=== PATIENT | male | born 1970 | race Caucasian/White ===

== ENCOUNTER 2016-11-15 16:36 | Outpatient (CLI) | payer MEDICAID | END 2016-11-15 16:37 | disposition critical access hospital (66) | LOC: EMS 16:36 | PROVIDERS: ATTEND Surgery | DX: R53.1 Weakness (principal); R10.30 Lower abdominal pain, unspecified | CPT/HCPCS: A0425; A0427 ==

== ENCOUNTER 2016-11-15 17:13 | Inpatient (IN) | payer MEDICAID ==
[2016-11-15] MEDS ORDERED: FOLIC ACID INJ 1 MG, THIAMINE INJ 100 MG, MAGNESIUM SULFATE 2 GM, MULTIVITAMIN 10 ML in... IV STA ×5 (17:21)
[2016-11-15] MEDS ORDERED: FAMOTIDINE 20 MG/50 ML 50 ML IV ONE ×2 (17:22→17:39)
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
[2016-11-15] MEDS ORDERED: LORazepam 2 MG/ML SYRINGE IVP STA ×5 (17:33→20:38)
[2016-11-15] MEDS ORDERED: LORazepam 2 MG/ML SYRINGE ONE ×3 (17:39→20:40)
[2016-11-15 18:01] LABS: BASOPHILS % (AUTO) 0.7 %; EOSINOPHILS % (AUTO) 1.1 %; HCT - HEMATOCRIT 23.6 % (42.0-52.0); HGB - HEMOGLOBIN 8.2 g/dL (14.0-18.0); LYMPHOCYTES # (AUTO) 0.9 10^3/uL (1.5-3.5); MEAN CORPUSCULAR HEMOGLOBIN 35.9 pg (27.0-31.0); MEAN CORPUSCULAR HGB CONC 34.8 g/dL (32.0-36.0); MEAN CORPUSCULAR VOLUME 103.1 fL (80.0-94.0); MEAN PLATELET VOLUME 7.6 fL (7.4-11.4); MONOCYTES # (AUTO) 0.6 10^3/uL (0.0-1.0); MONOCYTES % (AUTO) 12.2 %; NEUTROPHILS # (AUTO) 3.1 10^3/uL (1.5-6.6); NUCLEATED RED BLOOD CELLS AUTO 0.2 /100WBC; RED BLOOD COUNT 2.29 10^6/uL (4.70-6.10); RED CELL DISTRIBUTION WIDTH 12.9 % (12.0-15.0); UNCORRECTED WHITE BLOOD COUNT 4.6 x10^3/uL; WHITE BLOOD COUNT 4.6 x10^3/uL (4.8-10.8)
[2016-11-15 18:15] LABS: ALBUMIN/GLOBULIN RATIO 0.9 (1.0-2.2); BILIRUBIN,TOTAL 3.1 mg/dL (0.2-1.0); BUN - BLOOD UREA NITROGEN 5 mg/dL (6-20); CALCIUM 8.5 mg/dL (8.5-10.3); CARBON DIOXIDE - CO2 26 mmol/L (21-32); CHLORIDE 96 mmol/L (101-111); CREATININE 0.6 mg/dL (0.6-1.2); GFR - MDRD 145 (>89); GLUCOSE 117 mg/dL (70-100); LIPASE 149 U/L (22-51); POTASSIUM 2.6 mmol/L (3.5-5.0); SODIUM 130 mmol/L (135-145); TOTAL PROTEIN 6.5 g/dL (6.7-8.2)
--- NOTE | 2016-11-15 18:35 | CT Preliminary Report ---
Exam: CT Abdomen/Pelvis W/O IMPRESSION: 1. Peripancreatic edema suggesting early pancreatitis. 2. Marked elevation right hemidiaphragm such that right phrenic nerve palsy is in the differential. 3. Colonic diverticulosis. 4. Normal appendix. [facility] SITE ID: [id number]
--- NOTE | 2016-11-15 18:41 | CT Report ---
EXAM: CT ABDOMEN AND PELVIS EXAM DATE: 11/15/2016 06:08 PM. CLINICAL HISTORY: Upper abdominal pain, tachycardia. COMPARISONS: None. TECHNIQUE: Routine helical CT imaging was performed through the abdomen and pelvis. IV contrast: None . Enteric contrast: No. Reconstructions: Coronal and sagittal. In accordance with CT protocol optimization, one or more of the following dose reduction techniques w ere utilized for this exam: automated exposure control, adjustment of mA and/or KV based on patient s ize, or use of iterative reconstructive technique. FINDINGS: Lung Bases: Marked elevation right hemidiaphragm without subpulmonic effusion. Liver: Normal. No masses. Gallbladder/Bile Ducts: Unremarkable. Spleen: Normal. Pancreas: Small amount of linear edema surrounding the body and tail of the pancreas. Pancreas is of normal caliber without pancreatic duct dilatation. No appreciable focal pancreatic lesions. Adrenal Glands: Normal. Kidneys: Normal. No masses or hydronephrosis. Peritoneal Cavity/Bowel: Diverticuli off the colon.. No free fluid, free air or adenopathy. No masses or acute inflammatory process. The appendix is well visualized and normal. Pelvic Organs: Normal. The bladder and visualized pelvic organs are within normal limits. Vasculature: No aneurysms or other significant abnormality. Bones: No significant abnormality. Other: None. IMPRESSION: 1. Peripancreatic edema suggesting early pancreatitis. 2. Marked elevation right hemidiaphragm such that right phrenic nerve palsy not excluded. 3. Colonic diverticulosis. 4. Normal appendix. [facility] Referring Provider Line: [phone] SITE ID: [id number]
[2016-11-15 18:59] LABS: BILIRUBIN,URINE NEGATIVE (NEGATIVE); UA w/ MICROSCOPIC CHARGE YES
[2016-11-15] MEDS ORDERED: PANTOPRAZOLE 40 MG in SODIUM CHLORIDE 0.9% 100ML 100 ML IV STA (19:05)
[2016-11-15] MEDS ORDERED: SODIUM CHLORIDE 0.9% 1,000 ML IV ONE (19:05)
[2016-11-15 19:10] LABS: UR CULTURE IF IND INDICATED; WBC,URINE >25 /HPF (0-3)
[2016-11-15] MEDS ORDERED: NICOTINE 21 MG PATCH TOP STA (19:11)
[2016-11-15] MEDS ORDERED: NICOTINE 21 MG PATCH TOP ONE (19:14)
[2016-11-15] MEDS ORDERED: ONDANSETRON 4 MG/2 ML VIAL IVP PRN (19:38)
[2016-11-15] MEDS ORDERED: ACETAMINOPHEN 325 MG TABLET PO PRN (19:38)
[2016-11-15] MEDS ORDERED: MAGNESIUM SULFATE 2 GRAM 50 ML IV ONE ×2 (19:38→20:03)
[2016-11-15] MEDS ORDERED: ONDANSETRON ODT 4 MG TABLET TL PRN (19:38)
[2016-11-15] MEDS: LORazepam 2 MG/ML SYRINGE IVP PRN ×3 (20:11→21:37)
[2016-11-15] MEDS ORDERED: cefTRIAXone 1 GM in SODIUM CHLORIDE 0.9% MINIBAG 100 ML IV STA (20:16)
[2016-11-15] MEDS ORDERED: MAGNESIUM SULFATE 2 GRAM 50 ML IV SCH (20:17)
[2016-11-15] MEDS ORDERED: OLANZapine 10 MG VIAL IM ONE ×2 (20:38→20:41)
[2016-11-15] MEDS ORDERED: ROCURONIUM 50 MG/5 ML VIAL IVP ONE (21:20)
[2016-11-15] MEDS ORDERED: SUCCINYLCHOLINE 200 MG/10 ML VIAL IVP ONE (21:20)
[2016-11-15] MEDS ORDERED: PROPOFOL 200 MG/20 ML VIAL IVP ONE (21:20)
[2016-11-15] MEDS ORDERED: CIPROFLOXACIN 200 MG/100 ML 100 ML IV SCH (22:00)
[2016-11-15] MEDS: LORazepam 100MG/100ML 100 ML IV SCH (22:05)
[2016-11-15] MEDS ORDERED: ETOMIDATE 40 MG/20 ML VIAL IVP PRN (22:22)
[2016-11-15] MEDS: POTASSIUM CHLOR 10 MEQ/100 ML 100 ML IV SCH (22:44)
--- NOTE | 2016-11-15 23:06 | XRAY Preliminary Report ---
Exam: XR Chest 1 View IMPRESSION: 1. Satisfactory endotracheal tube placement. 2. The lungs are clear. 3. Distal end of nasogastric tube placed to gastric fundus. [facility] SITE ID: [id number]
--- NOTE | 2016-11-15 23:08 | XRAY Report ---
EXAM: CHEST RADIOGRAPHY EXAM DATE: 11/15/2016 10:38 PM. CLINICAL HISTORY: Tube placement. COMPARISON: None. TECHNIQUE: 1 view. FINDINGS: Lungs/Pleura: Slightly elevated right hemidiaphragm. The lungs are clear. No pleural effusion or pneu mothorax. Mediastinum: Within exam limitations, cardiomediastinal contour is normal. Other: Tip of endotracheal tube 5 cm above ulysses. Nasogastric tube placed in the gastric fundus. IMPRESSION: 1. Satisfactory endotracheal tube placement. 2. The lungs are clear. 3. Distal end of nasogastric tube placed to gastric fundus. [facility] Referring Provider Line: [phone] SITE ID: [id number]
[2016-11-15] MEDS: SODIUM CHLORIDE FLUSH 0.9% 10 ML SYRINGE IVP SCH (23:10)
[2016-11-15] MEDS ORDERED: PROPOFOL 200 MG/20 ML VIAL IVP PRN (23:14)
[2016-11-15 23:28] LABS: ABG ANALYSIS TIME 2304; ABG HCO3 23.2 mmol/L (22.0-26.0); ABG PCO2 34 mmHg (34-45); ABG PH 7.45 (7.35-7.45); ABG PO2 77 mmHg (80-100); ABG TCO2 24.3 MMOL/L (21.0-29.0)
[2016-11-15 23:29] LABS: ABG BASE EXCESS -0.5 mmol/L (-2.0-3.0); ABG O2 DEVICE VENTILATOR; ABG OXYGEN SATURATION 96 % (94-98); ABG SATURATION PULSE OXIMETRY% 100 %; ABG SITE OF DRAW RIGHT RADIAL; ALLEN TEST POSITIVE
[2016-11-15 23:30] LABS: ABG MODE OF VENTILATION SIMV; ABG PEAK END EXPIRATORY PRESSU 5 cmH2O; ABG PRESSURE SUPPORT VENT 10 cmH2O; ABG RESPIRATORY RATE 14 b/min
[2016-11-15] MEDS ORDERED: PROPOFOL 1000 MG/100 ML 100 ML IV ONE (23:59)
[2016-11-16] MEDS: POTASSIUM CHLOR 10 MEQ/100 ML 100 ML IV SCH ×7 (00:01→05:26)
[2016-11-16 03:57] LABS: BASOPHILS # (AUTO) 0.1 10^3/uL (0.0-0.1); BASOPHILS % (AUTO) 1.3 %; EOSINOPHILS # (AUTO) 0.1 10^3/uL (0.0-0.7); EOSINOPHILS % (AUTO) 1.1 %; HCT - HEMATOCRIT 23.5 % (42.0-52.0); LYMPHOCYTES # (AUTO) 0.8 10^3/uL (1.5-3.5); LYMPHOCYTES % (AUTO) 16.6 %; MEAN CORPUSCULAR HEMOGLOBIN 35.5 pg (27.0-31.0); MEAN CORPUSCULAR HGB CONC 34.1 g/dL (32.0-36.0); MEAN CORPUSCULAR VOLUME 104.3 fL (80.0-94.0); MEAN PLATELET VOLUME 7.5 fL (7.4-11.4); MONOCYTES # (AUTO) 0.5 10^3/uL (0.0-1.0); MONOCYTES % (AUTO) 11.6 %; NEUTROPHILS # (AUTO) 3.2 10^3/uL (1.5-6.6); NEUTROPHILS % (AUTO) 69.4 %; NUCLEATED RED BLOOD CELLS AUTO 0.1 /100WBC; RED BLOOD COUNT 2.25 10^6/uL (4.70-6.10); UNCORRECTED WHITE BLOOD COUNT 4.7 x10^3/uL; WHITE BLOOD COUNT 4.7 x10^3/uL (4.8-10.8)
[2016-11-16 04:11] LABS: BILIRUBIN,TOTAL 2.7 mg/dL (0.2-1.0); BUN - BLOOD UREA NITROGEN < 5 mg/dL (6-20); CALCIUM 7.9 mg/dL (8.5-10.3); CARBON DIOXIDE - CO2 22 mmol/L (21-32); CHLORIDE 107 mmol/L (101-111); CREATININE 0.5 mg/dL (0.6-1.2); GFR - MDRD 179 (>89); GLUCOSE 101 mg/dL (70-100); MAGNESIUM 2.6 mg/dL (1.7-2.8); POTASSIUM 2.7 mmol/L (3.5-5.0); SODIUM 135 mmol/L (135-145); TOTAL PROTEIN 5.9 g/dL (6.7-8.2)
[2016-11-16 04:13] LABS: PHOSPHORUS < 1.0 mg/dL (2.5-4.6)
[2016-11-16] MEDS: POTASSIUM PHOSPHATE 15 MMOL in SODIUM CHLORIDE 0.9% 250 ML IV SCH ×2 (04:48→10:09)
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
[2016-11-16] MEDS ORDERED: PROPOFOL 1000 MG/100 ML 100 ML IV ONE (06:26)
[2016-11-16] MEDS: PANTOPRAZOLE 40 MG VIAL IVP SCH ×2 (06:28→15:54)
[2016-11-16] MEDS: SODIUM CHLORIDE FLUSH 0.9% 10 ML SYRINGE IVP SCH ×3 (06:28→23:35)
[2016-11-16] MEDS: PROPOFOL 1000 MG/100 ML 100 ML IV SCH ×3 (06:35→20:33)
[2016-11-16 07:20] LABS: FOLATE 13.51 ng/mL (5.90 - >24.8)
[2016-11-16] MEDS ORDERED: SODIUM CHLORIDE 0.9% 1,000 ML IV ONE (08:00)
--- NOTE | 2016-11-16 08:20 | PROVIDER PROGRESS NOTE ---
Assessment/Plan - Problem List (1) GI bleed Qualifiers: GI bleed type/associated pathology: unspecified gastrointestinal hemorrhage type Qualified Code(s): K92.2 - Gastrointestinal hemorrhage, unspecified Assessment/Plan: reji is moderately anemic and reports black stool last week Hemoccult pending Not urgent need for consult or EGD. (2) Pancreatitis Qualifiers: Chronicity: acute Pancreatitis type: alcohol induced Acute pancreatitis complication: unspecified Qualified Code(s): K85.20 - Alcohol induced acute pancreatitis without necrosis or infection Assessment/Plan: Lipase almost nml Will not neeed further diagnostics at this point. Likewise MRCP will be postponed. (3) UTI (urinary tract infection) Qualifiers: Urinary tract infection type: site unspecified Hematuria presence: with hematuria Qualified Code(s): N39.0 - Urinary tract infection, site not specified; R31.9 - Hematuria, unspecified Assessment/Plan: His culture results are pending. Will change cipro to Rocephin due to potential propofol interaction. (4) Acute alcohol intoxication delirium with moderate or severe use disorder Assessment/Plan: He was extremely aggitated and hstile last night requiring his sedation and intubation. Will not try a CPAP trial for 24 hours at the least. He is hypotensive with the propofol so giving a saline bolus and may need to give PRBCs. This could be a 5-7 day seige. - Current Meds Current Meds: Current Medications Generic Name Dose Route Start Last Admin Trade Name Freq PRN Reason Stop Dose Admin Lorazepam 100 mls @ 0.635 mls/hr 11/15/16 22:00 11/16/16 02:54 Ativan IV 0.1 mg/kg/hr .Q72H SHARRI Titration Protocol 0.01 MG/KG/HR Ciprofloxacin 100 mls @ 100 mls/hr 11/15/16 22:00 11/15/16 23:32 Cipro 200 Mg/100 Ml IV 100 mls/hr Q12H SHARRI Administration Potassium Phosphate 15 mmol/ 255 mls @ 63 mls/hr 11/16/16 05:00 11/16/16 04:48 Sodium Chloride IV 11/16/16 12:59 63 mls/hr Q4H SHARRI Administration Propofol 100 mls @ 3.81 mls/hr 11/16/16 07:00 11/16/16 06:36 Diprivan IV 35 mcg/kg/min .[id number] SHARRI Titration Protocol 10 MCG/KG/MIN Lorazepam 2 mg 11/15/16 19:38 11/15/16 21:37 Ativan Inj IVP 2 mg Q30M PRN Administration CIWA>8 Protocol Pantoprazole Sodium 40 mg 11/16/16 07:00 11/16/16 06:28 Protonix IVP 40 mg BIDAC SHARRI Administration Sodium Chloride 10 ml 11/15/16 22:00 11/16/16 06:28 Normal Saline Flush 0.9% IVP 10 ml Q8HR SHARRI Administration - Lab Result Fish Bone Diagrams: 11/16/16 03:48 11/16/16 07:25 - Additional Planning My Orders: My Active Orders 11/16/16 06:34 Notify Provider - Specific Ins [RC] PRN 11/16/16 07:00 Propofol 1000 mg/100 ml [Diprivan] 100 ml IV 10 mcg/kg/min 11/16/16 08:00 Sodium Chloride 0.9% [Normal Saline 0.9%] 1,000 ml IV ONCE 11/16/16 08:15 Anesthesia Consult [CONS] Routine 11/16/16 08:16 PICC Line Insert [RC] .ONCE 11/17/16 05:00 CBC - COMP BLD CT W/AUTO DIFF [HEME] DAILYLAB COMPREHENSIVE METABOLIC PANEL [CHEM] DAILYLAB 11/18/16 05:00 CBC - COMP BLD CT W/AUTO DIFF [HEME] DAILYLAB COMPREHENSIVE METABOLIC PANEL [CHEM] DAILYLAB 11/19/16 05:00 CBC - COMP BLD CT W/AUTO DIFF [HEME] DAILYLAB COMPREHENSIVE METABOLIC PANEL [CHEM] DAILYLAB 11/20/16 05:00 CBC - COMP BLD CT W/AUTO DIFF [HEME] DAILYLAB COMPREHENSIVE METABOLIC PANEL [CHEM] DAILYLAB Subjective - Subjective Nursing Reports: Sedated Objective Vital Signs: Vital Signs - 24 hr 11/15/16 11/15/16 11/15/16 20:13 22:00 23:00 Temperature Heart Rate 103 H 122 H Heart Rate [ 128 H 131 H Monitoring electrodes] Respiratory 16 14 12 Rate Blood Pressure 116/78 Blood Pressure 120/78 152/92 H [Left Brachial artery] O2 Saturation 99 100 100 11/16/16 11/16/16 11/16/16 00:00 00:25 01:00 Temperature 37.4 C Heart Rate 130 H Heart Rate [ 142 H 134 H Monitoring electrodes] Respiratory 17 16 Rate Blood Pressure Blood Pressure 130/77 99/74 [Left Brachial artery] O2 Saturation 100 100 11/16/16 11/16/16 11/16/16 02:00 02:30 02:57 Temperature Heart Rate 123 H Heart Rate [ 130 H 122 H Monitoring electrodes] Respiratory 13 15 Rate Blood Pressure Blood Pressure 85/57 L 113/80 [Left Brachial artery] O2 Saturation 100 100 11/16/16 11/16/16 11/16/16 04:00 04:25 05:00 Temperature Heart Rate 117 H Heart Rate [ 116 H 112 H Monitoring electrodes] Respiratory 14 14 Rate Blood Pressure Blood Pressure 104/56 L 87/65 L [Left Brachial artery] O2 Saturation 100 100 11/16/16 11/16/16 11/16/16 06:00 06:49 07:49 Temperature Heart Rate 100 Heart Rate [ 113 H 108 H Monitoring electrodes] Respiratory 14 16 Rate Blood Pressure Blood Pressure 91/66 87/56 L [Left Brachial artery] O2 Saturation 100 100 Oxygen O2 Source Mechanical ventilator I&O (Last 24 Hrs): Intake and Output Totals x24h 11/14/16 11/15/16 11/16/16 23:59 23:59 23:59 Intake Total 2452 Output Total 2085 Balance 367 HEENT: PERRLA, EOMI Neck: No JVD, No thyromegaly Neuro: Disoriented Cardiovascular: Other (tachycardia) Respiratory: No respiratory distress, Breath sounds nml Abdomen: Normal bowel sounds, No tenderness Extremities: No clubbing, No cyanosis, No edema, Normal pulses Skin: No rashes, No breakdown - Results Results: Laboratory Results WBC 4.7 x10^3/uL (4.8-10.8) L 11/16/16 03:48 RBC 2.25 10^6/uL (4.70-6.10) L 11/16/16 03:48 Hgb 8.0 g/dL (14.0-18.0) L 11/16/16 03:48 Hct 23.5 % (42.0-52.0) L 11/16/16 03:48 MCV 104.3 fL (80.0-94.0) H 11/16/16 03:48 MCH 35.5 pg (27.0-31.0) H 11/16/16 03:48 MCHC 34.1 g/dL (32.0-36.0) 11/16/16 03:48 RDW 13.0 % (12.0-15.0) 11/16/16 03:48 Plt Count 149 10^3/uL (130-450) 11/16/16 03:48 MPV 7.5 fL (7.4-11.4) 11/16/16 03:48 Neut # 3.2 10^3/uL (1.5-6.6) 11/16/16 03:48 Lymph # 0.8 10^3/uL (1.5-3.5) L 11/16/16 03:48 [place] # 0.5 10^3/uL (0.0-1.0) 11/16/16 03:48 Eos # 0.1 10^3/uL (0.0-0.7) 11/16/16 03:48 Baso # 0.1 10^3/uL (0.0-0.1) 11/16/16 03:48 Absolute Nucleated RBC 0.01 x10^3/uL 11/16/16 03:48 Nucleated RBCs 0.1 /100WBC 11/16/16 03:48 Whole Blood INR 1.0 (0.8-1.2) 11/15/16 19:39 Bld Gas Analysis Time 2304 11/15/16 22:55 Sample Site RIGHT RADIAL 11/15/16 22:55 ABG pH 7.45 (7.35-7.45) 11/15/16 22:55 ABG pCO2 34 mmHg (34-45) 11/15/16 22:55 ABG pO2 77 mmHg (80-100) L 11/15/16 22:55 ABG HCO3 23.2 mmol/L (22.0-26.0) 11/15/16 22:55 ABG Total CO2 24.3 MMOL/L (21.0-29.0) 11/15/16 22:55 ABG O2 Saturation 96 % (94-98) 11/15/16 22:55 ABG Oximetry Spot Check 100 % 11/15/16 22:55 ABG Base Excess -0.5 mmol/L (-2.0-3.0) 11/15/16 22:55 Sherwin Test POSITIVE 11/15/16 22:55 Respiration Rate 14 b/min 11/15/16 22:55 O2 Delivery Device VENTILATOR 11/15/16 22:55 Vent Mode SIMV 11/15/16 22:55 FiO2 30.00 11/15/16 22:55 Tidal Volume 500 mL 11/15/16 22:55 PEEP 5 cmH2O 11/15/16 22:55 Pressure Support Vent 10 cmH2O 11/15/16 22:55 Sodium 135 mmol/L (135-145) 11/16/16 03:48 Potassium 3.2 mmol/L (3.5-5.0) L 11/16/16 07:25 Chloride 107 mmol/L (101-111) 11/16/16 03:48 Carbon Dioxide 22 mmol/L (21-32) 11/16/16 03:48 Anion Gap 6.0 (6-13) 11/16/16 03:48 BUN < 5 mg/dL (6-20) L 11/16/16 03:48 Creatinine 0.5 mg/dL (0.6-1.2) L 11/16/16 03:48 Estimated GFR (MDRD) 179 (>89) 11/16/16 03:48 Glucose 101 mg/dL (70-100) H 11/16/16 03:48 Calcium 7.9 mg/dL (8.5-10.3) L 11/16/16 03:48 Phosphorus < 1.0 mg/dL (2.5-4.6) L* 11/16/16 03:48 Magnesium 2.6 mg/dL (1.7-2.8) 11/16/16 03:48 Total Bilirubin 2.7 mg/dL (0.2-1.0) H 11/16/16 03:48 AST 138 IU/L (10-42) H 11/16/16 03:48 ALT 96 IU/L (10-60) H 11/16/16 03:48 Alkaline Phosphatase 230 IU/L (42-121) H 11/16/16 03:48 Total Protein 5.9 g/dL (6.7-8.2) L 11/16/16 03:48 Albumin 2.9 g/dL (3.2-5.5) L 11/16/16 03:48 Globulin 3.0 g/dL (2.1-4.2) 11/16/16 03:48 Albumin/Globulin Ratio 1.0 (1.0-2.2) 11/16/16 03:48 Lipase 149 U/L (22-51) H 11/15/16 17:52 Vitamin B12 2975 pg/mL (180-914) H 11/16/16 03:48 Folate 13.51 ng/mL (5.90 - >24.8) 11/16/16 03:48 Urine Color DARK YELLOW 11/15/16 18:30 Urine Clarity CLEAR (CLEAR) 11/15/16 18:30 Urine pH 6.0 PH (5.0-7.5) 11/15/16 18:30 Ur Specific [place] <=1.005 (1.002-1.030) 11/15/16 18:30 Urine Protein NEGATIVE mg/dL (NEGATIVE) 11/15/16 18:30 Urine Glucose (UA) NEGATIVE mg/dL (NEGATIVE) 11/15/16 18:30 Urine Ketones NEGATIVE mg/dL (NEGATIVE) 11/15/16 18:30 Urine Occult Blood MODERATE (NEGATIVE) H 11/15/16 18:30 Urine Nitrite POSITIVE (NEGATIVE) H 11/15/16 18:30 Urine Bilirubin NEGATIVE (NEGATIVE) 11/15/16 18:30 Urine Urobilinogen >=8.0 E.U./dL (NORMAL) H 11/15/16 18:30 Ur Leukocyte Esterase LARGE (NEGATIVE) H 11/15/16 18:30 Urine RBC 11-25 /HPF (0-5) H 11/15/16 18:30 Urine WBC >25 /HPF (0-3) H 11/15/16 18:30 Urine WBC Clumps PRESENT 11/15/16 18:30 Ur Squamous Epith Cells FEW Squamous (<= Few) 11/15/16 18:30 Urine Bacteria Many /HPF (None Seen) H 11/15/16 18:30 Urine Casts 0-2 Hyaline Casts /LPF 11/15/16 18:30 Urine Mucus Few Strands 11/15/16 18:30 Ur Microscopic Review INDICATED 11/15/16 18:30 Urine Culture Comments INDICATED 11/15/16 18:30 Urine Opiates Screen NEGATIVE (NEGATIVE) 11/15/16 18:30 Ur Oxycodone Screen NEGATIVE (NEGATIVE) 11/15/16 18:30 Urine Methadone Screen NEGATIVE (NEGATIVE) 11/15/16 18:30 Ur Propoxyphene Screen NEGATIVE (NEGATIVE) 11/15/16 18:30 Ur Barbiturates Screen NEGATIVE (NEGATIVE) 11/15/16 18:30 Ur Tricyclics Screen NEGATIVE (NEGATIVE) 11/15/16 18:30 Ur Phencyclidine Scrn NEGATIVE (NEGATIVE) 11/15/16 18:30 Ur Amphetamine Screen NEGATIVE (NEGATIVE) 11/15/16 18:30 U Methamphetamines Scrn NEGATIVE (NEGATIVE) 11/15/16 18:30 U Benzodiazepines Scrn NEGATIVE (NEGATIVE) 11/15/16 18:30 Urine Cocaine Screen NEGATIVE (NEGATIVE) 11/15/16 18:30 U Cannabinoids Screen POSITIVE (NEGATIVE) H 11/15/16 18:30 Ethyl Alcohol < 5.0 mg/dL 11/15/16 17:52 Blood Type O POSITIVE 11/15/16 17:52 Antibody Screen NEGATIVE 11/15/16 17:52
[2016-11-16] MEDS ORDERED: cefTRIAXone 1 GM VIAL IVP SCH (09:00)
[2016-11-16] MEDS: SODIUM CHLORIDE FLUSH 0.9% 10 ML SYRINGE IVP PRN ×2 (09:06→10:22)
[2016-11-16] MEDS: cefTRIAXone 1 GM in SODIUM CHLORIDE 0.9% MINIBAG 100 ML IV SCH (09:21)
[2016-11-16] MEDS ORDERED: POTASSIUM CHLORIDE 20 MEQ/15 ML UDC PO ONE (09:44)
[2016-11-16] MEDS ORDERED: CARBOXYMETHYLCELLULOSE OPHTH DROPS EACHEYE PRN (09:45)
[2016-11-16] MEDS ORDERED: MORPHINE 2 MG/ML SYRINGE ONE (10:18)
[2016-11-16] MEDS ORDERED: MORPHINE 10 MG/ML VIAL IVP ONE (10:18)
[2016-11-16] MEDS: POLYETHYLENE GLYCOL 3350 17 GM PACKET PO SCH (11:29)
[2016-11-16] MEDS: MULTIVITAMIN 10 ML, THIAMINE INJ 100 MG, FOLIC ACID INJ 1 MG in SODIUM CHLORIDE 0.9% 1,... IV SCH ×2 (11:31→12:43)
--- NOTE | 2016-11-16 13:39 | XRAY Report ---
FRONTAL CHEST: 11/16/2016 CLINICAL INDICATION: Line placement. COMPARISON: 11/15/2016. FINDINGS: Frontal view of the chest demonstrates an endotracheal tube terminating approximately 3 cm above the ulysses. A nasogastric tube terminates in the stomach. A right jugular central venous jim ter terminates in the superior vena cava. Minimal right basilar atelectasis or infiltrate is present. No effusion or pneumothorax. IMPRESSION: RIGHT JUGULAR LINE TERMINATING IN THE DISTAL SUPERIOR VENA CAVA. NO POSTPROCEDURE PNEUMO THORAX. MILD RIGHT BASILAR AIR SPACE DISEASE. JOB #: [id number] EXT JOB #:[id number]
[2016-11-16] MEDS: LORazepam 100MG/100ML 100 ML IV SCH (13:44)
[2016-11-16] MEDS ORDERED: SODIUM CHLORIDE FLUSH 0.9% 10 ML SYRINGE IVP PRN (14:27)
[2016-11-16] MEDS ORDERED: SODIUM CHLORIDE 0.9% 500 ML IV PRN ×2 (14:27→15:15)
[2016-11-16] MEDS: MORPHINE 2 MG/ML SYRINGE IVP PRN (23:35)
[2016-11-17] MEDS: MORPHINE 2 MG/ML SYRINGE IVP PRN ×7 (04:01→23:16)
[2016-11-17] MEDS: SODIUM CHLORIDE 0.9% 1,000 ML IV SCH ×2 (04:02→18:00)
[2016-11-17] MEDS: SODIUM CHLORIDE FLUSH 0.9% 10 ML SYRINGE IVP SCH ×3 (04:02→19:39)
[2016-11-17] MEDS: PROPOFOL 1000 MG/100 ML 100 ML IV SCH ×3 (04:02→23:16)
[2016-11-17 04:55] LABS: BASOPHILS % (AUTO) 0.7 %; EOSINOPHILS # (AUTO) 0.2 10^3/uL (0.0-0.7); EOSINOPHILS % (AUTO) 2.8 %; HCT - HEMATOCRIT 21.9 % (42.0-52.0); HGB - HEMOGLOBIN 7.4 g/dL (14.0-18.0); LYMPHOCYTES # (AUTO) 0.9 10^3/uL (1.5-3.5); LYMPHOCYTES % (AUTO) 14.6 %; MEAN CORPUSCULAR HEMOGLOBIN 36.3 pg (27.0-31.0); MEAN CORPUSCULAR HGB CONC 33.7 g/dL (32.0-36.0); MEAN CORPUSCULAR VOLUME 107.7 fL (80.0-94.0); MEAN PLATELET VOLUME 7.5 fL (7.4-11.4); MONOCYTES # (AUTO) 0.7 10^3/uL (0.0-1.0); MONOCYTES % (AUTO) 11.7 %; NEUTROPHILS # (AUTO) 4.1 10^3/uL (1.5-6.6); NEUTROPHILS % (AUTO) 70.2 %; NUCLEATED RED BLOOD CELLS AUTO 0.1 /100WBC; RED BLOOD COUNT 2.04 10^6/uL (4.70-6.10); RED CELL DISTRIBUTION WIDTH 13.7 % (12.0-15.0); UNCORRECTED WHITE BLOOD COUNT 5.8 x10^3/uL; WHITE BLOOD COUNT 5.8 x10^3/uL (4.8-10.8)
[2016-11-17 05:05] LABS: ALBUMIN/GLOBULIN RATIO 0.9 (1.0-2.2); CALCIUM 7.7 mg/dL (8.5-10.3); CREATININE 0.3 mg/dL (0.6-1.2); POTASSIUM 2.9 mmol/L (3.5-5.0); TOTAL PROTEIN 5.6 g/dL (6.7-8.2)
[2016-11-17 06:03] LABS: ABG PCO2 34 mmHg (34-45); ABG PH 7.39 (7.35-7.45)
[2016-11-17 06:04] LABS: ABG BASE EXCESS -3.9 mmol/L (-2.0-3.0); ABG HCO3 20.5 mmol/L (22.0-26.0); ABG MODE OF VENTILATION SIMV; ABG O2 DEVICE VENTILATOR; ABG OXYGEN SATURATION 98 % (94-98); ABG PO2 117 mmHg (80-100); ABG SATURATION PULSE OXIMETRY% 100 %; ABG SITE OF DRAW RIGHT RADIAL; ABG TCO2 21.5 MMOL/L (21.0-29.0); ALLEN TEST POSITIVE
[2016-11-17 06:05] LABS: ABG PEAK END EXPIRATORY PRESSU 5 cmH2O; ABG PRESSURE SUPPORT VENT 10 cmH2O; ABG RESPIRATORY RATE 12 b/min
[2016-11-17 06:18] LABS: MAGNESIUM 2.3 mg/dL (1.7-2.8); PHOSPHORUS 2.5 mg/dL (2.5-4.6)
[2016-11-17] MEDS: PANTOPRAZOLE 40 MG VIAL IVP SCH ×2 (06:24→15:45)
[2016-11-17] MEDS: POTASSIUM CHLOR 20 MEQ/100 ML 100 ML IV SCH ×4 (06:24→09:32)
[2016-11-17] MEDS: POLYETHYLENE GLYCOL 3350 17 GM PACKET PO SCH (08:28)
[2016-11-17] MEDS: cefTRIAXone 1 GM in SODIUM CHLORIDE 0.9% MINIBAG 100 ML IV SCH (08:30)
[2016-11-17] MEDS: MULTIVITAMIN 10 ML, THIAMINE INJ 100 MG, FOLIC ACID INJ 1 MG in SODIUM CHLORIDE 0.9% 1,... IV SCH (08:30)
--- NOTE | 2016-11-17 08:57 | PROVIDER PROGRESS NOTE ---
Assessment/Plan - Problem List (1) GI bleed Qualifiers: GI bleed type/associated pathology: unspecified gastrointestinal hemorrhage type Qualified Code(s): K92.2 - Gastrointestinal hemorrhage, unspecified Assessment/Plan: Alexs H/H has dropped further. He is 11/17. given he is on te vent, despite no further gross bleeding his [place] was pos yesterday so will transfuse two units PRBCs today. Not to get EGD yet. (2) Pancreatitis Qualifiers: Chronicity: acute Pancreatitis type: alcohol induced Acute pancreatitis complication: unspecified Qualified Code(s): K85.20 - Alcohol induced acute pancreatitis without necrosis or infection Assessment/Plan: Near nml Lipase and not an issue at this point (3) UTI (urinary tract infection) Qualifiers: Urinary tract infection type: site unspecified Hematuria presence: with hematuria Qualified Code(s): N39.0 - Urinary tract infection, site not specified; R31.9 - Hematuria, unspecified Assessment/Plan: He has E Coli sens pending will Change antibx if necessary. (4) Acute alcohol intoxication delirium with moderate or severe use disorder Assessment/Plan: His sedation med needs has dropped. He is on 30% O2. O2 sat is 98-100%. Will do trial of weaning and see if can do Cpap trial. - Current Meds Current Meds: Current Medications Generic Name Dose Route Start Last Admin Trade Name Freq PRN Reason Stop Dose Admin Carboxymethylcellulose 1 drops 11/16/16 09:45 11/16/16 11:29 Refresh 1% Ophth Drops EACHEYE 1 drops PRN PRN Administration Dry Eye Multivitamins 10 ml/ Thiamine 1,011.2 mls @ 100 mls/hr 11/16/16 09:00 11/17/16 08:30 HCl 100 mg/ Folic Acid 1 mg/ IV 100 mls/hr Sodium Chloride DAILY SHARRI Administration Lorazepam 100 mls @ 0.635 mls/hr 11/15/16 22:00 11/17/16 04:11 Ativan IV 0.06 mg/kg/hr .Q72H SHARRI Titration Protocol 0.01 MG/KG/HR Propofol 100 mls @ 3.81 mls/hr 11/16/16 07:00 11/17/16 04:12 Diprivan IV 35 mcg/kg/min .[id number] SHARRI Titration Protocol 10 MCG/KG/MIN Ceftriaxone Sodium 1 gm/ 100 mls @ 200 mls/hr 11/16/16 09:00 11/17/16 08:30 Sodium Chloride IV 200 mls/hr DAILY SHARRI Administration Sodium Chloride 500 mls @ 20 mls/hr 11/16/16 15:15 11/16/16 15:18 Normal Saline 0.9% IV 20 mls/hr .Q25H PRN Administration Central Line Protocol Sodium Chloride 1,000 mls @ 100 mls/hr 11/17/16 04:00 11/17/16 04:02 Normal Saline 0.9% IV 100 mls/hr .Q10H SHARRI Administration Potassium Chloride 100 mls @ 100 mls/hr 11/17/16 07:00 11/17/16 08:27 Potassium Chloride IV 11/17/16 10:59 100 mls/hr Q1H SHARRI Administration Protocol Lorazepam 2 mg 11/15/16 19:38 11/15/16 21:37 Ativan Inj IVP 2 mg Q30M PRN Administration CIWA>8 Protocol Morphine Sulfate 2 mg 11/16/16 10:42 11/17/16 04:01 Morphine IVP 1 mg Q2HR PRN Administration PAIN Pantoprazole Sodium 40 mg 11/16/16 07:00 11/17/16 06:24 Protonix IVP 40 mg BIDAC SHARRI Administration Polyethylene Glycol 17 gm 11/16/16 09:00 11/17/16 08:28 Miralax PO Not Given DAILY SHARRI Sodium Chloride 10 ml 11/15/16 19:38 11/16/16 10:22 Normal Saline Flush 0.9% IVP 10 ml PRN PRN Administration NEEDED PER PROVIDER ORDERS Sodium Chloride 10 ml 11/15/16 22:00 11/17/16 04:02 Normal Saline Flush 0.9% IVP 10 ml Q8HR SHARRI Administration - Lab Result Fish Bone Diagrams: 11/17/16 04:35 11/17/16 04:35 - Additional Planning My Orders: My Active Orders 11/16/16 08:15 Anesthesia Consult [CONS] Routine 11/16/16 08:16 PICC Line Insert [RC] .ONCE 11/16/16 09:00 cefTRIAXone [Rocephin] 1 gm Sodium Chloride 0.9% Minibag [Normal Saline 0.9% Minibag] 100 ml IV DAILY 11/16/16 09:45 Carboxymethylcellulose 1% Opht [Refresh 1% Ophth Drops] 1 drops EACHEYE PRN PRN 11/16/16 10:42 Morphine Inj [Morphine] 2 mg IVP Q2HR PRN 11/16/16 14:25 Tube Feeding [RC] QSHIFT 11/16/16 14:27 Heparin Flush 30 - 50 unit IVP ONCE PRN Sodium Chloride Flush 0.9% [Normal Saline Flush 0.9%] 20 ml IVP PRN PRN 11/16/16 15:15 Sodium Chloride 0.9% [Normal Saline 0.9%] 500 ml IV 20 mls/hr 11/17/16 07:00 Potassium Chlor 20 Meq/100 ml [Potassium Chloride] 100 ml IV Q1H 11/18/16 05:00 CBC - COMP BLD CT W/AUTO DIFF [HEME] DAILYLAB COMPREHENSIVE METABOLIC PANEL [CHEM] DAILYLAB MAGNESIUM [CHEM] DAILYLAB PHOSPHORUS [CHEM] DAILYLAB 11/19/16 05:00 CBC - COMP BLD CT W/AUTO DIFF [HEME] DAILYLAB COMPREHENSIVE METABOLIC PANEL [CHEM] DAILYLAB MAGNESIUM [CHEM] DAILYLAB PHOSPHORUS [CHEM] DAILYLAB 11/20/16 05:00 CBC - COMP BLD CT W/AUTO DIFF [HEME] DAILYLAB COMPREHENSIVE METABOLIC PANEL [CHEM] DAILYLAB MAGNESIUM [CHEM] DAILYLAB PHOSPHORUS [CHEM] DAILYLAB Subjective - Subjective Nursing Reports: Sedated Objective Vital Signs: Vital Signs - 24 hr 11/16/16 11/16/16 11/16/16 09:00 09:23 10:00 Temperature Heart Rate 90 Heart Rate [ 86 77 Monitoring electrodes] Respiratory 14 13 Rate Blood Pressure 88/58 L 100/60 [Left Brachial artery] O2 Saturation 100 100 11/16/16 11/16/16 11/16/16 11:00 11:29 12:00 Temperature 36.2 C L Heart Rate 87 Heart Rate [ 81 82 Monitoring electrodes] Respiratory 12 12 Rate Blood Pressure 89/55 L 91/58 L [Left Brachial artery] O2 Saturation 100 100 11/16/16 11/16/16 11/16/16 13:00 13:48 14:00 Temperature Heart Rate 81 Heart Rate [ 80 76 Monitoring electrodes] Respiratory 12 12 Rate Blood Pressure 91/62 87/52 L [Left Brachial artery] O2 Saturation 100 100 11/16/16 11/16/16 11/16/16 15:00 15:35 16:00 Temperature 36.0 C L Heart Rate 72 Heart Rate [ 77 70 Monitoring electrodes] Respiratory 12 12 Rate Blood Pressure 84/49 L 96/61 [Left Brachial artery] O2 Saturation 100 100 11/16/16 11/16/16 11/16/16 17:00 18:00 19:00 Temperature Heart Rate Heart Rate [ 70 89 82 Monitoring electrodes] Respiratory 12 12 12 Rate Blood Pressure 89/60 L 97/55 L 106/71 [Left Brachial artery] O2 Saturation 100 100 100 11/16/16 11/16/16 11/16/16 19:50 20:00 21:00 Temperature Heart Rate 81 Heart Rate [ 76 82 Monitoring electrodes] Respiratory 12 11 L Rate Blood Pressure 90/57 L 106/71 [Left Brachial artery] O2 Saturation 100 100 11/16/16 11/16/16 11/16/16 21:16 21:50 22:00 Temperature 36.6 C Heart Rate 80 Heart Rate [ 82 Monitoring electrodes] Respiratory 13 Rate Blood Pressure 90/57 L [Left Brachial artery] O2 Saturation 100 11/16/16 11/16/16 11/17/16 23:00 23:50 00:00 Temperature 36.0 C L Heart Rate 79 Heart Rate [ 89 83 Monitoring electrodes] Respiratory 13 13 Rate Blood Pressure 103/72 96/58 L [Left Brachial artery] O2 Saturation 100 100 11/17/16 11/17/16 11/17/16 01:00 01:50 02:00 Temperature Heart Rate 78 Heart Rate [ 85 79 Monitoring electrodes] Respiratory 12 12 Rate Blood Pressure 89/56 L 94/58 L [Left Brachial artery] O2 Saturation 100 100 11/17/16 11/17/16 11/17/16 03:00 03:50 04:00 Temperature 36.2 C L Heart Rate 84 Heart Rate [ 86 75 Monitoring electrodes] Respiratory 10 L 12 Rate Blood Pressure 105/70 105/70 [Left Brachial artery] O2 Saturation 100 100 11/17/16 11/17/16 11/17/16 05:00 05:50 06:00 Temperature Heart Rate 78 Heart Rate [ 86 83 Monitoring electrodes] Respiratory 12 12 Rate Blood Pressure 102/67 103/63 [Left Brachial artery] O2 Saturation 100 100 11/17/16 11/17/16 11/17/16 07:00 07:20 08:00 Temperature 36 C L Heart Rate 79 Heart Rate [ 78 76 Monitoring electrodes] Respiratory 13 12 Rate Blood Pressure 90/55 L 99/65 [Left Brachial artery] O2 Saturation 100 100 Oxygen O2 Source Mechanical ventilator I&O (Last 24 Hrs): Intake and Output Totals x24h 11/15/16 11/16/16 11/17/16 23:59 23:59 23:59 Intake Total 5629 1492 Output Total 3207 280 Balance 2422 1212 General: No acute distress HEENT: PERRLA, EOMI Neck: No JVD, No thyromegaly Neuro: Non Focal Cardiovascular: Regular rate, No murmurs Respiratory: Chest non-tender, No respiratory distress, Breath sounds nml Abdomen: Normal bowel sounds, Soft Extremities: No clubbing, No cyanosis, No edema Skin: No rashes, No breakdown - Results Results: Laboratory Results WBC 5.8 x10^3/uL (4.8-10.8) 11/17/16 04:35 RBC 2.04 10^6/uL (4.70-6.10) L 11/17/16 04:35 Hgb 7.4 g/dL (14.0-18.0) L 11/17/16 04:35 Hct 21.9 % (42.0-52.0) L 11/17/16 04:35 MCV 107.7 fL (80.0-94.0) H 11/17/16 04:35 MCH 36.3 pg (27.0-31.0) H 11/17/16 04:35 MCHC 33.7 g/dL (32.0-36.0) 11/17/16 04:35 RDW 13.7 % (12.0-15.0) 11/17/16 04:35 Plt Count 197 10^3/uL (130-450) 11/17/16 04:35 MPV 7.5 fL (7.4-11.4) 11/17/16 04:35 Neut # 4.1 10^3/uL (1.5-6.6) 11/17/16 04:35 Lymph # 0.9 10^3/uL (1.5-3.5) L 11/17/16 04:35 [place] # 0.7 10^3/uL (0.0-1.0) 11/17/16 04:35 Eos # 0.2 10^3/uL (0.0-0.7) 11/17/16 04:35 Baso # 0.0 10^3/uL (0.0-0.1) 11/17/16 04:35 Absolute Nucleated RBC 0.00 x10^3/uL 11/17/16 04:35 Nucleated RBCs 0.1 /100WBC 11/17/16 04:35 Whole Blood INR 1.0 (0.8-1.2) 11/15/16 19:39 Bld Gas Analysis Time 0550 11/17/16 04:35 Sample Site RIGHT RADIAL 11/17/16 04:35 ABG pH 7.39 (7.35-7.45) 11/17/16 04:35 ABG pCO2 34 mmHg (34-45) 11/17/16 04:35 ABG pO2 117 mmHg (80-100) H 11/17/16 04:35 ABG HCO3 20.5 mmol/L (22.0-26.0) L 11/17/16 04:35 ABG Total CO2 21.5 MMOL/L (21.0-29.0) 11/17/16 04:35 ABG O2 Saturation 98 % (94-98) 11/17/16 04:35 ABG Oximetry Spot Check 100 % 11/17/16 04:35 ABG Base Excess -3.9 mmol/L (-2.0-3.0) L 11/17/16 04:35 Sherwin Test POSITIVE 11/17/16 04:35 Respiration Rate 12 b/min 11/17/16 04:35 O2 Delivery Device VENTILATOR 11/17/16 04:35 Vent Mode SIMV 11/17/16 04:35 FiO2 40.00 11/17/16 04:35 Tidal Volume 450 mL 11/17/16 04:35 PEEP 5 cmH2O 11/17/16 04:35 Pressure Support Vent 10 cmH2O 11/17/16 04:35 Sodium 139 mmol/L (135-145) 11/17/16 04:35 Potassium 2.9 mmol/L (3.5-5.0) L 11/17/16 04:35 Chloride 112 mmol/L (101-111) H 11/17/16 04:35 Carbon Dioxide 21 mmol/L (21-32) 11/17/16 04:35 Anion Gap 6.0 (6-13) 11/17/16 04:35 BUN 5 mg/dL (6-20) L 11/17/16 04:35 Creatinine 0.3 mg/dL (0.6-1.2) L 11/17/16 04:35 Estimated GFR (MDRD) 323 (>89) 11/17/16 04:35 Glucose 115 mg/dL (70-100) H 11/17/16 04:35 Calcium 7.7 mg/dL (8.5-10.3) L 11/17/16 04:35 Phosphorus 2.5 mg/dL (2.5-4.6) 11/17/16 04:35 Magnesium 2.3 mg/dL (1.7-2.8) 11/17/16 04:35 Total Bilirubin 2.0 mg/dL (0.2-1.0) H 11/17/16 04:35 AST 77 IU/L (10-42) H 11/17/16 04:35 ALT 73 IU/L (10-60) H 11/17/16 04:35 Alkaline Phosphatase 202 IU/L (42-121) H 11/17/16 04:35 Total Protein 5.6 g/dL (6.7-8.2) L 11/17/16 04:35 Albumin 2.6 g/dL (3.2-5.5) L 11/17/16 04:35 Globulin 3.0 g/dL (2.1-4.2) 11/17/16 04:35 Albumin/Globulin Ratio 0.9 (1.0-2.2) L 11/17/16 04:35 Lipase 149 U/L (22-51) H 11/15/16 17:52 Vitamin B12 2975 pg/mL (180-914) H 11/16/16 03:48 Folate 13.51 ng/mL (5.90 - >24.8) 11/16/16 03:48 Urine Color DARK YELLOW 11/15/16 18:30 Urine Clarity CLEAR (CLEAR) 11/15/16 18:30 Urine pH 6.0 PH (5.0-7.5) 11/15/16 18:30 Ur Specific [place] <=1.005 (1.002-1.030) 11/15/16 18:30 Urine Protein NEGATIVE mg/dL (NEGATIVE) 11/15/16 18:30 Urine Glucose (UA) NEGATIVE mg/dL (NEGATIVE) 11/15/16 18:30 Urine Ketones NEGATIVE mg/dL (NEGATIVE) 11/15/16 18:30 Urine Occult Blood MODERATE (NEGATIVE) H 11/15/16 18:30 Urine Nitrite POSITIVE (NEGATIVE) H 11/15/16 18:30 Urine Bilirubin NEGATIVE (NEGATIVE) 11/15/16 18:30 Urine Urobilinogen >=8.0 E.U./dL (NORMAL) H 11/15/16 18:30 Ur Leukocyte Esterase LARGE (NEGATIVE) H 11/15/16 18:30 Urine RBC 11-25 /HPF (0-5) H 11/15/16 18:30 Urine WBC >25 /HPF (0-3) H 11/15/16 18:30 Urine WBC Clumps PRESENT 11/15/16 18:30 Ur Squamous Epith Cells FEW Squamous (<= Few) 11/15/16 18:30 Urine Bacteria Many /HPF (None Seen) H 11/15/16 18:30 Urine Casts 0-2 Hyaline Casts /LPF 11/15/16 18:30 Urine Mucus Few Strands 11/15/16 18:30 Ur Microscopic Review INDICATED 11/15/16 18:30 Urine Culture Comments INDICATED 11/15/16 18:30 Urine Opiates Screen NEGATIVE (NEGATIVE) 11/15/16 18:30 Ur Oxycodone Screen NEGATIVE (NEGATIVE) 11/15/16 18:30 Urine Methadone Screen NEGATIVE (NEGATIVE) 11/15/16 18:30 Ur Propoxyphene Screen NEGATIVE (NEGATIVE) 11/15/16 18:30 Ur Barbiturates Screen NEGATIVE (NEGATIVE) 11/15/16 18:30 Ur Tricyclics Screen NEGATIVE (NEGATIVE) 11/15/16 18:30 Ur Phencyclidine Scrn NEGATIVE (NEGATIVE) 11/15/16 18:30 Ur Amphetamine Screen NEGATIVE (NEGATIVE) 11/15/16 18:30 U Methamphetamines Scrn NEGATIVE (NEGATIVE) 11/15/16 18:30 U Benzodiazepines Scrn NEGATIVE (NEGATIVE) 11/15/16 18:30 Urine Cocaine Screen NEGATIVE (NEGATIVE) 11/15/16 18:30 U Cannabinoids Screen POSITIVE (NEGATIVE) H 11/15/16 18:30 Ethyl Alcohol < 5.0 mg/dL 11/15/16 17:52 Blood Type O POSITIVE 11/15/16 17:52 Antibody Screen NEGATIVE 11/15/16 17:52
[2016-11-17] MEDS: LORazepam 100MG/100ML 100 ML IV SCH (17:19)
[2016-11-18] MEDS: MORPHINE 2 MG/ML SYRINGE IVP PRN ×2 (03:38→05:32)
[2016-11-18] MEDS: SODIUM CHLORIDE 0.9% 1,000 ML IV SCH (03:42)
[2016-11-18] MEDS: SODIUM CHLORIDE FLUSH 0.9% 10 ML SYRINGE IVP SCH ×3 (05:33→22:11)
[2016-11-18 06:01] LABS: BASOPHILS # (AUTO) 0.1 10^3/uL (0.0-0.1); EOSINOPHILS # (AUTO) 0.2 10^3/uL (0.0-0.7); EOSINOPHILS % (AUTO) 2.6 %; HCT - HEMATOCRIT 32.4 % (42.0-52.0); LYMPHOCYTES # (AUTO) 1.3 10^3/uL (1.5-3.5); MEAN CORPUSCULAR HEMOGLOBIN 34.6 pg (27.0-31.0); MEAN CORPUSCULAR HGB CONC 34.1 g/dL (32.0-36.0); MEAN CORPUSCULAR VOLUME 101.4 fL (80.0-94.0); MEAN PLATELET VOLUME 7.9 fL (7.4-11.4); MONOCYTES # (AUTO) 0.8 10^3/uL (0.0-1.0); MONOCYTES % (AUTO) 12.4 %; NEUTROPHILS # (AUTO) 4.1 10^3/uL (1.5-6.6); NUCLEATED RED BLOOD CELLS AUTO 0.1 /100WBC; RED BLOOD COUNT 3.19 10^6/uL (4.70-6.10); RED CELL DISTRIBUTION WIDTH 17.6 % (12.0-15.0); UNCORRECTED WHITE BLOOD COUNT 6.3 x10^3/uL; WHITE BLOOD COUNT 6.3 x10^3/uL (4.8-10.8)
[2016-11-18 06:18] LABS: ALBUMIN/GLOBULIN RATIO 0.7 (1.0-2.2); BILIRUBIN,TOTAL 2.1 mg/dL (0.2-1.0); BUN - BLOOD UREA NITROGEN < 5 mg/dL (6-20); CALCIUM 7.8 mg/dL (8.5-10.3); CARBON DIOXIDE - CO2 21 mmol/L (21-32); CHLORIDE 112 mmol/L (101-111); CREATININE 0.5 mg/dL (0.6-1.2); GFR - MDRD 179 (>89); GLUCOSE 97 mg/dL (70-100); MAGNESIUM 1.7 mg/dL (1.7-2.8); PHOSPHORUS 3.3 mg/dL (2.5-4.6); POTASSIUM 3.5 mmol/L (3.5-5.0); SODIUM 139 mmol/L (135-145); TOTAL PROTEIN 5.4 g/dL (6.7-8.2)
[2016-11-18] MEDS: PANTOPRAZOLE 40 MG VIAL IVP SCH ×2 (06:51→15:46)
[2016-11-18] MEDS ORDERED: MAGNESIUM SULFATE 2 GRAM 50 ML IV ONE (07:00)
--- NOTE | 2016-11-18 07:36 | PROVIDER PROGRESS NOTE ---
Assessment/Plan - Problem List (1) GI bleed Qualifiers: GI bleed type/associated pathology: unspecified gastrointestinal hemorrhage type Qualified Code(s): K92.2 - Gastrointestinal hemorrhage, unspecified Assessment/Plan: No further evidence of continued bleeding. He received 2 units of PRBCs. H/H: Will consult Surgery when he is off the vent and decide on whether to do EGD. (2) Pancreatitis Qualifiers: Chronicity: acute Pancreatitis type: alcohol induced Acute pancreatitis complication: unspecified Qualified Code(s): K85.20 - Alcohol induced acute pancreatitis without necrosis or infection Assessment/Plan: no apparent issue. Lipase today pending. He is getting NG feeding started last benedicto .[id number] Will reduce IV fluids. (3) UTI (urinary tract infection) Qualifiers: Urinary tract infection type: site unspecified Hematuria presence: with hematuria Qualified Code(s): N39.0 - Urinary tract infection, site not specified; R31.9 - Hematuria, unspecified Assessment/Plan: He has gomez sensitive E Coli. Rocephin will be continued until tolerates oral or course complete. (4) Acute alcohol intoxication delirium with moderate or severe use disorder Assessment/Plan: Albin's sedation was reduced this am and he is following some simple commands. He is not breathing adequately enough to support ventilation needs. Will continue to wean unless he becomes uncooperative or unable to continue. - Current Meds Current Meds: Current Medications Generic Name Dose Route Start Last Admin Trade Name Freq PRN Reason Stop Dose Admin Carboxymethylcellulose 1 drops 11/16/16 09:45 11/16/16 11:29 Refresh 1% Ophth Drops EACHEYE 1 drops PRN PRN Administration Dry Eye Multivitamins 10 ml/ Thiamine 1,011.2 mls @ 100 mls/hr 11/16/16 09:00 11/17/16 08:30 HCl 100 mg/ Folic Acid 1 mg/ IV 100 mls/hr Sodium Chloride DAILY SHARRI Administration Lorazepam 100 mls @ 0.635 mls/hr 11/15/16 22:00 11/18/16 00:13 Ativan IV 0.03 mg/kg/hr .Q72H SHARRI Titration Protocol 0.01 MG/KG/HR Propofol 100 mls @ 3.81 mls/hr 11/16/16 07:00 11/18/16 00:25 Diprivan IV 20 mcg/kg/min .[id number] SHARRI Titration Protocol 10 MCG/KG/MIN Ceftriaxone Sodium 1 gm/ 100 mls @ 200 mls/hr 11/16/16 09:00 11/17/16 08:30 Sodium Chloride IV 200 mls/hr DAILY SHARRI Administration Sodium Chloride 500 mls @ 20 mls/hr 11/16/16 15:15 11/16/16 15:18 Normal Saline 0.9% IV 20 mls/hr .Q25H PRN Administration Central Line Protocol Sodium Chloride 1,000 mls @ 100 mls/hr 11/17/16 04:00 11/18/16 03:42 Normal Saline 0.9% IV 100 mls/hr .Q10H SHARRI Administration Magnesium Sulfate 50 mls @ 50 mls/hr 11/18/16 07:00 11/18/16 07:01 Magnesium Sulfate IV 11/18/16 07:59 50 mls/hr ONCE ONE Administration Protocol Lorazepam 2 mg 11/15/16 19:38 11/15/16 21:37 Ativan Inj IVP 2 mg Q30M PRN Administration CIWA>8 Protocol Morphine Sulfate 2 mg 11/16/16 10:42 11/18/16 05:32 Morphine IVP 2 mg Q2HR PRN Administration PAIN Pantoprazole Sodium 40 mg 11/16/16 07:00 11/18/16 06:51 Protonix IVP 40 mg BIDAC SHARRI Administration Polyethylene Glycol 17 gm 11/16/16 09:00 11/17/16 08:28 Miralax PO Not Given DAILY SHARRI Sodium Chloride 10 ml 11/15/16 19:38 11/16/16 10:22 Normal Saline Flush 0.9% IVP 10 ml PRN PRN Administration NEEDED PER PROVIDER ORDERS Sodium Chloride 10 ml 11/15/16 22:00 11/18/16 05:33 Normal Saline Flush 0.9% IVP 10 ml Q8HR SHARRI Administration - Lab Result Fish Bone Diagrams: 11/18/16 05:35 11/18/16 05:35 - Additional Planning My Orders: My Active Orders 11/17/16 09:14 Transfuse RBCs Leukoreduced [RC] ONCE RBC, LEUKOREDUCED Urgent 11/18/16 07:00 Magnesium Sulfate 2 Gram [Magnesium Sulfate] 50 ml IV ONCE Potassium Chlor 20 Meq/100 ml [Potassium Chloride] 100 ml IV Q1H 11/19/16 05:00 CBC - COMP BLD CT W/AUTO DIFF [HEME] DAILYLAB COMPREHENSIVE METABOLIC PANEL [CHEM] DAILYLAB MAGNESIUM [CHEM] DAILYLAB PHOSPHORUS [CHEM] DAILYLAB 11/20/16 05:00 CBC - COMP BLD CT W/AUTO DIFF [HEME] DAILYLAB COMPREHENSIVE METABOLIC PANEL [CHEM] DAILYLAB MAGNESIUM [CHEM] DAILYLAB PHOSPHORUS [CHEM] DAILYLAB Subjective - Subjective Patient Reports: Resting Comfortably Nursing Reports: Confused, Sedated Objective Vital Signs: Vital Signs - 24 hr 11/17/16 11/17/16 11/17/16 08:00 09:00 10:00 Temperature 36 C L 36 C L Heart Rate Heart Rate [ 76 77 72 Monitoring electrodes] Respiratory 12 12 13 Rate Blood Pressure 99/65 103/74 89/56 L [Left Brachial artery] O2 Saturation 100 100 100 11/17/16 11/17/16 11/17/16 10:30 11:00 11:45 Temperature 35.8 C L 35.7 C L Heart Rate 66 Heart Rate [ 78 77 Monitoring electrodes] Respiratory 12 12 Rate Blood Pressure 103/64 99/65 [Left Brachial artery] O2 Saturation 100 100 11/17/16 11/17/16 11/17/16 12:00 12:30 13:00 Temperature 36 C L 36.1 C L Heart Rate Heart Rate [ 67 68 68 Monitoring electrodes] Respiratory 12 12 12 Rate Blood Pressure 96/62 96/65 99/70 [Left Brachial artery] O2 Saturation 100 100 100 11/17/16 11/17/16 11/17/16 13:15 13:30 13:59 Temperature 35.5 C L Heart Rate 67 Heart Rate [ 70 72 Monitoring electrodes] Respiratory 13 12 Rate Blood Pressure 112/80 102/66 [Left Brachial artery] O2 Saturation 100 100 11/17/16 11/17/16 11/17/16 15:00 15:15 16:00 Temperature 35.8 C L 35.6 C L 36 C L Heart Rate 65 Heart Rate [ 66 68 71 Monitoring electrodes] Respiratory 13 12 12 Rate Blood Pressure 101/66 97/69 101/68 [Left Brachial artery] O2 Saturation 100 100 100 11/17/16 11/17/16 11/17/16 17:00 17:15 18:00 Temperature Heart Rate 67 Heart Rate [ 79 70 Monitoring electrodes] Respiratory 13 12 Rate Blood Pressure 114/81 H 106/71 [Left Brachial artery] O2 Saturation 100 100 11/17/16 11/17/16 11/17/16 19:00 19:15 20:00 Temperature 36.3 C L Heart Rate 93 Heart Rate [ 79 75 Monitoring electrodes] Respiratory 12 12 Rate Blood Pressure 100/66 105/75 [Left Brachial artery] O2 Saturation 100 100 11/17/16 11/17/16 11/17/16 21:00 21:15 22:00 Temperature Heart Rate 72 Heart Rate [ 72 73 Monitoring electrodes] Respiratory 12 12 Rate Blood Pressure 105/70 105/70 [Left Brachial artery] O2 Saturation 100 100 11/17/16 11/17/16 11/18/16 23:00 23:15 00:00 Temperature Heart Rate 106 H Heart Rate [ 80 74 Monitoring electrodes] Respiratory 12 12 Rate Blood Pressure 108/75 112/71 [Left Brachial artery] O2 Saturation 100 100 11/18/16 11/18/16 11/18/16 01:00 01:15 02:00 Temperature Heart Rate 71 Heart Rate [ 70 71 Monitoring electrodes] Respiratory 12 12 Rate Blood Pressure 97/60 114/70 [Left Brachial artery] O2 Saturation 100 100 11/18/16 11/18/16 11/18/16 03:00 03:15 04:00 Temperature 36.2 C L Heart Rate 72 Heart Rate [ 80 69 Monitoring electrodes] Respiratory 12 12 Rate Blood Pressure 102/64 110/66 [Left Brachial artery] O2 Saturation 100 100 11/18/16 11/18/16 11/18/16 05:00 05:15 06:00 Temperature Heart Rate 91 Heart Rate [ 83 71 Monitoring electrodes] Respiratory 12 12 Rate Blood Pressure 101/66 105/67 [Left Brachial artery] O2 Saturation 100 100 11/18/16 11/18/16 07:00 07:15 Temperature Heart Rate 90 Heart Rate [ 73 Monitoring electrodes] Respiratory 12 Rate Blood Pressure 105/68 [Left Brachial artery] O2 Saturation 100 Oxygen O2 Source Mechanical ventilator I&O (Last 24 Hrs): Intake and Output Totals x24h 11/16/16 11/17/16 11/18/16 23:59 23:59 23:59 Intake Total 5629 3787 1321 Output Total 3207 1535 515 Balance 2422 2252 806 General: Alert HEENT: PERRLA, EOMI Neck: No JVD, No thyromegaly Neuro: Disoriented Cardiovascular: Regular rate, No murmurs Respiratory: Chest non-tender, No respiratory distress, Breath sounds nml, Wheezes Abdomen: Normal bowel sounds, No tenderness Extremities: No clubbing, No cyanosis, No edema, Normal pulses Skin: No rashes, No breakdown - Results Results: Laboratory Results WBC 6.3 x10^3/uL (4.8-10.8) 11/18/16 05:35 RBC 3.19 10^6/uL (4.70-6.10) L 11/18/16 05:35 Hgb 11.0 g/dL (14.0-18.0) L 11/18/16 05:35 Hct 32.4 % (42.0-52.0) L 11/18/16 05:35 MCV 101.4 fL (80.0-94.0) H 11/18/16 05:35 MCH 34.6 pg (27.0-31.0) H 11/18/16 05:35 MCHC 34.1 g/dL (32.0-36.0) 11/18/16 05:35 RDW 17.6 % (12.0-15.0) H 11/18/16 05:35 Plt Count 273 10^3/uL (130-450) 11/18/16 05:35 MPV 7.9 fL (7.4-11.4) 11/18/16 05:35 Neut # 4.1 10^3/uL (1.5-6.6) 11/18/16 05:35 Lymph # 1.3 10^3/uL (1.5-3.5) L 11/18/16 05:35 [place] # 0.8 10^3/uL (0.0-1.0) 11/18/16 05:35 Eos # 0.2 10^3/uL (0.0-0.7) 11/18/16 05:35 Baso # 0.1 10^3/uL (0.0-0.1) 11/18/16 05:35 Absolute Nucleated RBC 0.01 x10^3/uL 11/18/16 05:35 Nucleated RBCs 0.1 /100WBC 11/18/16 05:35 Whole Blood INR 1.0 (0.8-1.2) 11/15/16 19:39 Bld Gas Analysis Time 0550 11/17/16 04:35 Sample Site RIGHT RADIAL 11/17/16 04:35 ABG pH 7.39 (7.35-7.45) 11/17/16 04:35 ABG pCO2 34 mmHg (34-45) 11/17/16 04:35 ABG pO2 117 mmHg (80-100) H 11/17/16 04:35 ABG HCO3 20.5 mmol/L (22.0-26.0) L 11/17/16 04:35 ABG Total CO2 21.5 MMOL/L (21.0-29.0) 11/17/16 04:35 ABG O2 Saturation 98 % (94-98) 11/17/16 04:35 ABG Oximetry Spot Check 100 % 11/17/16 04:35 ABG Base Excess -3.9 mmol/L (-2.0-3.0) L 11/17/16 04:35 Sherwin Test POSITIVE 11/17/16 04:35 Respiration Rate 12 b/min 11/17/16 04:35 O2 Delivery Device VENTILATOR 11/17/16 04:35 Vent Mode SIMV 11/17/16 04:35 FiO2 40.00 11/17/16 04:35 Tidal Volume 450 mL 11/17/16 04:35 PEEP 5 cmH2O 11/17/16 04:35 Pressure Support Vent 10 cmH2O 11/17/16 04:35 Sodium 139 mmol/L (135-145) 11/18/16 05:35 Potassium 3.5 mmol/L (3.5-5.0) 11/18/16 05:35 Chloride 112 mmol/L (101-111) H 11/18/16 05:35 Carbon Dioxide 21 mmol/L (21-32) 11/18/16 05:35 Anion Gap 6.0 (6-13) 11/18/16 05:35 BUN < 5 mg/dL (6-20) L 11/18/16 05:35 Creatinine 0.5 mg/dL (0.6-1.2) L 11/18/16 05:35 Estimated GFR (MDRD) 179 (>89) 11/18/16 05:35 Glucose 97 mg/dL (70-100) 11/18/16 05:35 Calcium 7.8 mg/dL (8.5-10.3) L 11/18/16 05:35 Phosphorus 3.3 mg/dL (2.5-4.6) 11/18/16 05:35 Magnesium 1.7 mg/dL (1.7-2.8) 11/18/16 05:35 Total Bilirubin 2.1 mg/dL (0.2-1.0) H 11/18/16 05:35 AST 81 IU/L (10-42) H 11/18/16 05:35 ALT 69 IU/L (10-60) H 11/18/16 05:35 Alkaline Phosphatase 214 IU/L (42-121) H 11/18/16 05:35 Total Protein 5.4 g/dL (6.7-8.2) L 11/18/16 05:35 Albumin 2.3 g/dL (3.2-5.5) L 11/18/16 05:35 Globulin 3.1 g/dL (2.1-4.2) 11/18/16 05:35 Albumin/Globulin Ratio 0.7 (1.0-2.2) L 11/18/16 05:35 Lipase 149 U/L (22-51) H 11/15/16 17:52 Vitamin B12 2975 pg/mL (180-914) H 11/16/16 03:48 Folate 13.51 ng/mL (5.90 - >24.8) 11/16/16 03:48 Urine Color DARK YELLOW 11/15/16 18:30 Urine Clarity CLEAR (CLEAR) 11/15/16 18:30 Urine pH 6.0 PH (5.0-7.5) 11/15/16 18:30 Ur Specific [place] <=1.005 (1.002-1.030) 11/15/16 18:30 Urine Protein NEGATIVE mg/dL (NEGATIVE) 11/15/16 18:30 Urine Glucose (UA) NEGATIVE mg/dL (NEGATIVE) 11/15/16 18:30 Urine Ketones NEGATIVE mg/dL (NEGATIVE) 11/15/16 18:30 Urine Occult Blood MODERATE (NEGATIVE) H 11/15/16 18:30 Urine Nitrite POSITIVE (NEGATIVE) H 11/15/16 18:30 Urine Bilirubin NEGATIVE (NEGATIVE) 11/15/16 18:30 Urine Urobilinogen >=8.0 E.U./dL (NORMAL) H 11/15/16 18:30 Ur Leukocyte Esterase LARGE (NEGATIVE) H 11/15/16 18:30 Urine RBC 11-25 /HPF (0-5) H 11/15/16 18:30 Urine WBC >25 /HPF (0-3) H 11/15/16 18:30 Urine WBC Clumps PRESENT 11/15/16 18:30 Ur Squamous Epith Cells FEW Squamous (<= Few) 11/15/16 18:30 Urine Bacteria Many /HPF (None Seen) H 11/15/16 18:30 Urine Casts 0-2 Hyaline Casts /LPF 11/15/16 18:30 Urine Mucus Few Strands 11/15/16 18:30 Ur Microscopic Review INDICATED 11/15/16 18:30 Urine Culture Comments INDICATED 11/15/16 18:30 Urine Opiates Screen NEGATIVE (NEGATIVE) 11/15/16 18:30 Ur Oxycodone Screen NEGATIVE (NEGATIVE) 11/15/16 18:30 Urine Methadone Screen NEGATIVE (NEGATIVE) 11/15/16 18:30 Ur Propoxyphene Screen NEGATIVE (NEGATIVE) 11/15/16 18:30 Ur Barbiturates Screen NEGATIVE (NEGATIVE) 11/15/16 18:30 Ur Tricyclics Screen NEGATIVE (NEGATIVE) 11/15/16 18:30 Ur Phencyclidine Scrn NEGATIVE (NEGATIVE) 11/15/16 18:30 Ur Amphetamine Screen NEGATIVE (NEGATIVE) 11/15/16 18:30 U Methamphetamines Scrn NEGATIVE (NEGATIVE) 11/15/16 18:30 U Benzodiazepines Scrn NEGATIVE (NEGATIVE) 11/15/16 18:30 Urine Cocaine Screen NEGATIVE (NEGATIVE) 11/15/16 18:30 U Cannabinoids Screen POSITIVE (NEGATIVE) H 11/15/16 18:30 Ethyl Alcohol < 5.0 mg/dL 11/15/16 17:52 Hepatitis A IgM Ab NON-REACTIVE (NON-REACTIVE) 11/16/16 03:48 Hep Bs Antigen NON-REACTIVE (NON-REACTIVE) 11/16/16 03:48 Hep B Core IgM Ab NON-REACTIVE (NON-REACTIVE) 11/16/16 03:48 Hepatitis C Antibody NON-REACTIVE (NON-REACTIVE) 11/16/16 03:48 Hep C Ab Signal/Cutoff 0.00 (<1.00) 11/16/16 03:48 Blood Type O POSITIVE 11/15/16 17:52 Antibody Screen NEGATIVE 11/15/16 17:52 Crossmatch IS Only See Detail 11/15/16 17:52
[2016-11-18] MEDS: POTASSIUM CHLOR 20 MEQ/100 ML 100 ML IV SCH ×2 (07:40→08:52)
[2016-11-18] MEDS ORDERED: SODIUM CHLORIDE 0.9% 1,000 ML IV SCH (07:58)
[2016-11-18] MEDS ORDERED: NS W/20 MEQ KCL 1,000 ML IV SCH (08:00)
[2016-11-18] MEDS: MULTIVITAMIN 10 ML, THIAMINE INJ 100 MG, FOLIC ACID INJ 1 MG in SODIUM CHLORIDE 0.9% 1,... IV SCH (08:11)
[2016-11-18] MEDS: POLYETHYLENE GLYCOL 3350 17 GM PACKET PO SCH (08:12)
[2016-11-18] MEDS: cefTRIAXone 1 GM in SODIUM CHLORIDE 0.9% MINIBAG 100 ML IV SCH (08:13)
[2016-11-18] MEDS ORDERED: FUROSEMIDE 20 MG/2 ML VIAL IVP ONE (08:30)
[2016-11-18] MEDS ORDERED: SODIUM CHLORIDE INHALATION 3 ML NEB ONE (12:54)
[2016-11-18 15:29] LABS: MAGNESIUM 2.1 mg/dL (1.7-2.8); POTASSIUM 3.6 mmol/L (3.5-5.0)
[2016-11-18] MEDS ORDERED: DEXMEDETOMIDINE 400 MCG/100 ML 100 ML IV PRN (15:33)
[2016-11-18] MEDS: NS W/20 MEQ KCL 1,000 ML IV SCH (18:44)
[2016-11-18] MEDS: SODIUM CHLORIDE FLUSH 0.9% 10 ML SYRINGE IVP PRN (22:12)
[2016-11-19] MEDS: MORPHINE 2 MG/ML SYRINGE IVP PRN ×2 (02:07→20:06)
[2016-11-19 05:22] LABS: BASOPHILS # (AUTO) 0.1 10^3/uL (0.0-0.1); BASOPHILS % (AUTO) 1.3 %; EOSINOPHILS # (AUTO) 0.1 10^3/uL (0.0-0.7); EOSINOPHILS % (AUTO) 2.1 %; HCT - HEMATOCRIT 31.4 % (42.0-52.0); HGB - HEMOGLOBIN 10.4 g/dL (14.0-18.0); LYMPHOCYTES % (AUTO) 24.1 %; MEAN CORPUSCULAR HGB CONC 33.2 g/dL (32.0-36.0); MEAN CORPUSCULAR VOLUME 102.4 fL (80.0-94.0); MEAN PLATELET VOLUME 7.8 fL (7.4-11.4); MONOCYTES # (AUTO) 0.6 10^3/uL (0.0-1.0); MONOCYTES % (AUTO) 14.9 %; NEUTROPHILS # (AUTO) 2.5 10^3/uL (1.5-6.6); NEUTROPHILS % (AUTO) 57.6 %; NUCLEATED RED BLOOD CELLS AUTO 0.1 /100WBC; RED BLOOD COUNT 3.07 10^6/uL (4.70-6.10); RED CELL DISTRIBUTION WIDTH 16.7 % (12.0-15.0); UNCORRECTED WHITE BLOOD COUNT 4.3 x10^3/uL; WHITE BLOOD COUNT 4.3 x10^3/uL (4.8-10.8)
[2016-11-19 05:40] LABS: ALBUMIN/GLOBULIN RATIO 0.7 (1.0-2.2); BILIRUBIN,TOTAL 2.3 mg/dL (0.2-1.0); BUN - BLOOD UREA NITROGEN < 5 mg/dL (6-20); CALCIUM 7.9 mg/dL (8.5-10.3); CARBON DIOXIDE - CO2 23 mmol/L (21-32); CHLORIDE 109 mmol/L (101-111); CREATININE 0.5 mg/dL (0.6-1.2); GFR - MDRD 179 (>89); GLUCOSE 121 mg/dL (70-100); MAGNESIUM 2.1 mg/dL (1.7-2.8); POTASSIUM 3.3 mmol/L (3.5-5.0); SODIUM 138 mmol/L (135-145); TOTAL PROTEIN 5.3 g/dL (6.7-8.2)
[2016-11-19] MEDS: PANTOPRAZOLE 40 MG VIAL IVP SCH ×2 (06:11→16:37)
[2016-11-19] MEDS: POTASSIUM CHLOR 20 MEQ/100 ML 100 ML IV SCH ×2 (06:11→07:22)
[2016-11-19] MEDS: SODIUM CHLORIDE FLUSH 0.9% 10 ML SYRINGE IVP SCH ×3 (06:11→19:36)
[2016-11-19 06:15] LABS: ABG BASE EXCESS -1.3 mmol/L (-2.0-3.0); ABG HCO3 23.1 mmol/L (22.0-26.0); ABG MODE OF VENTILATION CPAP; ABG O2 DEVICE VENTILATOR; ABG OXYGEN SATURATION 97 % (94-98); ABG PCO2 38 mmHg (34-45); ABG PO2 95 mmHg (80-100); ABG PRESSURE SUPPORT VENT 10 cmH2O; ABG SATURATION PULSE OXIMETRY% 99 %; ABG SITE OF DRAW RIGHT RADIAL; ABG TCO2 24.3 MMOL/L (21.0-29.0); ALLEN TEST POSITIVE
[2016-11-19 06:16] LABS: ABG PEAK END EXPIRATORY PRESSU 5 cmH2O
[2016-11-19] MEDS ORDERED: cefTRIAXone 1 GM VIAL ONE (08:30)
[2016-11-19] MEDS: POLYETHYLENE GLYCOL 3350 17 GM PACKET PO SCH (09:41)
[2016-11-19] MEDS: cefTRIAXone 1 GM in SODIUM CHLORIDE 0.9% MINIBAG 100 ML IV SCH (09:41)
[2016-11-19] MEDS: MULTIVITAMIN 10 ML, THIAMINE INJ 100 MG, FOLIC ACID INJ 1 MG in SODIUM CHLORIDE 0.9% 1,... IV SCH (09:41)
--- NOTE | 2016-11-19 09:43 | XRAY Report ---
FRONTAL CHEST: 11/19/2016 CLINICAL INDICATION: Intubated. COMPARISON: 11/16/2016, 11/15/2016. FINDINGS: Frontal view of the chest demonstrates an endotracheal tube terminating approximately 4 cm above the ulysses. A nasogastric tube terminates in the stomach. A right jugular central venous jim ter terminates in the superior vena cava. Elevation of the right hemidiaphragm is stable from previou s. No new consolidation, effusion, or pneumothorax is present. IMPRESSION: STABLE SUPPORT LINES AND TUBES. STABLE ELEVATION OF THE RIGHT HEMIDIAPHRAGM. NO SIGNIFIC ANT INTERVAL CHANGE. JOB #: [id number] EXT JOB #:[id number]
--- NOTE | 2016-11-19 10:51 | PROVIDER PROGRESS NOTE ---
Assessment/Plan - Problem List (1) GI bleed Qualifiers: GI bleed type/associated pathology: unspecified gastrointestinal hemorrhage type Qualified Code(s): K92.2 - Gastrointestinal hemorrhage, unspecified Assessment/Plan: No further BM His H/H stopped slightly. (2) Pancreatitis Qualifiers: Chronicity: acute Pancreatitis type: alcohol induced Acute pancreatitis complication: unspecified Qualified Code(s): K85.20 - Alcohol induced acute pancreatitis without necrosis or infection Assessment/Plan: Nop issue. (3) UTI (urinary tract infection) Qualifiers: Urinary tract infection type: site unspecified Hematuria presence: with hematuria Qualified Code(s): N39.0 - Urinary tract infection, site not specified; R31.9 - Hematuria, unspecified Assessment/Plan: He is on Rocephin (4) Acute alcohol intoxication delirium with moderate or severe use disorder Assessment/Plan: He is still difficult to arouse. His vent parameters are sufficient for extubation Will extubate today Unclear why he is still so sedated - Current Meds Current Meds: Current Medications Generic Name Dose Route Start Last Admin Trade Name Martinq PRN Reason Stop Dose Admin Carboxymethylcellulose 1 drops 11/16/16 09:45 11/16/16 11:29 Refresh 1% Ophth Drops EACHEYE 1 drops PRN PRN Administration Dry Eye Multivitamins 10 ml/ Thiamine 1,011.2 mls @ 100 mls/hr 11/16/16 09:00 11/19/16 09:41 HCl 100 mg/ Folic Acid 1 mg/ IV 100 mls/hr Sodium Chloride DAILY SHARRI Administration Lorazepam 100 mls @ 0.635 mls/hr 11/15/16 22:00 11/18/16 09:29 Ativan IV 0 mg/kg/hr .Q72H SHARRI Titration Protocol 0.01 MG/KG/HR Ceftriaxone Sodium 1 gm/ 100 mls @ 200 mls/hr 11/16/16 09:00 11/19/16 09:41 Sodium Chloride IV 200 mls/hr DAILY SHARRI Administration Sodium Chloride 500 mls @ 20 mls/hr 11/16/16 15:15 11/16/16 15:18 Normal Saline 0.9% IV 20 mls/hr .Q25H PRN Administration Central Line Protocol Potassium Chloride/Sodium Chloride 1,000 mls @ 50 mls/hr 11/18/16 19:00 18:44 Normal Saline 0.9% W/20 Meq Kcl IV 50 mls/hr .Q20H SHARRI Administration Dexmedetomidine/Sodium Chloride 100 mls @ 4.875 mls/hr 11/18/16 15:33 11/19/16 06:50 Precedex Premix IV 0.4 mcg/kg/hr .[id number] PRN Titration Agitation Protocol 0.3 MCG/KG/HR Lorazepam 2 mg 11/15/16 19:38 11/15/16 21:37 Ativan Inj IVP 2 mg Q30M PRN Administration CIWA>8 Protocol Morphine Sulfate 2 mg 11/16/16 10:42 11/19/16 02:07 Morphine IVP 2 mg Q2HR PRN Administration PAIN Pantoprazole Sodium 40 mg 11/16/16 07:00 11/19/16 06:11 Protonix IVP 40 mg BIDAC SHARRI Administration Polyethylene Glycol 17 gm 11/16/16 09:00 11/19/16 09:41 Miralax PO 17 gm DAILY SHARRI Administration Sodium Chloride 10 ml 11/15/16 19:38 11/18/16 22:12 Normal Saline Flush 0.9% IVP 10 ml PRN PRN Administration NEEDED PER PROVIDER ORDERS Sodium Chloride 10 ml 11/15/16 22:00 11/19/16 06:11 Normal Saline Flush 0.9% IVP 10 ml Q8HR SHARRI Administration - Lab Result Fish Bone Diagrams: 11/19/16 05:00 11/19/16 05:00 - Additional Planning My Orders: My Active Orders 11/18/16 15:33 Dexmedetomidine 400 Mcg/100 ml [Precedex Premix] 100 ml IV 0.3 mcg/kg/hr 11/18/16 19:00 Ns W/20 Meq KCl [Normal Saline 0.9% W/20 Meq KCl] 1,000 ml IV 50 mls/hr 11/20/16 05:00 CBC - COMP BLD CT W/AUTO DIFF [HEME] DAILYLAB COMPREHENSIVE METABOLIC PANEL [CHEM] DAILYLAB MAGNESIUM [CHEM] DAILYLAB PHOSPHORUS [CHEM] DAILYLAB Subjective - Subjective Patient Reports: Resting Comfortably Nursing Reports: No Complaints Objective Vital Signs: Vital Signs - 24 hr 11/18/16 11/18/16 11/18/16 11:00 12:00 12:45 Temperature 36.4 C L Heart Rate 105 H Heart Rate [ 88 87 Monitoring electrodes] Respiratory 8 L 11 L Rate Blood Pressure 103/69 96/60 [Left Brachial artery] O2 Saturation 100 100 11/18/16 11/18/16 11/18/16 13:00 14:00 14:45 Temperature Heart Rate 96 Heart Rate [ 108 H 98 Monitoring electrodes] Respiratory 22 13 Rate Blood Pressure 117/71 133/72 H [Left Brachial artery] O2 Saturation 100 100 11/18/16 11/18/16 11/18/16 15:00 16:00 17:00 Temperature 36.2 C L Heart Rate Heart Rate [ 103 H 112 H 90 Monitoring electrodes] Respiratory 15 22 13 Rate Blood Pressure 106/63 107/66 121/79 [Left Brachial artery] O2 Saturation 98 97 11/18/16 11/18/16 11/18/16 17:15 17:17 18:00 Temperature Heart Rate 83 Heart Rate [ 91 88 Monitoring electrodes] Respiratory 14 12 Rate Blood Pressure 125/81 H 100/65 [Left Brachial artery] O2 Saturation 98 98 11/18/16 11/18/16 11/18/16 19:00 19:15 19:33 Temperature 36.6 C Heart Rate 68 Heart Rate [ 70 75 Monitoring electrodes] Respiratory 13 11 L Rate Blood Pressure 106/65 111/73 [Left Brachial artery] O2 Saturation 97 98 11/18/16 11/18/16 11/18/16 19:42 21:00 21:15 Temperature Heart Rate 61 Heart Rate [ 68 64 Monitoring electrodes] Respiratory 10 L 12 Rate Blood Pressure 112/72 107/65 [Left Brachial artery] O2 Saturation 99 99 11/18/16 11/18/16 11/18/16 22:00 23:00 23:15 Temperature Heart Rate 65 Heart Rate [ 84 68 Monitoring electrodes] Respiratory 13 12 Rate Blood Pressure 109/75 88/54 L [Left Brachial artery] O2 Saturation 100 99 11/19/16 11/19/16 11/19/16 00:00 01:00 01:15 Temperature 36.6 C Heart Rate 60 Heart Rate [ 78 56 L Monitoring electrodes] Respiratory 13 14 Rate Blood Pressure 106/65 100/62 [Left Brachial artery] O2 Saturation 99 98 11/19/16 11/19/16 11/19/16 02:00 03:00 03:15 Temperature 36.4 C L Heart Rate 53 L Heart Rate [ 67 53 L Monitoring electrodes] Respiratory 13 13 Rate Blood Pressure 134/81 H 115/72 [Left Brachial artery] O2 Saturation 99 98 11/19/16 11/19/16 11/19/16 04:00 05:00 05:15 Temperature 36.4 C L Heart Rate 52 L Heart Rate [ 52 L 49 L Monitoring electrodes] Respiratory 13 9 L Rate Blood Pressure 118/73 120/73 [Left Brachial artery] O2 Saturation 98 99 11/19/16 11/19/16 11/19/16 06:00 07:00 07:15 Temperature Heart Rate 66 Heart Rate [ 74 72 Monitoring electrodes] Respiratory 13 13 Rate Blood Pressure 97/63 96/61 [Left Brachial artery] O2 Saturation 100 98 11/19/16 11/19/16 11/19/16 09:00 09:36 10:00 Temperature 37 C Heart Rate 90 Heart Rate [ 86 75 Monitoring electrodes] Respiratory 19 18 Rate Blood Pressure 113/78 111/79 [Left Brachial artery] O2 Saturation 99 99 Oxygen O2 Source Mechanical ventilator I&O (Last 24 Hrs): Intake and Output Totals x24h 11/17/16 11/18/16 11/19/16 23:59 23:59 23:59 Intake Total 3787 3307 1548 Output Total 1535 7482 748 Balance 2252 635 800 HEENT: PERRLA, EOMI Neck: No JVD, No thyromegaly Neuro: Other (Pt is sedated.) Respiratory: No respiratory distress, Breath sounds nml Abdomen: Normal bowel sounds, Soft Extremities: No clubbing, No cyanosis, No edema, Normal pulses Skin: No breakdown - Results Results: Laboratory Results WBC 4.3 x10^3/uL (4.8-10.8) L 11/19/16 05:00 RBC 3.07 10^6/uL (4.70-6.10) L 11/19/16 05:00 Hgb 10.4 g/dL (14.0-18.0) L 11/19/16 05:00 Hct 31.4 % (42.0-52.0) L 11/19/16 05:00 MCV 102.4 fL (80.0-94.0) H 11/19/16 05:00 MCH 34.0 pg (27.0-31.0) H 11/19/16 05:00 MCHC 33.2 g/dL (32.0-36.0) 11/19/16 05:00 RDW 16.7 % (12.0-15.0) H 11/19/16 05:00 Plt Count 282 10^3/uL (130-450) 11/19/16 05:00 MPV 7.8 fL (7.4-11.4) 11/19/16 05:00 Neut # 2.5 10^3/uL (1.5-6.6) 11/19/16 05:00 Lymph # 1.0 10^3/uL (1.5-3.5) L 11/19/16 05:00 [place] # 0.6 10^3/uL (0.0-1.0) 11/19/16 05:00 Eos # 0.1 10^3/uL (0.0-0.7) 11/19/16 05:00 Baso # 0.1 10^3/uL (0.0-0.1) 11/19/16 05:00 Absolute Nucleated RBC 0.00 x10^3/uL 11/19/16 05:00 Nucleated RBCs 0.1 /100WBC 11/19/16 05:00 Whole Blood INR 1.0 (0.8-1.2) 11/15/16 19:39 Bld Gas Analysis Time 0614 11/19/16 06:05 Sample Site RIGHT RADIAL 11/19/16 06:05 ABG pH 7.40 (7.35-7.45) 11/19/16 06:05 ABG pCO2 38 mmHg (34-45) 11/19/16 06:05 ABG pO2 95 mmHg (80-100) 11/19/16 06:05 ABG HCO3 23.1 mmol/L (22.0-26.0) 11/19/16 06:05 ABG Total CO2 24.3 MMOL/L (21.0-29.0) 11/19/16 06:05 ABG O2 Saturation 97 % (94-98) 11/19/16 06:05 ABG Oximetry Spot Check 99 % 11/19/16 06:05 ABG Base Excess -1.3 mmol/L (-2.0-3.0) 11/19/16 06:05 Sherwin Test POSITIVE 11/19/16 06:05 Respiration Rate 12 b/min 11/17/16 04:35 O2 Delivery Device VENTILATOR 11/19/16 06:05 Vent Mode CPAP 11/19/16 06:05 FiO2 30.00 11/19/16 06:05 Tidal Volume 450 mL 11/19/16 06:05 PEEP 5 cmH2O 11/19/16 06:05 Pressure Support Vent 10 cmH2O 11/19/16 06:05 Sodium 138 mmol/L (135-145) 11/19/16 05:00 Potassium 3.3 mmol/L (3.5-5.0) L 11/19/16 05:00 Chloride 109 mmol/L (101-111) 11/19/16 05:00 Carbon Dioxide 23 mmol/L (21-32) 11/19/16 05:00 Anion Gap 6.0 (6-13) 11/19/16 05:00 BUN < 5 mg/dL (6-20) L 11/19/16 05:00 Creatinine 0.5 mg/dL (0.6-1.2) L 11/19/16 05:00 Estimated GFR (MDRD) 179 (>89) 11/19/16 05:00 Glucose 121 mg/dL (70-100) H 11/19/16 05:00 Calcium 7.9 mg/dL (8.5-10.3) L 11/19/16 05:00 Phosphorus 4.0 mg/dL (2.5-4.6) 11/19/16 05:00 Magnesium 2.1 mg/dL (1.7-2.8) 11/19/16 05:00 Total Bilirubin 2.3 mg/dL (0.2-1.0) H 11/19/16 05:00 AST 95 IU/L (10-42) H 11/19/16 05:00 ALT 67 IU/L (10-60) H 11/19/16 05:00 Alkaline Phosphatase 236 IU/L (42-121) H 11/19/16 05:00 Total Protein 5.3 g/dL (6.7-8.2) L 11/19/16 05:00 Albumin 2.2 g/dL (3.2-5.5) L 11/19/16 05:00 Globulin 3.1 g/dL (2.1-4.2) 11/19/16 05:00 Albumin/Globulin Ratio 0.7 (1.0-2.2) L 11/19/16 05:00 Lipase 149 U/L (22-51) H 11/15/16 17:52 Vitamin B12 2975 pg/mL (180-914) H 11/16/16 03:48 Folate 13.51 ng/mL (5.90 - >24.8) 11/16/16 03:48 Urine Color DARK YELLOW 11/15/16 18:30 Urine Clarity CLEAR (CLEAR) 11/15/16 18:30 Urine pH 6.0 PH (5.0-7.5) 11/15/16 18:30 Ur Specific [place] <=1.005 (1.002-1.030) 11/15/16 18:30 Urine Protein NEGATIVE mg/dL (NEGATIVE) 11/15/16 18:30 Urine Glucose (UA) NEGATIVE mg/dL (NEGATIVE) 11/15/16 18:30 Urine Ketones NEGATIVE mg/dL (NEGATIVE) 11/15/16 18:30 Urine Occult Blood MODERATE (NEGATIVE) H 11/15/16 18:30 Urine Nitrite POSITIVE (NEGATIVE) H 11/15/16 18:30 Urine Bilirubin NEGATIVE (NEGATIVE) 11/15/16 18:30 Urine Urobilinogen >=8.0 E.U./dL (NORMAL) H 11/15/16 18:30 Ur Leukocyte Esterase LARGE (NEGATIVE) H 11/15/16 18:30 Urine RBC 11-25 /HPF (0-5) H 11/15/16 18:30 Urine WBC >25 /HPF (0-3) H 11/15/16 18:30 Urine WBC Clumps PRESENT 11/15/16 18:30 Ur Squamous Epith Cells FEW Squamous (<= Few) 11/15/16 18:30 Urine Bacteria Many /HPF (None Seen) H 11/15/16 18:30 Urine Casts 0-2 Hyaline Casts /LPF 11/15/16 18:30 Urine Mucus Few Strands 11/15/16 18:30 Ur Microscopic Review INDICATED 11/15/16 18:30 Urine Culture Comments INDICATED 11/15/16 18:30 Urine Opiates Screen NEGATIVE (NEGATIVE) 11/15/16 18:30 Ur Oxycodone Screen NEGATIVE (NEGATIVE) 11/15/16 18:30 Urine Methadone Screen NEGATIVE (NEGATIVE) 11/15/16 18:30 Ur Propoxyphene Screen NEGATIVE (NEGATIVE) 11/15/16 18:30 Ur Barbiturates Screen NEGATIVE (NEGATIVE) 11/15/16 18:30 Ur Tricyclics Screen NEGATIVE (NEGATIVE) 11/15/16 18:30 Ur Phencyclidine Scrn NEGATIVE (NEGATIVE) 11/15/16 18:30 Ur Amphetamine Screen NEGATIVE (NEGATIVE) 11/15/16 18:30 U Methamphetamines Scrn NEGATIVE (NEGATIVE) 11/15/16 18:30 U Benzodiazepines Scrn NEGATIVE (NEGATIVE) 11/15/16 18:30 Urine Cocaine Screen NEGATIVE (NEGATIVE) 11/15/16 18:30 U Cannabinoids Screen POSITIVE (NEGATIVE) H 11/15/16 18:30 Ethyl Alcohol < 5.0 mg/dL 11/15/16 17:52 Hepatitis A IgM Ab NON-REACTIVE (NON-REACTIVE) 11/16/16 03:48 Hep Bs Antigen NON-REACTIVE (NON-REACTIVE) 11/16/16 03:48 Hep B Core IgM Ab NON-REACTIVE (NON-REACTIVE) 11/16/16 03:48 Hepatitis C Antibody NON-REACTIVE (NON-REACTIVE) 11/16/16 03:48 Hep C Ab Signal/Cutoff 0.00 (<1.00) 11/16/16 03:48 Blood Type O POSITIVE 11/15/16 17:52 Antibody Screen NEGATIVE 11/15/16 17:52 Crossmatch IS Only See Detail 11/15/16 17:52
[2016-11-19] MEDS ORDERED: MIDAZOLAM 2 MG/2 ML VIAL IVP ONE (11:08)
--- NOTE | 2016-11-19 13:05 | CT Report ---
CT OF THE BRAIN WITHOUT CONTRAST: 11/19/2016 CLINICAL INDICATION: Prolonged coma. TECHNIQUE: Axial CT images of the brain were obtained without contrast. No previous CT is available f or comparison. FINDINGS: The ventricles and sulci demonstrate mild symmetric enlargement, compatible with atrophy. There is no evidence of hemorrhage, mass effect, or midline shift. The basilar cisterns are patent. T here is sphenoid, ethmoid, and maxillary sinus disease present. No calvarial fracture is seen. IMPRESSION: SINUS DISEASE. ATROPHY. In accordance with CT protocol optimization, one or more of the following dose reduction techniques w ere utilized for this exam: automated exposure control, adjustment of mA and/or KV based on patient size, or use of iterative reconstructive technique. JOB #: [id number] EXT JOB #:[id number]
[2016-11-19] MEDS: NS W/20 MEQ KCL 1,000 ML IV SCH (19:36)
[2016-11-19] MEDS ORDERED: MORPHINE 2 MG/ML SYRINGE ONE (21:14)
[2016-11-20] MEDS: MORPHINE 2 MG/ML SYRINGE IVP PRN ×3 (01:14→19:32)
[2016-11-20 05:16] LABS: BASOPHILS # (AUTO) 0.1 10^3/uL (0.0-0.1); EOSINOPHILS # (AUTO) 0.1 10^3/uL (0.0-0.7); EOSINOPHILS % (AUTO) 1.7 %; HCT - HEMATOCRIT 31.1 % (42.0-52.0); HGB - HEMOGLOBIN 10.5 g/dL (14.0-18.0); LYMPHOCYTES % (AUTO) 19.9 %; MEAN CORPUSCULAR HEMOGLOBIN 34.2 pg (27.0-31.0); MEAN CORPUSCULAR HGB CONC 33.7 g/dL (32.0-36.0); MEAN CORPUSCULAR VOLUME 101.8 fL (80.0-94.0); MEAN PLATELET VOLUME 7.3 fL (7.4-11.4); MONOCYTES # (AUTO) 0.7 10^3/uL (0.0-1.0); MONOCYTES % (AUTO) 13.5 %; NEUTROPHILS # (AUTO) 3.1 10^3/uL (1.5-6.6); NEUTROPHILS % (AUTO) 62.9 %; RED BLOOD COUNT 3.05 10^6/uL (4.70-6.10); RED CELL DISTRIBUTION WIDTH 15.8 % (12.0-15.0)
[2016-11-20 05:44] LABS: ALBUMIN/GLOBULIN RATIO 0.7 (1.0-2.2); BILIRUBIN,TOTAL 1.9 mg/dL (0.2-1.0); BUN - BLOOD UREA NITROGEN < 5 mg/dL (6-20); CALCIUM 8.3 mg/dL (8.5-10.3); CARBON DIOXIDE - CO2 27 mmol/L (21-32); CHLORIDE 107 mmol/L (101-111); CREATININE 0.5 mg/dL (0.6-1.2); GFR - MDRD 179 (>89); GLUCOSE 99 mg/dL (70-100); MAGNESIUM 1.8 mg/dL (1.7-2.8); POTASSIUM 3.6 mmol/L (3.5-5.0); SODIUM 141 mmol/L (135-145); TOTAL PROTEIN 5.5 g/dL (6.7-8.2)
[2016-11-20] MEDS: SODIUM CHLORIDE FLUSH 0.9% 10 ML SYRINGE IVP SCH ×3 (05:56→15:38)
[2016-11-20] MEDS: PANTOPRAZOLE 40 MG VIAL IVP SCH ×2 (06:03→15:36)
[2016-11-20 06:05] LABS: THYROID STIMULATING HORMONE 1.28 uIU/mL (0.34-5.60)
[2016-11-20] MEDS: LORazepam 2 MG/ML SYRINGE IVP PRN (06:18)
[2016-11-20] MEDS: POLYETHYLENE GLYCOL 3350 17 GM PACKET PO SCH (08:49)
[2016-11-20] MEDS: cefTRIAXone 1 GM in SODIUM CHLORIDE 0.9% MINIBAG 100 ML IV SCH (09:10)
[2016-11-20] MEDS: MULTIVITAMIN 10 ML, THIAMINE INJ 100 MG, FOLIC ACID INJ 1 MG in SODIUM CHLORIDE 0.9% 1,... IV SCH (09:34)
--- NOTE | 2016-11-20 19:11 | PROVIDER PROGRESS NOTE ---
Assessment/Plan - Problem List (1) Acute alcohol intoxication delirium with moderate or severe use disorder Assessment/Plan: Pt now awake and extubated, ng tube, asking for a full diet. (2) Alcohol withdrawal Qualifiers: Complication of substance-induced condition: with delirium Qualified Code(s ): F10.231 - Alcohol dependence with withdrawal delirium Assessment/Plan: Pt on sedatives. Pt is lethargic but communicative. Will continue weaning of meds for DT. VS stable and will transfer out of ICU. (3) Pancreatitis Qualifiers: Chronicity: acute Pancreatitis type: alcohol induced Acute pancreatitis complication: unspecified Assessment/Plan: Pt has no abd pain and askng for advancing diet. Swallowing eval done and Pt passed eval. Will adjust diet. - Current Meds Current Meds: Current Medications Generic Name Dose Route Start Last Admin Trade Name Freq PRN Reason Stop Dose Admin Carboxymethylcellulose 1 drops 11/16/16 09:45 11/16/16 11:29 Refresh 1% Ophth Drops EACHEYE 1 drops PRN PRN Administration Dry Eye Multivitamins 10 ml/ Thiamine 1,011.2 mls @ 100 mls/hr 11/16/16 09:00 11/20/16 09:34 HCl 100 mg/ Folic Acid 1 mg/ IV 100 mls/hr Sodium Chloride DAILY SHARRI Administration Lorazepam 100 mls @ 0.635 mls/hr 11/15/16 22:00 11/18/16 09:29 Ativan IV 0 mg/kg/hr .Q72H SHARRI Titration Protocol 0.01 MG/KG/HR Ceftriaxone Sodium 1 gm/ 100 mls @ 200 mls/hr 11/16/16 09:00 11/20/16 09:10 Sodium Chloride IV 200 mls/hr DAILY SHARRI Administration Sodium Chloride 500 mls @ 20 mls/hr 11/16/16 15:15 11/16/16 15:18 Normal Saline 0.9% IV 20 mls/hr .Q25H PRN Administration Central Line Protocol Potassium Chloride/Sodium Chloride 1,000 mls @ 50 mls/hr 11/18/16 19:00 19:36 Normal Saline 0.9% W/20 Meq Kcl IV 50 mls/hr .Q20H SHARRI Administration Dexmedetomidine/Sodium Chloride 100 mls @ 5.325 mls/hr 11/18/16 15:33 11/19/16 06:50 Precedex Premix IV 0.4 mcg/kg/hr .[id number] PRN Titration Agitation Protocol 0.3 MCG/KG/HR Lorazepam 2 mg 11/15/16 19:38 11/20/16 06:18 Ativan Inj IVP 1 mg Q30M PRN Administration CIWA>8 Protocol Morphine Sulfate 2 mg 11/16/16 10:42 11/20/16 10:24 Morphine IVP 2 mg Q2HR PRN Administration PAIN Pantoprazole Sodium 40 mg 11/16/16 07:00 11/20/16 15:36 Protonix IVP 40 mg BIDAC SHARRI Administration Polyethylene Glycol 17 gm 11/16/16 09:00 11/20/16 08:49 Miralax PO Not Given DAILY SHARRI Sodium Chloride 10 ml 11/15/16 19:38 11/18/16 22:12 Normal Saline Flush 0.9% IVP 10 ml PRN PRN Administration NEEDED PER PROVIDER ORDERS Sodium Chloride 10 ml 11/15/16 22:00 11/20/16 15:38 Normal Saline Flush 0.9% IVP 10 ml Q8HR SHARRI Administration - Lab Result Lab results reviewed: Yes Fish Bone Diagrams: 11/20/16 05:05 11/20/16 05:05 - Additional Planning My Orders: My Active Orders 11/20/16 Dinner Dysphagia Mechanically Altered Diet [DIET] Objective Vital Signs: Vital Signs - 24 hr 11/19/16 11/19/16 11/19/16 19:55 21:00 22:00 Temperature 36.7 C Heart Rate [ 99 83 108 H Monitoring electrodes] Respiratory 19 16 17 Rate Blood Pressure 128/97 H 123/75 129/91 H [Left Brachial artery] Blood Pressure [Right Brachial artery] O2 Saturation 100 99 99 11/19/16 11/20/16 11/20/16 23:00 00:00 01:00 Temperature 36.8 C Heart Rate [ 80 93 92 Monitoring electrodes] Respiratory 14 17 16 Rate Blood Pressure 112/80 143/95 H 132/93 H [Left Brachial artery] Blood Pressure [Right Brachial artery] O2 Saturation 100 100 100 11/20/16 11/20/16 11/20/16 01:58 03:00 04:00 Temperature 36.5 C Heart Rate [ 74 73 93 Monitoring electrodes] Respiratory 13 15 18 Rate Blood Pressure 135/88 H 123/83 H 137/94 H [Left Brachial artery] Blood Pressure [Right Brachial artery] O2 Saturation 100 100 100 11/20/16 11/20/16 11/20/16 05:00 06:00 06:54 Temperature Heart Rate [ 89 83 81 Monitoring electrodes] Respiratory 16 18 20 Rate Blood Pressure 130/86 H 119/85 H 137/90 H [Left Brachial artery] Blood Pressure [Right Brachial artery] O2 Saturation 99 98 100 11/20/16 11/20/16 11/20/16 07:33 10:00 11:00 Temperature 36.7 C 37.4 C Heart Rate [ 78 83 88 Monitoring electrodes] Respiratory 16 20 18 Rate Blood Pressure 132/85 H 141/99 H 142/96 H [Left Brachial artery] Blood Pressure [Right Brachial artery] O2 Saturation 96 99 100 11/20/16 11/20/16 11/20/16 11:37 13:00 13:42 Temperature 36.4 C L 36.4 C L Heart Rate [ 84 70 84 Monitoring electrodes] Respiratory 19 22 19 Rate Blood Pressure 138/98 H 147/92 H 134/102 H [Left Brachial artery] Blood Pressure [Right Brachial artery] O2 Saturation 100 97 99 11/20/16 11/20/16 11/20/16 14:00 14:51 16:00 Temperature 36.8 C Heart Rate [ 90 87 Monitoring electrodes] Respiratory 16 19 Rate Blood Pressure 151/97 H 125/88 H 113/76 [Left Brachial artery] Blood Pressure [Right Brachial artery] O2 Saturation 100 100 11/20/16 11/20/16 16:59 18:00 Temperature Heart Rate [ 61 121 H Monitoring electrodes] Respiratory 12 16 Rate Blood Pressure 120/80 [Left Brachial artery] Blood Pressure 144/93 H [Right Brachial artery] O2 Saturation 100 98 Oxygen O2 Source Nasal cannula I&O (Last 24 Hrs): Intake and Output Totals x24h 11/18/16 11/19/16 11/20/16 23:59 23:59 23:59 Intake Total 3307 7389 1924 Output Total 9817 3553 3070 Balance 950 -4504 -1146 - Results Results: Laboratory Results WBC 5.0 x10^3/uL (4.8-10.8) 11/20/16 05:05 RBC 3.05 10^6/uL (4.70-6.10) L 11/20/16 05:05 Hgb 10.5 g/dL (14.0-18.0) L 11/20/16 05:05 Hct 31.1 % (42.0-52.0) L 11/20/16 05:05 MCV 101.8 fL (80.0-94.0) H 11/20/16 05:05 MCH 34.2 pg (27.0-31.0) H 11/20/16 05:05 MCHC 33.7 g/dL (32.0-36.0) 11/20/16 05:05 RDW 15.8 % (12.0-15.0) H 11/20/16 05:05 Plt Count 342 10^3/uL (130-450) 11/20/16 05:05 MPV 7.3 fL (7.4-11.4) L 11/20/16 05:05 Neut # 3.1 10^3/uL (1.5-6.6) 11/20/16 05:05 Lymph # 1.0 10^3/uL (1.5-3.5) L 11/20/16 05:05 [place] # 0.7 10^3/uL (0.0-1.0) 11/20/16 05:05 Eos # 0.1 10^3/uL (0.0-0.7) 11/20/16 05:05 Baso # 0.1 10^3/uL (0.0-0.1) 11/20/16 05:05 Absolute Nucleated RBC 0.00 x10^3/uL 11/20/16 05:05 Nucleated RBCs 0.0 /100WBC 11/20/16 05:05 Whole Blood INR 1.0 (0.8-1.2) 11/15/16 19:39 Bld Gas Analysis Time 0614 11/19/16 06:05 Sample Site RIGHT RADIAL 11/19/16 06:05 ABG pH 7.40 (7.35-7.45) 11/19/16 06:05 ABG pCO2 38 mmHg (34-45) 11/19/16 06:05 ABG pO2 95 mmHg (80-100) 11/19/16 06:05 ABG HCO3 23.1 mmol/L (22.0-26.0) 11/19/16 06:05 ABG Total CO2 24.3 MMOL/L (21.0-29.0) 11/19/16 06:05 ABG O2 Saturation 97 % (94-98) 11/19/16 06:05 ABG Oximetry Spot Check 99 % 11/19/16 06:05 ABG Base Excess -1.3 mmol/L (-2.0-3.0) 11/19/16 06:05 Sherwin Test POSITIVE 11/19/16 06:05 Respiration Rate 12 b/min 11/17/16 04:35 O2 Delivery Device VENTILATOR 11/19/16 06:05 Vent Mode CPAP 11/19/16 06:05 FiO2 30.00 11/19/16 06:05 Tidal Volume 450 mL 11/19/16 06:05 PEEP 5 cmH2O 11/19/16 06:05 Pressure Support Vent 10 cmH2O 11/19/16 06:05 Sodium 141 mmol/L (135-145) 11/20/16 05:05 Potassium 3.6 mmol/L (3.5-5.0) 11/20/16 05:05 Chloride 107 mmol/L (101-111) 11/20/16 05:05 Carbon Dioxide 27 mmol/L (21-32) 11/20/16 05:05 Anion Gap 7.0 (6-13) 11/20/16 05:05 BUN < 5 mg/dL (6-20) L 11/20/16 05:05 Creatinine 0.5 mg/dL (0.6-1.2) L 11/20/16 05:05 Estimated GFR (MDRD) 179 (>89) 11/20/16 05:05 Glucose 99 mg/dL (70-100) 11/20/16 05:05 Calcium 8.3 mg/dL (8.5-10.3) L 11/20/16 05:05 Phosphorus 4.0 mg/dL (2.5-4.6) 11/20/16 05:05 Magnesium 1.8 mg/dL (1.7-2.8) 11/20/16 05:05 Total Bilirubin 1.9 mg/dL (0.2-1.0) H 11/20/16 05:05 AST 96 IU/L (10-42) H 11/20/16 05:05 ALT 68 IU/L (10-60) H 11/20/16 05:05 Alkaline Phosphatase 218 IU/L (42-121) H 11/20/16 05:05 Ammonia 9.0 umol/L (7-35) 11/20/16 05:05 Total Protein 5.5 g/dL (6.7-8.2) L 11/20/16 05:05 Albumin 2.3 g/dL (3.2-5.5) L 11/20/16 05:05 Globulin 3.2 g/dL (2.1-4.2) 11/20/16 05:05 Albumin/Globulin Ratio 0.7 (1.0-2.2) L 11/20/16 05:05 Lipase 149 U/L (22-51) H 11/15/16 17:52 Vitamin B12 2975 pg/mL (180-914) H 11/16/16 03:48 Folate 13.51 ng/mL (5.90 - >24.8) 11/16/16 03:48 TSH 1.28 uIU/mL (0.34-5.60) 11/20/16 05:05 Free T4 1.00 ng/dL (0.58-1.64) 11/20/16 05:05 Urine Color DARK YELLOW 11/15/16 18:30 Urine Clarity CLEAR (CLEAR) 11/15/16 18:30 Urine pH 6.0 PH (5.0-7.5) 11/15/16 18:30 Ur Specific [place] <=1.005 (1.002-1.030) 11/15/16 18:30 Urine Protein NEGATIVE mg/dL (NEGATIVE) 11/15/16 18:30 Urine Glucose (UA) NEGATIVE mg/dL (NEGATIVE) 11/15/16 18:30 Urine Ketones NEGATIVE mg/dL (NEGATIVE) 11/15/16 18:30 Urine Occult Blood MODERATE (NEGATIVE) H 11/15/16 18:30 Urine Nitrite POSITIVE (NEGATIVE) H 11/15/16 18:30 Urine Bilirubin NEGATIVE (NEGATIVE) 11/15/16 18:30 Urine Urobilinogen >=8.0 E.U./dL (NORMAL) H 11/15/16 18:30 Ur Leukocyte Esterase LARGE (NEGATIVE) H 11/15/16 18:30 Urine RBC 11-25 /HPF (0-5) H 11/15/16 18:30 Urine WBC >25 /HPF (0-3) H 11/15/16 18:30 Urine WBC Clumps PRESENT 11/15/16 18:30 Ur Squamous Epith Cells FEW Squamous (<= Few) 11/15/16 18:30 Urine Bacteria Many /HPF (None Seen) H 11/15/16 18:30 Urine Casts 0-2 Hyaline Casts /LPF 11/15/16 18:30 Urine Mucus Few Strands 11/15/16 18:30 Ur Microscopic Review INDICATED 11/15/16 18:30 Urine Culture Comments INDICATED 11/15/16 18:30 Urine Opiates Screen NEGATIVE (NEGATIVE) 11/15/16 18:30 Ur Oxycodone Screen NEGATIVE (NEGATIVE) 11/15/16 18:30 Urine Methadone Screen NEGATIVE (NEGATIVE) 11/15/16 18:30 Ur Propoxyphene Screen NEGATIVE (NEGATIVE) 11/15/16 18:30 Ur Barbiturates Screen NEGATIVE (NEGATIVE) 11/15/16 18:30 Ur Tricyclics Screen NEGATIVE (NEGATIVE) 11/15/16 18:30 Ur Phencyclidine Scrn NEGATIVE (NEGATIVE) 11/15/16 18:30 Ur Amphetamine Screen NEGATIVE (NEGATIVE) 11/15/16 18:30 U Methamphetamines Scrn NEGATIVE (NEGATIVE) 11/15/16 18:30 U Benzodiazepines Scrn NEGATIVE (NEGATIVE) 11/15/16 18:30 Urine Cocaine Screen NEGATIVE (NEGATIVE) 11/15/16 18:30 U Cannabinoids Screen POSITIVE (NEGATIVE) H 11/15/16 18:30 Ethyl Alcohol < 5.0 mg/dL 11/15/16 17:52 Hepatitis A IgM Ab NON-REACTIVE (NON-REACTIVE) 11/16/16 03:48 Hep Bs Antigen NON-REACTIVE (NON-REACTIVE) 11/16/16 03:48 Hep B Core IgM Ab NON-REACTIVE (NON-REACTIVE) 11/16/16 03:48 Hepatitis C Antibody NON-REACTIVE (NON-REACTIVE) 11/16/16 03:48 Hep C Ab Signal/Cutoff 0.00 (<1.00) 11/16/16 03:48 Blood Type O POSITIVE 11/15/16 17:52 Antibody Screen NEGATIVE 11/15/16 17:52 Crossmatch IS Only See Detail 11/15/16 17:52
[2016-11-20] MEDS: SODIUM CHLORIDE FLUSH 0.9% 10 ML SYRINGE IVP PRN (19:34)
[2016-11-20] MEDS: NS W/20 MEQ KCL 1,000 ML IV SCH (19:36)
[2016-11-21 04:47] LABS: BASOPHILS % (AUTO) 0.6 %; EOSINOPHILS # (AUTO) 0.1 10^3/uL (0.0-0.7); EOSINOPHILS % (AUTO) 2.4 %; HCT - HEMATOCRIT 29.6 % (42.0-52.0); HGB - HEMOGLOBIN 10.1 g/dL (14.0-18.0); LYMPHOCYTES # (AUTO) 1.1 10^3/uL (1.5-3.5); LYMPHOCYTES % (AUTO) 27.2 %; MEAN CORPUSCULAR HEMOGLOBIN 34.3 pg (27.0-31.0); MEAN CORPUSCULAR HGB CONC 34.1 g/dL (32.0-36.0); MEAN CORPUSCULAR VOLUME 100.7 fL (80.0-94.0); MEAN PLATELET VOLUME 7.2 fL (7.4-11.4); MONOCYTES # (AUTO) 0.6 10^3/uL (0.0-1.0); MONOCYTES % (AUTO) 15.6 %; NEUTROPHILS # (AUTO) 2.2 10^3/uL (1.5-6.6); NEUTROPHILS % (AUTO) 54.2 %; RED BLOOD COUNT 2.94 10^6/uL (4.70-6.10); RED CELL DISTRIBUTION WIDTH 15.9 % (12.0-15.0)
[2016-11-21 04:59] LABS: ALBUMIN/GLOBULIN RATIO 0.7 (1.0-2.2); BILIRUBIN,TOTAL 1.7 mg/dL (0.2-1.0); BUN - BLOOD UREA NITROGEN < 5 mg/dL (6-20); CALCIUM 8.6 mg/dL (8.5-10.3); CARBON DIOXIDE - CO2 29 mmol/L (21-32); CHLORIDE 105 mmol/L (101-111); CREATININE 0.5 mg/dL (0.6-1.2); GFR - MDRD 179 (>89); GLUCOSE 112 mg/dL (70-100); POTASSIUM 3.6 mmol/L (3.5-5.0); SODIUM 140 mmol/L (135-145); TOTAL PROTEIN 5.4 g/dL (6.7-8.2)
[2016-11-21] MEDS: PANTOPRAZOLE 40 MG VIAL IVP SCH ×2 (06:12→18:02)
[2016-11-21] MEDS: SODIUM CHLORIDE FLUSH 0.9% 10 ML SYRINGE IVP SCH ×3 (06:13→21:09)
[2016-11-21] MEDS: MULTIVITAMIN 10 ML, THIAMINE INJ 100 MG, FOLIC ACID INJ 1 MG in SODIUM CHLORIDE 0.9% 1,... IV SCH (09:03)
[2016-11-21] MEDS: POLYETHYLENE GLYCOL 3350 17 GM PACKET PO SCH (09:03)
[2016-11-21] MEDS: cefTRIAXone 1 GM in SODIUM CHLORIDE 0.9% MINIBAG 100 ML IV SCH (09:03)
[2016-11-21] MEDS: NS W/20 MEQ KCL 1,000 ML IV SCH ×2 (09:04→19:54)
[2016-11-21] MEDS: SODIUM CHLORIDE FLUSH 0.9% 10 ML SYRINGE IVP PRN (18:02)
--- NOTE | 2016-11-21 18:39 | PROVIDER PROGRESS NOTE ---
Assessment/Plan - Problem List (2) Alcohol withdrawal Qualifiers: Complication of substance-induced condition: with delirium Qualified Code(s ): F10.231 - Alcohol dependence with withdrawal delirium Assessment/Plan: Pt awake but lethargic and weak. Pt eating solids. (3) Pancreatitis Qualifiers: Chronicity: acute Pancreatitis type: alcohol induced Acute pancreatitis complication: unspecified Qualified Code(s): K85.20 - Alcohol induced acute pancreatitis without necrosis or infection Assessment/Plan: Resolved, no further abdominal pain. (4) Weakness Assessment/Plan: Pt still feels weak. Will order OOB with assistance and slowly increase activity and bedside commode. - Current Meds Current Meds: Current Medications Generic Name Dose Route Start Last Admin Trade Name Freq PRN Reason Stop Dose Admin Carboxymethylcellulose 1 drops 11/16/16 09:45 11/16/16 11:29 Refresh 1% Ophth Drops EACHEYE 1 drops PRN PRN Administration Dry Eye Multivitamins 10 ml/ Thiamine 1,011.2 mls @ 100 mls/hr 11/16/16 09:00 11/21/16 09:03 HCl 100 mg/ Folic Acid 1 mg/ IV 100 mls/hr Sodium Chloride DAILY SHARRI Administration Lorazepam 100 mls @ 0.635 mls/hr 11/15/16 22:00 11/18/16 09:29 Ativan IV 0 mg/kg/hr .Q72H SHARRI Titration Protocol 0.01 MG/KG/HR Ceftriaxone Sodium 1 gm/ 100 mls @ 200 mls/hr 11/16/16 09:00 11/21/16 09:03 Sodium Chloride IV 200 mls/hr DAILY SHARRI Administration Sodium Chloride 500 mls @ 20 mls/hr 11/16/16 15:15 11/16/16 15:18 Normal Saline 0.9% IV 20 mls/hr .Q25H PRN Administration Central Line Protocol Potassium Chloride/Sodium Chloride 1,000 mls @ 50 mls/hr 11/18/16 19:00 09:04 Normal Saline 0.9% W/20 Meq Kcl IV Not Given .Q20H SHARRI Dexmedetomidine/Sodium Chloride 100 mls @ 5.325 mls/hr 11/18/16 15:33 11/19/16 06:50 Precedex Premix IV 0.4 mcg/kg/hr .[id number] PRN Titration Agitation Protocol 0.3 MCG/KG/HR Lorazepam 2 mg 11/15/16 19:38 11/20/16 06:18 Ativan Inj IVP 1 mg Q30M PRN Administration CIWA>8 Protocol Morphine Sulfate 2 mg 11/16/16 10:42 11/20/16 19:32 Morphine IVP 2 mg Q2HR PRN Administration PAIN Pantoprazole Sodium 40 mg 11/16/16 07:00 11/21/16 18:02 Protonix IVP 40 mg BIDAC SHARRI Administration Polyethylene Glycol 17 gm 11/16/16 09:00 11/21/16 09:03 Miralax PO 17 gm DAILY SHARRI Administration Sodium Chloride 10 ml 11/15/16 19:38 11/21/16 18:02 Normal Saline Flush 0.9% IVP 10 ml PRN PRN Administration NEEDED PER PROVIDER ORDERS Sodium Chloride 10 ml 11/15/16 22:00 11/21/16 14:07 Normal Saline Flush 0.9% IVP 10 ml Q8HR SHARRI Administration - Lab Result Lab results reviewed: Yes Fish Bone Diagrams: 11/21/16 04:35 11/21/16 04:35 Subjective - Subjective Patient Reports: Feeling Better ("I feel weak. I ate waffles for breakfast") Objective Vital Signs: Vital Signs - 24 hr 11/20/16 11/20/16 11/20/16 19:00 20:00 21:00 Temperature 36.8 C Heart Rate [ 111 H 80 78 Monitoring electrodes] Respiratory 16 16 18 Rate Blood Pressure 128/87 H 115/83 H 120/86 H [Left Brachial artery] O2 Saturation 95 100 97 11/21/16 11/21/16 11/21/16 00:41 05:00 08:32 Temperature 36.6 C 37.2 C Heart Rate [ 91 79 79 Monitoring electrodes] Respiratory 14 19 14 Rate Blood Pressure 145/100 H 147/84 H 133/90 H [Left Brachial artery] O2 Saturation 96 94 100 11/21/16 11/21/16 11/21/16 13:00 17:00 18:00 Temperature 36.6 C Heart Rate [ 80 85 78 Monitoring electrodes] Respiratory 16 14 14 Rate Blood Pressure 124/90 H 146/94 H [Left Brachial artery] O2 Saturation 96 96 96 Oxygen O2 Source Nasal cannula I&O (Last 24 Hrs): Intake and Output Totals x24h 11/19/16 11/20/16 11/21/16 23:59 23:59 23:59 Intake Total 2579 2214 3180 Output Total 3018 9055 2825 Balance -1004 -1 355 General: Alert, Other (Appears fatigued. Head tilted to right.) HEENT: Mucous membr. moist/pink, Other (Poor dentition.) Cardiovascular: Regular rate Respiratory: No respiratory distress Abdomen: Soft Extremities: No edema - Results Results: Laboratory Results WBC 4.0 x10^3/uL (4.8-10.8) L 11/21/16 04:35 RBC 2.94 10^6/uL (4.70-6.10) L 11/21/16 04:35 Hgb 10.1 g/dL (14.0-18.0) L 11/21/16 04:35 Hct 29.6 % (42.0-52.0) L 11/21/16 04:35 MCV 100.7 fL (80.0-94.0) H 11/21/16 04:35 MCH 34.3 pg (27.0-31.0) H 11/21/16 04:35 MCHC 34.1 g/dL (32.0-36.0) 11/21/16 04:35 RDW 15.9 % (12.0-15.0) H 11/21/16 04:35 Plt Count 325 10^3/uL (130-450) 11/21/16 04:35 MPV 7.2 fL (7.4-11.4) L 11/21/16 04:35 Neut # 2.2 10^3/uL (1.5-6.6) 11/21/16 04:35 Lymph # 1.1 10^3/uL (1.5-3.5) L 11/21/16 04:35 [place] # 0.6 10^3/uL (0.0-1.0) 11/21/16 04:35 Eos # 0.1 10^3/uL (0.0-0.7) 11/21/16 04:35 Baso # 0.0 10^3/uL (0.0-0.1) 11/21/16 04:35 Absolute Nucleated RBC 0.00 x10^3/uL 11/21/16 04:35 Nucleated RBCs 0.0 /100WBC 11/21/16 04:35 Whole Blood INR 1.0 (0.8-1.2) 11/15/16 19:39 Bld Gas Analysis Time 0614 11/19/16 06:05 Sample Site RIGHT RADIAL 11/19/16 06:05 ABG pH 7.40 (7.35-7.45) 11/19/16 06:05 ABG pCO2 38 mmHg (34-45) 11/19/16 06:05 ABG pO2 95 mmHg (80-100) 11/19/16 06:05 ABG HCO3 23.1 mmol/L (22.0-26.0) 11/19/16 06:05 ABG Total CO2 24.3 MMOL/L (21.0-29.0) 11/19/16 06:05 ABG O2 Saturation 97 % (94-98) 11/19/16 06:05 ABG Oximetry Spot Check 99 % 11/19/16 06:05 ABG Base Excess -1.3 mmol/L (-2.0-3.0) 11/19/16 06:05 Sherwin Test POSITIVE 11/19/16 06:05 Respiration Rate 12 b/min 11/17/16 04:35 O2 Delivery Device VENTILATOR 11/19/16 06:05 Vent Mode CPAP 11/19/16 06:05 FiO2 30.00 11/19/16 06:05 Tidal Volume 450 mL 11/19/16 06:05 PEEP 5 cmH2O 11/19/16 06:05 Pressure Support Vent 10 cmH2O 11/19/16 06:05 Sodium 140 mmol/L (135-145) 11/21/16 04:35 Potassium 3.6 mmol/L (3.5-5.0) 11/21/16 04:35 Chloride 105 mmol/L (101-111) 11/21/16 04:35 Carbon Dioxide 29 mmol/L (21-32) 11/21/16 04:35 Anion Gap 6.0 (6-13) 11/21/16 04:35 BUN < 5 mg/dL (6-20) L 11/21/16 04:35 Creatinine 0.5 mg/dL (0.6-1.2) L 11/21/16 04:35 Estimated GFR (MDRD) 179 (>89) 11/21/16 04:35 Glucose 112 mg/dL (70-100) H 11/21/16 04:35 Calcium 8.6 mg/dL (8.5-10.3) 11/21/16 04:35 Ionized Calcium NO 11/21/16 04:35 Phosphorus 4.0 mg/dL (2.5-4.6) 11/20/16 05:05 Magnesium 1.8 mg/dL (1.7-2.8) 11/20/16 05:05 Total Bilirubin 1.7 mg/dL (0.2-1.0) H 11/21/16 04:35 AST 73 IU/L (10-42) H 11/21/16 04:35 ALT 59 IU/L (10-60) 11/21/16 04:35 Alkaline Phosphatase 219 IU/L (42-121) H 11/21/16 04:35 Ammonia 9.0 umol/L (7-35) 11/20/16 05:05 Total Protein 5.4 g/dL (6.7-8.2) L 11/21/16 04:35 Albumin 2.3 g/dL (3.2-5.5) L 11/21/16 04:35 Globulin 3.1 g/dL (2.1-4.2) 11/21/16 04:35 Albumin/Globulin Ratio 0.7 (1.0-2.2) L 11/21/16 04:35 Lipase 149 U/L (22-51) H 11/15/16 17:52 Vitamin B12 2975 pg/mL (180-914) H 11/16/16 03:48 Folate 13.51 ng/mL (5.90 - >24.8) 11/16/16 03:48 TSH 1.28 uIU/mL (0.34-5.60) 11/20/16 05:05 Free T4 1.00 ng/dL (0.58-1.64) 11/20/16 05:05 Urine Color DARK YELLOW 11/15/16 18:30 Urine Clarity CLEAR (CLEAR) 11/15/16 18:30 Urine pH 6.0 PH (5.0-7.5) 11/15/16 18:30 Ur Specific [place] <=1.005 (1.002-1.030) 11/15/16 18:30 Urine Protein NEGATIVE mg/dL (NEGATIVE) 11/15/16 18:30 Urine Glucose (UA) NEGATIVE mg/dL (NEGATIVE) 11/15/16 18:30 Urine Ketones NEGATIVE mg/dL (NEGATIVE) 11/15/16 18:30 Urine Occult Blood MODERATE (NEGATIVE) H 11/15/16 18:30 Urine Nitrite POSITIVE (NEGATIVE) H 11/15/16 18:30 Urine Bilirubin NEGATIVE (NEGATIVE) 11/15/16 18:30 Urine Urobilinogen >=8.0 E.U./dL (NORMAL) H 11/15/16 18:30 Ur Leukocyte Esterase LARGE (NEGATIVE) H 11/15/16 18:30 Urine RBC 11-25 /HPF (0-5) H 11/15/16 18:30 Urine WBC >25 /HPF (0-3) H 11/15/16 18:30 Urine WBC Clumps PRESENT 11/15/16 18:30 Ur Squamous Epith Cells FEW Squamous (<= Few) 11/15/16 18:30 Urine Bacteria Many /HPF (None Seen) H 11/15/16 18:30 Urine Casts 0-2 Hyaline Casts /LPF 11/15/16 18:30 Urine Mucus Few Strands 11/15/16 18:30 Ur Microscopic Review INDICATED 11/15/16 18:30 Urine Culture Comments INDICATED 11/15/16 18:30 Urine Opiates Screen NEGATIVE (NEGATIVE) 11/15/16 18:30 Ur Oxycodone Screen NEGATIVE (NEGATIVE) 11/15/16 18:30 Urine Methadone Screen NEGATIVE (NEGATIVE) 11/15/16 18:30 Ur Propoxyphene Screen NEGATIVE (NEGATIVE) 11/15/16 18:30 Ur Barbiturates Screen NEGATIVE (NEGATIVE) 11/15/16 18:30 Ur Tricyclics Screen NEGATIVE (NEGATIVE) 11/15/16 18:30 Ur Phencyclidine Scrn NEGATIVE (NEGATIVE) 11/15/16 18:30 Ur Amphetamine Screen NEGATIVE (NEGATIVE) 11/15/16 18:30 U Methamphetamines Scrn NEGATIVE (NEGATIVE) 11/15/16 18:30 U Benzodiazepines Scrn NEGATIVE (NEGATIVE) 11/15/16 18:30 Urine Cocaine Screen NEGATIVE (NEGATIVE) 11/15/16 18:30 U Cannabinoids Screen POSITIVE (NEGATIVE) H 11/15/16 18:30 Ethyl Alcohol < 5.0 mg/dL 11/15/16 17:52 Hepatitis A IgM Ab NON-REACTIVE (NON-REACTIVE) 11/16/16 03:48 Hep Bs Antigen NON-REACTIVE (NON-REACTIVE) 11/16/16 03:48 Hep B Core IgM Ab NON-REACTIVE (NON-REACTIVE) 11/16/16 03:48 Hepatitis C Antibody NON-REACTIVE (NON-REACTIVE) 11/16/16 03:48 Hep C Ab Signal/Cutoff 0.00 (<1.00) 11/16/16 03:48 Blood Type O POSITIVE 11/15/16 17:52 Antibody Screen NEGATIVE 11/15/16 17:52 Crossmatch IS Only See Detail 11/15/16 17:52
[2016-11-21] MEDS: LORazepam 100MG/100ML 100 ML IV SCH (21:08)
[2016-11-22] MEDS ORDERED: BENZOCAINE/MENTHOL LOZENGE MM PRN (00:45)
[2016-11-22] MEDS: SODIUM CHLORIDE FLUSH 0.9% 10 ML SYRINGE IVP SCH ×2 (00:58→16:26)
[2016-11-22] MEDS: PANTOPRAZOLE 40 MG VIAL IVP SCH ×2 (06:32→16:26)
[2016-11-22 06:39] LABS: BASOPHILS # (AUTO) 0.1 10^3/uL (0.0-0.1); BASOPHILS % (AUTO) 2.6 %; EOSINOPHILS # (AUTO) 0.1 10^3/uL (0.0-0.7); EOSINOPHILS % (AUTO) 2.8 %; HGB - HEMOGLOBIN 10.6 g/dL (14.0-18.0); LYMPHOCYTES # (AUTO) 1.6 10^3/uL (1.5-3.5); MEAN CORPUSCULAR HEMOGLOBIN 33.7 pg (27.0-31.0); MEAN CORPUSCULAR HGB CONC 33.1 g/dL (32.0-36.0); MEAN CORPUSCULAR VOLUME 101.9 fL (80.0-94.0); MEAN PLATELET VOLUME 7.7 fL (7.4-11.4); MONOCYTES # (AUTO) 0.7 10^3/uL (0.0-1.0); MONOCYTES % (AUTO) 14.4 %; NEUTROPHILS # (AUTO) 2.1 10^3/uL (1.5-6.6); NEUTROPHILS % (AUTO) 46.2 %; NUCLEATED RED BLOOD CELLS AUTO 0.1 /100WBC; RED BLOOD COUNT 3.14 10^6/uL (4.70-6.10); RED CELL DISTRIBUTION WIDTH 15.5 % (12.0-15.0); UNCORRECTED WHITE BLOOD COUNT 4.6 x10^3/uL; WHITE BLOOD COUNT 4.6 x10^3/uL (4.8-10.8)
[2016-11-22 06:48] LABS: ALBUMIN/GLOBULIN RATIO 0.8 (1.0-2.2); BILIRUBIN,TOTAL 1.5 mg/dL (0.2-1.0); BUN - BLOOD UREA NITROGEN < 5 mg/dL (6-20); CALCIUM 8.6 mg/dL (8.5-10.3); CARBON DIOXIDE - CO2 28 mmol/L (21-32); CHLORIDE 103 mmol/L (101-111); CREATININE 0.6 mg/dL (0.6-1.2); GFR - MDRD 145 (>89); GLUCOSE 104 mg/dL (70-100); POTASSIUM 3.3 mmol/L (3.5-5.0); SODIUM 139 mmol/L (135-145); TOTAL PROTEIN 5.7 g/dL (6.7-8.2)
[2016-11-22] MEDS: cefTRIAXone 1 GM in SODIUM CHLORIDE 0.9% MINIBAG 100 ML IV SCH (10:05)
[2016-11-22] MEDS: POLYETHYLENE GLYCOL 3350 17 GM PACKET PO SCH (10:06)
[2016-11-22] MEDS: MULTIVITAMIN 10 ML, THIAMINE INJ 100 MG, FOLIC ACID INJ 1 MG in SODIUM CHLORIDE 0.9% 1,... IV SCH (10:06)
[2016-11-22] MEDS ORDERED: POTASSIUM CHLOR 20 MEQ/100 ML 100 ML IV ONE (16:30)
[2016-11-22] MEDS ORDERED: POTASSIUM CHLORIDE 20 MEQ TABLET PO ONE (17:04)
--- NOTE | 2016-11-22 19:18 | PROVIDER PROGRESS NOTE ---
Assessment/Plan - Problem List (1) Weakness Assessment/Plan: Pt is up in chair, movement and reaction time appears improved. PT and OT ordered. Possible DCh tomorrow. 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 - Current Meds Current Meds: Current Medications Generic Name Dose Route Start Last Admin Trade Name Freq PRN Reason Stop Dose Admin Carboxymethylcellulose 1 drops 11/16/16 09:45 11/16/16 11:29 Refresh 1% Ophth Drops EACHEYE 1 drops PRN PRN Administration Dry Eye Multivitamins 10 ml/ Thiamine 1,011.2 mls @ 100 mls/hr 11/16/16 09:00 11/22/16 10:06 HCl 100 mg/ Folic Acid 1 mg/ IV 100 mls/hr Sodium Chloride DAILY SHARRI Administration Lorazepam 100 mls @ 0.635 mls/hr 11/15/16 22:00 11/21/16 21:08 Ativan IV Not Given .Q72H SHARRI Protocol 0.01 MG/KG/HR Ceftriaxone Sodium 1 gm/ 100 mls @ 200 mls/hr 11/16/16 09:00 11/22/16 10:05 Sodium Chloride IV 200 mls/hr DAILY SHARRI Administration Sodium Chloride 500 mls @ 20 mls/hr 11/16/16 15:15 11/16/16 15:18 Normal Saline 0.9% IV 20 mls/hr .Q25H PRN Administration Central Line Protocol Potassium Chloride/Sodium Chloride 1,000 mls @ 50 mls/hr 11/18/16 19:00 19:54 Normal Saline 0.9% W/20 Meq Kcl IV 50 mls/hr .Q20H SHARRI Administration Dexmedetomidine/Sodium Chloride 100 mls @ 5.325 mls/hr 11/18/16 15:33 11/19/16 06:50 Precedex Premix IV 0.4 mcg/kg/hr .[id number] PRN Titration Agitation Protocol 0.3 MCG/KG/HR Lorazepam 2 mg 11/15/16 19:38 11/20/16 06:18 Ativan Inj IVP 1 mg Q30M PRN Administration CIWA>8 Protocol Morphine Sulfate 2 mg 11/16/16 10:42 11/20/16 19:32 Morphine IVP 2 mg Q2HR PRN Administration PAIN Pantoprazole Sodium 40 mg 11/16/16 07:00 11/22/16 16:26 Protonix IVP 40 mg BIDAC SHARRI Administration Polyethylene Glycol 17 gm 11/16/16 09:00 11/22/16 10:06 Miralax PO 17 gm DAILY SHARRI Administration Sodium Chloride 10 ml 11/15/16 19:38 11/21/16 18:02 Normal Saline Flush 0.9% IVP 10 ml PRN PRN Administration NEEDED PER PROVIDER ORDERS Sodium Chloride 10 ml 11/15/16 22:00 11/22/16 16:26 Normal Saline Flush 0.9% IVP 10 ml Q8HR SHARRI Administration Throat Lozenges 1 lozenge 11/22/16 00:45 11/22/16 01:15 Cepacol MM 1 lozenge Q2HR PRN Administration Throat pain - Lab Result Fish Bone Diagrams: 11/22/16 06:00 11/22/16 06:00 - Additional Planning My Orders: My Active Orders 11/22/16 Evaluate and Treat PT [PT] Routine 11/22/16 00:45 Benzocaine/Menthol [Cepacol] 1 lozenge MM Q2HR PRN Objective Vital Signs: Vital Signs - 24 hr 11/21/16 11/22/16 11/22/16 20:53 00:57 05:00 Temperature 37.2 C 37.3 C 36.7 C Heart Rate [ 76 70 86 Monitoring electrodes] Heart Rate [ Sitting] Heart Rate [ Supine] Respiratory 18 12 12 Rate Blood Pressure 141/86 H 140/96 H 140/97 H [Left Brachial artery] Blood Pressure [Sitting] Blood Pressure [Supine] O2 Saturation 100 99 94 11/22/16 11/22/16 11/22/16 08:05 10:35 13:00 Temperature 98.6 C H 98.8 C H Heart Rate [ 66 72 Monitoring electrodes] Heart Rate [ 102 H Sitting] Heart Rate [ 82 Supine] Respiratory 16 22 Rate Blood Pressure 135/81 H 122/79 [Left Brachial artery] Blood Pressure 126/82 H [Sitting] Blood Pressure 124/80 [Supine] O2 Saturation 98 99 11/22/16 16:00 Temperature 36.8 C Heart Rate [ 73 Monitoring electrodes] Heart Rate [ Sitting] Heart Rate [ Supine] Respiratory 18 Rate Blood Pressure 134/71 H [Left Brachial artery] Blood Pressure [Sitting] Blood Pressure [Supine] O2 Saturation 97 Oxygen O2 Source Room air I&O (Last 24 Hrs): Intake and Output Totals x24h 11/20/16 11/21/16 11/22/16 23:59 23:59 23:59 Intake Total 2214 3380 1920 Output Total 4245 3175 2275 Balance -2030 205 -355 - Results Results: Laboratory Results WBC 4.6 x10^3/uL (4.8-10.8) L 11/22/16 06:00 RBC 3.14 10^6/uL (4.70-6.10) L 11/22/16 06:00 Hgb 10.6 g/dL (14.0-18.0) L 11/22/16 06:00 Hct 32.0 % (42.0-52.0) L 11/22/16 06:00 MCV 101.9 fL (80.0-94.0) H 11/22/16 06:00 MCH 33.7 pg (27.0-31.0) H 11/22/16 06:00 MCHC 33.1 g/dL (32.0-36.0) 11/22/16 06:00 RDW 15.5 % (12.0-15.0) H 11/22/16 06:00 Plt Count 400 10^3/uL (130-450) 11/22/16 06:00 MPV 7.7 fL (7.4-11.4) 11/22/16 06:00 Neut # 2.1 10^3/uL (1.5-6.6) 11/22/16 06:00 Lymph # 1.6 10^3/uL (1.5-3.5) 11/22/16 06:00 [place] # 0.7 10^3/uL (0.0-1.0) 11/22/16 06:00 Eos # 0.1 10^3/uL (0.0-0.7) 11/22/16 06:00 Baso # 0.1 10^3/uL (0.0-0.1) 11/22/16 06:00 Absolute Nucleated RBC 0.00 x10^3/uL 11/22/16 06:00 Nucleated RBCs 0.1 /100WBC 11/22/16 06:00 Whole Blood INR 1.0 (0.8-1.2) 11/15/16 19:39 Bld Gas Analysis Time 0614 11/19/16 06:05 Sample Site RIGHT RADIAL 11/19/16 06:05 ABG pH 7.40 (7.35-7.45) 11/19/16 06:05 ABG pCO2 38 mmHg (34-45) 11/19/16 06:05 ABG pO2 95 mmHg (80-100) 11/19/16 06:05 ABG HCO3 23.1 mmol/L (22.0-26.0) 11/19/16 06:05 ABG Total CO2 24.3 MMOL/L (21.0-29.0) 11/19/16 06:05 ABG O2 Saturation 97 % (94-98) 11/19/16 06:05 ABG Oximetry Spot Check 99 % 11/19/16 06:05 ABG Base Excess -1.3 mmol/L (-2.0-3.0) 11/19/16 06:05 [place] Test POSITIVE 11/19/16 06:05 Respiration Rate 12 b/min 11/17/16 04:35 O2 Delivery Device VENTILATOR 11/19/16 06:05 Vent Mode CPAP 11/19/16 06:05 FiO2 30.00 11/19/16 06:05 Tidal Volume 450 mL 11/19/16 06:05 PEEP 5 cmH2O 11/19/16 06:05 Pressure Support Vent 10 cmH2O 11/19/16 06:05 Sodium 139 mmol/L (135-145) 11/22/16 06:00 Potassium 3.3 mmol/L (3.5-5.0) L 11/22/16 06:00 Chloride 103 mmol/L (101-111) 11/22/16 06:00 Carbon Dioxide 28 mmol/L (21-32) 11/22/16 06:00 Anion Gap 8.0 (6-13) 11/22/16 06:00 BUN < 5 mg/dL (6-20) L 11/22/16 06:00 Creatinine 0.6 mg/dL (0.6-1.2) 11/22/16 06:00 Estimated GFR (MDRD) 145 (>89) 11/22/16 06:00 Glucose 104 mg/dL (70-100) H 11/22/16 06:00 Calcium 8.6 mg/dL (8.5-10.3) 11/22/16 06:00 Ionized Calcium NO 11/22/16 06:00 Phosphorus 4.0 mg/dL (2.5-4.6) 11/20/16 05:05 Magnesium 1.8 mg/dL (1.7-2.8) 11/20/16 05:05 Total Bilirubin 1.5 mg/dL (0.2-1.0) H 11/22/16 06:00 AST 82 IU/L (10-42) H 11/22/16 06:00 ALT 62 IU/L (10-60) H 11/22/16 06:00 Alkaline Phosphatase 218 IU/L (42-121) H 11/22/16 06:00 Ammonia 9.0 umol/L (7-35) 11/20/16 05:05 Total Protein 5.7 g/dL (6.7-8.2) L 11/22/16 06:00 Albumin 2.5 g/dL (3.2-5.5) L 11/22/16 06:00 Globulin 3.2 g/dL (2.1-4.2) 11/22/16 06:00 Albumin/Globulin Ratio 0.8 (1.0-2.2) L 11/22/16 06:00 Lipase 149 U/L (22-51) H 11/15/16 17:52 Vitamin B12 2975 pg/mL (180-914) H 11/16/16 03:48 Folate 13.51 ng/mL (5.90 - >24.8) 11/16/16 03:48 TSH 1.28 uIU/mL (0.34-5.60) 11/20/16 05:05 Free T4 1.00 ng/dL (0.58-1.64) 11/20/16 05:05 Urine Color DARK YELLOW 11/15/16 18:30 Urine Clarity CLEAR (CLEAR) 11/15/16 18:30 Urine pH 6.0 PH (5.0-7.5) 11/15/16 18:30 Ur Specific [place] <=1.005 (1.002-1.030) 11/15/16 18:30 Urine Protein NEGATIVE mg/dL (NEGATIVE) 11/15/16 18:30 Urine Glucose (UA) NEGATIVE mg/dL (NEGATIVE) 11/15/16 18:30 Urine Ketones NEGATIVE mg/dL (NEGATIVE) 11/15/16 18:30 Urine Occult Blood MODERATE (NEGATIVE) H 11/15/16 18:30 Urine Nitrite POSITIVE (NEGATIVE) H 11/15/16 18:30 Urine Bilirubin NEGATIVE (NEGATIVE) 11/15/16 18:30 Urine Urobilinogen >=8.0 E.U./dL (NORMAL) H 11/15/16 18:30 Ur Leukocyte Esterase LARGE (NEGATIVE) H 11/15/16 18:30 Urine RBC 11-25 /HPF (0-5) H 11/15/16 18:30 Urine WBC >25 /HPF (0-3) H 11/15/16 18:30 Urine WBC Clumps PRESENT 11/15/16 18:30 Ur Squamous Epith Cells FEW Squamous (<= Few) 11/15/16 18:30 Urine Bacteria Many /HPF (None Seen) H 11/15/16 18:30 Urine Casts 0-2 Hyaline Casts /LPF 11/15/16 18:30 Urine Mucus Few Strands 11/15/16 18:30 Ur Microscopic Review INDICATED 11/15/16 18:30 Urine Culture Comments INDICATED 11/15/16 18:30 Urine Opiates Screen NEGATIVE (NEGATIVE) 11/15/16 18:30 Ur Oxycodone Screen NEGATIVE (NEGATIVE) 11/15/16 18:30 Urine Methadone Screen NEGATIVE (NEGATIVE) 11/15/16 18:30 Ur Propoxyphene Screen NEGATIVE (NEGATIVE) 11/15/16 18:30 Ur Barbiturates Screen NEGATIVE (NEGATIVE) 11/15/16 18:30 Ur Tricyclics Screen NEGATIVE (NEGATIVE) 11/15/16 18:30 Ur Phencyclidine Scrn NEGATIVE (NEGATIVE) 11/15/16 18:30 Ur Amphetamine Screen NEGATIVE (NEGATIVE) 11/15/16 18:30 U Methamphetamines Scrn NEGATIVE (NEGATIVE) 11/15/16 18:30 U Benzodiazepines Scrn NEGATIVE (NEGATIVE) 11/15/16 18:30 Urine Cocaine Screen NEGATIVE (NEGATIVE) 11/15/16 18:30 U Cannabinoids Screen POSITIVE (NEGATIVE) H 11/15/16 18:30 Ethyl Alcohol < 5.0 mg/dL 11/15/16 17:52 Hepatitis A IgM Ab NON-REACTIVE (NON-REACTIVE) 11/16/16 03:48 Hep Bs Antigen NON-REACTIVE (NON-REACTIVE) 11/16/16 03:48 Hep B Core IgM Ab NON-REACTIVE (NON-REACTIVE) 11/16/16 03:48 Hepatitis C Antibody NON-REACTIVE (NON-REACTIVE) 11/16/16 03:48 Hep C Ab Signal/Cutoff 0.00 (<1.00) 11/16/16 03:48 Blood Type O POSITIVE 11/15/16 17:52 Antibody Screen NEGATIVE 11/15/16 17:52 Crossmatch IS Only See Detail 11/15/16 17:52
[2016-11-22] MEDS: NS W/20 MEQ KCL 1,000 ML IV SCH (23:37)
[2016-11-23] MEDS: SODIUM CHLORIDE FLUSH 0.9% 10 ML SYRINGE IVP SCH ×2 (04:35→17:53)
[2016-11-23 05:34] LABS: BASOPHILS # (AUTO) 0.1 10^3/uL (0.0-0.1); BASOPHILS % (AUTO) 2.6 %; EOSINOPHILS # (AUTO) 0.1 10^3/uL (0.0-0.7); EOSINOPHILS % (AUTO) 2.1 %; HCT - HEMATOCRIT 29.1 % (42.0-52.0); HGB - HEMOGLOBIN 9.8 g/dL (14.0-18.0); LYMPHOCYTES # (AUTO) 1.4 10^3/uL (1.5-3.5); MEAN CORPUSCULAR HEMOGLOBIN 34.2 pg (27.0-31.0); MEAN CORPUSCULAR HGB CONC 33.7 g/dL (32.0-36.0); MEAN CORPUSCULAR VOLUME 101.7 fL (80.0-94.0); MEAN PLATELET VOLUME 7.7 fL (7.4-11.4); MONOCYTES # (AUTO) 0.5 10^3/uL (0.0-1.0); MONOCYTES % (AUTO) 11.2 %; NEUTROPHILS # (AUTO) 2.3 10^3/uL (1.5-6.6); NEUTROPHILS % (AUTO) 52.1 %; NUCLEATED RED BLOOD CELLS AUTO 0.1 /100WBC; RED BLOOD COUNT 2.86 10^6/uL (4.70-6.10); RED CELL DISTRIBUTION WIDTH 15.2 % (12.0-15.0); UNCORRECTED WHITE BLOOD COUNT 4.5 x10^3/uL; WHITE BLOOD COUNT 4.5 x10^3/uL (4.8-10.8)
[2016-11-23 05:49] LABS: ALBUMIN/GLOBULIN RATIO 0.9 (1.0-2.2); BILIRUBIN,TOTAL 1.6 mg/dL (0.2-1.0); BUN - BLOOD UREA NITROGEN 5 mg/dL (6-20); CALCIUM 8.8 mg/dL (8.5-10.3); CARBON DIOXIDE - CO2 29 mmol/L (21-32); CHLORIDE 105 mmol/L (101-111); CREATININE 0.6 mg/dL (0.6-1.2); GFR - MDRD 145 (>89); GLUCOSE 98 mg/dL (70-100); POTASSIUM 3.3 mmol/L (3.5-5.0); SODIUM 142 mmol/L (135-145); TOTAL PROTEIN 5.6 g/dL (6.7-8.2)
[2016-11-23] MEDS ORDERED: POTASSIUM CHLORIDE 20 MEQ TABLET PO SCH (05:57)
[2016-11-23] MEDS ORDERED: SODIUM CHLORIDE FLUSH 0.9% 10 ML SYRINGE IVP ONE (06:52)
[2016-11-23] MEDS: PANTOPRAZOLE 40 MG VIAL IVP SCH (06:58)
[2016-11-23] MEDS: cefTRIAXone 1 GM in SODIUM CHLORIDE 0.9% MINIBAG 100 ML IV SCH (09:01)
[2016-11-23] MEDS: POLYETHYLENE GLYCOL 3350 17 GM PACKET PO SCH (09:01)
[2016-11-23] MEDS: NS W/20 MEQ KCL 1,000 ML IV SCH (17:52)
--- NOTE | 2016-11-23 18:27 | PROVIDER PROGRESS NOTE ---
Assessment/Plan - Problem List (1) Weakness Assessment/Plan: Improved. OT ordered. PT reports Pt walked with rolling quad walker today, but not yet steady. Pt will need 24 hr supervision as of now, which is being evaluated by Social Work and Case management. (2) Acute alcohol intoxication delirium with moderate or severe use disorder Assessment/Plan: Resolved (3) Alcohol withdrawal Qualifiers: Complication of substance-induced condition: with delirium Qualified Code(s ): F10.231 - Alcohol dependence with withdrawal delirium Assessment/Plan: Resolved (4) Pancreatitis Qualifiers: Chronicity: acute Pancreatitis type: alcohol induced Acute pancreatitis complication: unspecified Qualified Code(s): K85.20 - Alcohol induced acute pancreatitis without necrosis or infection Assessment/Plan: Improving. Pt has no abdominal pain and eating solid foods. Low-grade elevation of LFTs and bili persist however. (5) UTI (urinary tract infection) Qualifiers: Urinary tract infection type: site unspecified Hematuria presence: with hematuria Qualified Code(s): N39.0 - Urinary tract infection, site not specified; R31.9 - Hematuria, unspecified Assessment/Plan: Resolved. Pt has no symptoms. Will stop iv Rocephin as Pt has completed 8 days of treatment. - Current Meds Current Meds: Current Medications Generic Name Dose Route Start Last Admin Trade Name Freq PRN Reason Stop Dose Admin Carboxymethylcellulose 1 drops 11/16/16 09:45 11/16/16 11:29 Refresh 1% Ophth Drops EACHEYE 1 drops PRN PRN Administration Dry Eye Lorazepam 100 mls @ 0.635 mls/hr 11/15/16 22:00 11/21/16 21:08 Ativan IV Not Given .Q72H SHARRI Protocol 0.01 MG/KG/HR Sodium Chloride 500 mls @ 20 mls/hr 11/16/16 15:15 11/16/16 15:18 Normal Saline 0.9% IV 20 mls/hr .Q25H PRN Administration Central Line Protocol Potassium Chloride/Sodium Chloride 1,000 mls @ 50 mls/hr 11/18/16 19:00 17:52 Normal Saline 0.9% W/20 Meq Kcl IV Not Given .Q20H SHARRI Polyethylene Glycol 17 gm 11/16/16 09:00 11/23/16 09:01 Miralax PO 17 gm DAILY SHARRI Administration Sodium Chloride 10 ml 11/15/16 19:38 11/21/16 18:02 Normal Saline Flush 0.9% IVP 10 ml PRN PRN Administration NEEDED PER PROVIDER ORDERS Sodium Chloride 10 ml 11/15/16 22:00 11/23/16 17:53 Normal Saline Flush 0.9% IVP 10 ml Q8HR SHARRI Administration Throat Lozenges 1 lozenge 11/22/16 00:45 11/22/16 01:15 Cepacol MM 1 lozenge Q2HR PRN Administration Throat pain - Lab Result Fish Bone Diagrams: 11/23/16 05:00 11/23/16 05:00 - Additional Planning My Orders: My Active Orders 11/23/16 Evaluate and Treat OT [OT] Routine 11/23/16 Lunch DIET [Regular Diet] [DIET] 11/24/16 08:00 Multivitamin W/Minerals [Theragran M] 1 tab PO DAILYWM Objective Vital Signs: Vital Signs - 24 hr 11/22/16 11/23/16 11/23/16 21:00 00:00 05:00 Temperature 36.7 C 36.8 C 36.7 C Heart Rate [ 68 67 72 Monitoring electrodes] Respiratory 18 16 18 Rate Blood Pressure 127/80 131/79 H 135/74 H [Left Brachial artery] O2 Saturation 98 97 98 11/23/16 11/23/16 11/23/16 07:48 13:10 16:56 Temperature 37.2 C 37.3 C Heart Rate [ 66 74 68 Monitoring electrodes] Respiratory 20 20 15 Rate Blood Pressure 123/75 125/84 H 145/95 H [Left Brachial artery] O2 Saturation 98 97 98 Oxygen O2 Source Room air I&O (Last 24 Hrs): Intake and Output Totals x24h 11/21/16 11/22/16 11/23/16 23:59 23:59 23:59 Intake Total 3380 3020 3310 Output Total 3175 2825 2875 Balance 205 195 435 - Results Results: Laboratory Results WBC 4.5 x10^3/uL (4.8-10.8) L 11/23/16 05:00 RBC 2.86 10^6/uL (4.70-6.10) L 11/23/16 05:00 Hgb 9.8 g/dL (14.0-18.0) L 11/23/16 05:00 Hct 29.1 % (42.0-52.0) L 11/23/16 05:00 MCV 101.7 fL (80.0-94.0) H 11/23/16 05:00 MCH 34.2 pg (27.0-31.0) H 11/23/16 05:00 MCHC 33.7 g/dL (32.0-36.0) 11/23/16 05:00 RDW 15.2 % (12.0-15.0) H 11/23/16 05:00 Plt Count 341 10^3/uL (130-450) 11/23/16 05:00 MPV 7.7 fL (7.4-11.4) 11/23/16 05:00 Neut # 2.3 10^3/uL (1.5-6.6) 11/23/16 05:00 Lymph # 1.4 10^3/uL (1.5-3.5) L 11/23/16 05:00 [place] # 0.5 10^3/uL (0.0-1.0) 11/23/16 05:00 Eos # 0.1 10^3/uL (0.0-0.7) 11/23/16 05:00 Baso # 0.1 10^3/uL (0.0-0.1) 11/23/16 05:00 Absolute Nucleated RBC 0.00 x10^3/uL 11/23/16 05:00 Nucleated RBCs 0.1 /100WBC 11/23/16 05:00 Whole Blood INR 1.0 (0.8-1.2) 11/15/16 19:39 Bld Gas Analysis Time 61311/19/16 06:05 Sample Site RIGHT RADIAL 11/19/16 06:05 ABG pH 7.40 (7.35-7.45) 11/19/16 06:05 ABG pCO2 38 mmHg (34-45) 11/19/16 06:05 ABG pO2 95 mmHg (80-100) 11/19/16 06:05 ABG HCO3 23.1 mmol/L (22.0-26.0) 11/19/16 06:05 ABG Total CO2 24.3 MMOL/L (21.0-29.0) 11/19/16 06:05 ABG O2 Saturation 97 % (94-98) 11/19/16 06:05 ABG Oximetry Spot Check 99 % 11/19/16 06:05 ABG Base Excess -1.3 mmol/L (-2.0-3.0) 11/19/16 06:05 Sherwin Test POSITIVE 11/19/16 06:05 Respiration Rate 12 b/min 11/17/16 04:35 O2 Delivery Device VENTILATOR 11/19/16 06:05 Vent Mode CPAP 11/19/16 06:05 FiO2 30.00 11/19/16 06:05 Tidal Volume 450 mL 11/19/16 06:05 PEEP 5 cmH2O 11/19/16 06:05 Pressure Support Vent 10 cmH2O 11/19/16 06:05 Sodium 142 mmol/L (135-145) 11/23/16 05:00 Potassium 3.3 mmol/L (3.5-5.0) L 11/23/16 05:00 Chloride 105 mmol/L (101-111) 11/23/16 05:00 Carbon Dioxide 29 mmol/L (21-32) 11/23/16 05:00 Anion Gap 8.0 (6-13) 11/23/16 05:00 BUN 5 mg/dL (6-20) L 11/23/16 05:00 Creatinine 0.6 mg/dL (0.6-1.2) 11/23/16 05:00 Estimated GFR (MDRD) 145 (>89) 11/23/16 05:00 Glucose 98 mg/dL (70-100) 11/23/16 05:00 Calcium 8.8 mg/dL (8.5-10.3) 11/23/16 05:00 Ionized Calcium NO 11/23/16 05:00 Phosphorus 4.0 mg/dL (2.5-4.6) 11/20/16 05:05 Magnesium 1.8 mg/dL (1.7-2.8) 11/20/16 05:05 Total Bilirubin 1.6 mg/dL (0.2-1.0) H 11/23/16 05:00 AST 68 IU/L (10-42) H 11/23/16 05:00 ALT 55 IU/L (10-60) 11/23/16 05:00 Alkaline Phosphatase 190 IU/L (42-121) H 11/23/16 05:00 Ammonia 9.0 umol/L (7-35) 11/20/16 05:05 Total Protein 5.6 g/dL (6.7-8.2) L 11/23/16 05:00 Albumin 2.6 g/dL (3.2-5.5) L 11/23/16 05:00 Globulin 3.0 g/dL (2.1-4.2) 11/23/16 05:00 Albumin/Globulin Ratio 0.9 (1.0-2.2) L 11/23/16 05:00 Lipase 149 U/L (22-51) H 11/15/16 17:52 Vitamin B12 2975 pg/mL (180-914) H 11/16/16 03:48 Folate 13.51 ng/mL (5.90 - >24.8) 11/16/16 03:48 TSH 1.28 uIU/mL (0.34-5.60) 11/20/16 05:05 Free T4 1.00 ng/dL (0.58-1.64) 11/20/16 05:05 Urine Color DARK YELLOW 11/15/16 18:30 Urine Clarity CLEAR (CLEAR) 11/15/16 18:30 Urine pH 6.0 PH (5.0-7.5) 11/15/16 18:30 Ur Specific [place] <=1.005 (1.002-1.030) 11/15/16 18:30 Urine Protein NEGATIVE mg/dL (NEGATIVE) 11/15/16 18:30 Urine Glucose (UA) NEGATIVE mg/dL (NEGATIVE) 11/15/16 18:30 Urine Ketones NEGATIVE mg/dL (NEGATIVE) 11/15/16 18:30 Urine Occult Blood MODERATE (NEGATIVE) H 11/15/16 18:30 Urine Nitrite POSITIVE (NEGATIVE) H 11/15/16 18:30 Urine Bilirubin NEGATIVE (NEGATIVE) 11/15/16 18:30 Urine Urobilinogen >=8.0 E.U./dL (NORMAL) H 11/15/16 18:30 Ur Leukocyte Esterase LARGE (NEGATIVE) H 11/15/16 18:30 Urine RBC 11-25 /HPF (0-5) H 11/15/16 18:30 Urine WBC >25 /HPF (0-3) H 11/15/16 18:30 Urine WBC Clumps PRESENT 11/15/16 18:30 Ur Squamous Epith Cells FEW Squamous (<= Few) 11/15/16 18:30 Urine Bacteria Many /HPF (None Seen) H 11/15/16 18:30 Urine Casts 0-2 Hyaline Casts /LPF 11/15/16 18:30 Urine Mucus Few Strands 11/15/16 18:30 Ur Microscopic Review INDICATED 11/15/16 18:30 Urine Culture Comments INDICATED 11/15/16 18:30 Urine Opiates Screen NEGATIVE (NEGATIVE) 11/15/16 18:30 Ur Oxycodone Screen NEGATIVE (NEGATIVE) 11/15/16 18:30 Urine Methadone Screen NEGATIVE (NEGATIVE) 11/15/16 18:30 Ur Propoxyphene Screen NEGATIVE (NEGATIVE) 11/15/16 18:30 Ur Barbiturates Screen NEGATIVE (NEGATIVE) 11/15/16 18:30 Ur Tricyclics Screen NEGATIVE (NEGATIVE) 11/15/16 18:30 Ur Phencyclidine Scrn NEGATIVE (NEGATIVE) 11/15/16 18:30 Ur Amphetamine Screen NEGATIVE (NEGATIVE) 11/15/16 18:30 U Methamphetamines Scrn NEGATIVE (NEGATIVE) 11/15/16 18:30 U Benzodiazepines Scrn NEGATIVE (NEGATIVE) 11/15/16 18:30 Urine Cocaine Screen NEGATIVE (NEGATIVE) 11/15/16 18:30 U Cannabinoids Screen POSITIVE (NEGATIVE) H 11/15/16 18:30 Ethyl Alcohol < 5.0 mg/dL 11/15/16 17:52 Hepatitis A IgM Ab NON-REACTIVE (NON-REACTIVE) 11/16/16 03:48 Hep Bs Antigen NON-REACTIVE (NON-REACTIVE) 11/16/16 03:48 Hep B Core IgM Ab NON-REACTIVE (NON-REACTIVE) 11/16/16 03:48 Hepatitis C Antibody NON-REACTIVE (NON-REACTIVE) 11/16/16 03:48 Hep C Ab Signal/Cutoff 0.00 (<1.00) 11/16/16 03:48 Blood Type O POSITIVE 11/15/16 17:52 Antibody Screen NEGATIVE 11/15/16 17:52 Crossmatch IS Only See Detail 11/15/16 17:52
[2016-11-24] MEDS: SODIUM CHLORIDE FLUSH 0.9% 10 ML SYRINGE IVP SCH ×3 (04:53→13:16)
[2016-11-24 05:58] LABS: BASOPHILS # (AUTO) 0.2 10^3/uL (0.0-0.1); BASOPHILS % (AUTO) 2.7 %; EOSINOPHILS # (AUTO) 0.1 10^3/uL (0.0-0.7); HCT - HEMATOCRIT 30.8 % (42.0-52.0); HGB - HEMOGLOBIN 10.1 g/dL (14.0-18.0); LYMPHOCYTES % (AUTO) 34.5 %; MEAN CORPUSCULAR HEMOGLOBIN 33.4 pg (27.0-31.0); MEAN CORPUSCULAR HGB CONC 32.9 g/dL (32.0-36.0); MEAN CORPUSCULAR VOLUME 101.5 fL (80.0-94.0); MEAN PLATELET VOLUME 7.9 fL (7.4-11.4); MONOCYTES # (AUTO) 0.6 10^3/uL (0.0-1.0); MONOCYTES % (AUTO) 10.3 %; NEUTROPHILS # (AUTO) 2.9 10^3/uL (1.5-6.6); NEUTROPHILS % (AUTO) 50.5 %; NUCLEATED RED BLOOD CELLS AUTO 0.1 /100WBC; RED BLOOD COUNT 3.03 10^6/uL (4.70-6.10); UNCORRECTED WHITE BLOOD COUNT 5.7 x10^3/uL; WHITE BLOOD COUNT 5.7 x10^3/uL (4.8-10.8)
[2016-11-24 06:12] LABS: ALBUMIN/GLOBULIN RATIO 0.8 (1.0-2.2); BILIRUBIN,TOTAL 1.5 mg/dL (0.2-1.0); BUN - BLOOD UREA NITROGEN 5 mg/dL (6-20); CARBON DIOXIDE - CO2 30 mmol/L (21-32); CHLORIDE 102 mmol/L (101-111); CREATININE 0.6 mg/dL (0.6-1.2); GFR - MDRD 145 (>89); GLUCOSE 88 mg/dL (70-100); POTASSIUM 3.3 mmol/L (3.5-5.0); SODIUM 141 mmol/L (135-145); TOTAL PROTEIN 5.9 g/dL (6.7-8.2)
[2016-11-24] MEDS ORDERED: POTASSIUM CHLORIDE 20 MEQ TABLET PO SCH (06:48)
[2016-11-24] MEDS ORDERED: MULTIVITAMIN W/MINERALS TABLET PO SCH (08:00)
--- NOTE | 2016-11-24 08:11 | Discharge Plan ---
Discharge Plan Disposition: 01 Home, Self Care Condition: Good Diet: Regular Activity Restrictions: Activity as Tolerated Shower Restrictions: No Driving Restrictions: No Additional Instructions or Follow Up instructions: you were admitted because alcohol withdrawal had caused dehyration, low potassium, altered consciousness. After treatment, you have now returned to a baseline state. Please refrain from ANY alcohol use whatsoever. Take a multivitamin daily. Go to AA for counselling. No Smoking: If you smoke, Please STOP! Call for help.
[2016-11-24] MEDS: POLYETHYLENE GLYCOL 3350 17 GM PACKET PO SCH (08:29)
[2016-11-24 12:57] VITALS: BP 142/94
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
== END 2016-11-24 15:03 | disposition home or self-care (01) | DRG 896 ==
LOC: EDUNIT# → ED 17:13 → MS 19:38 → ICU 21:16
PROVIDERS: ADMIT Specialist; ATTEND Internal Medicine
PROC: 0BH17EZ Insertion of Endotracheal Airway into Trachea, Via Natural or Artificial Opening (ICD-10-PCS; 2016-11-15)
PROC: 5A1955Z Respiratory Ventilation, Greater than 96 Consecutive Hours (ICD-10-PCS; 2016-11-15)
PROC: 02HV33Z Insertion of Infusion Device into Superior Vena Cava, Percutaneous Approach (ICD-10-PCS; principal; 2016-11-16)
PROC: 0DH67UZ Insertion of Feeding Device into Stomach, Via Natural or Artificial Opening (ICD-10-PCS; 2016-11-17)
PROC: 30233N1 Transfusion of Nonautologous Red Blood Cells into Peripheral Vein, Percutaneous Approach (ICD-10-PCS; 2016-11-17)
DX: F10.231 Alcohol dependence with withdrawal delirium (principal); K85.20 Alcohol induced acute pancreatitis without necrosis or infection; E87.1 Hypo-osmolality and hyponatremia; E44.0 Moderate protein-calorie malnutrition; N39.0 Urinary tract infection, site not specified; K92.2 Gastrointestinal hemorrhage, unspecified; E87.6 Hypokalemia; D50.0 Iron deficiency anemia secondary to blood loss (chronic); K75.9 Inflammatory liver disease, unspecified; B96.20 Unspecified Escherichia coli [E. coli] as the cause of diseases classified elsewhere; R53.1 Weakness; Z59.0 Homelessness; F17.210 Nicotine dependence, cigarettes, uncomplicated; Z82.3 Family history of stroke; Z78.1 Physical restraint status; F10.221 Alcohol dependence with intoxication delirium; E86.0 Dehydration; Z68.21 Body mass index [BMI] 21.0-21.9, adult
CPT/HCPCS: 36415; 36600; 70450; 71010; 74176; 80053; 80074; 80306; 80320; 81001; 81003; 82140; 82270; 82607; 82746; 82803; 83690; 83735; 84100; 84132; 84439; 84443; 85025; 85610; 86850; 86900; 86901; 86920; 87077; 87086; 87150; 94002; 94003; 96361; 96365; 96372; 96375; 96376; 99284; 99285

== ENCOUNTER 2020-06-22 20:29 | Outpatient (CLI) | payer SELFPAY | END 2020-06-22 20:30 | disposition critical access hospital (66) | LOC: EMS 20:29 | PROVIDERS: ATTEND Emergency Medicine | DX: T23.042A Burn of unspecified degree of multiple left fingers (nail), including thumb, initial encounter (principal); X08.8XXA Exposure to other specified smoke, fire and flames, initial encounter; W40.8XXA Explosion of other specified explosive materials, initial encounter; Y93.9 Activity, unspecified | CPT/HCPCS: A0425; A0427 ==

== ENCOUNTER 2020-06-22 21:05 | Emergency (ER) | payer MEDICAID ==
[2020-06-22] MEDS ORDERED: TETANUS/DIPHTHERIA/PERTUSSIS 0.5 ML SYRINGE IM ONE (21:19)
[2020-06-22] MEDS ORDERED: HYDROmorphone 1 MG/ML CARPUJECT IVP STA (21:19)
[2020-06-22] MEDS ORDERED: LORazepam 2 MG/ML VIAL IVP STA (21:21)
[2020-06-22] MEDS ORDERED: cephALEXin 250 MG CAPSULE PO STA (21:22)
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
[2020-06-22] MEDS ORDERED: BACITRACIN ZINC OINT 1 PACKET TOP STA (21:57)
[2020-06-22 22:05] LABS: BASOPHILS % (AUTO) 0.9 %; EOSINOPHILS # (AUTO) 0.1 10^3/uL (0.0-0.7); EOSINOPHILS % (AUTO) 1.6 %; HGB - HEMOGLOBIN 13.7 g/dL (14.0-18.0); LYMPHOCYTES # (AUTO) 1.3 10^3/uL (1.5-3.5); LYMPHOCYTES % (AUTO) 29.1 %; MEAN CORPUSCULAR HEMOGLOBIN 35.5 pg (27.0-31.0); MEAN CORPUSCULAR HGB CONC 33.8 g/dL (32.0-36.0); MEAN CORPUSCULAR VOLUME 104.9 fL (80.0-94.0); MEAN PLATELET VOLUME 9.8 fL (7.4-11.4); MONOCYTES # (AUTO) 0.4 10^3/uL (0.0-1.0); NEUTROPHILS # (AUTO) 2.6 10^3/uL (1.5-6.6); NEUTROPHILS % (AUTO) 58.2 %; PLT - PLATELET COUNT 107 10^3/uL (130-450); RED BLOOD COUNT 3.86 10^6/uL (4.70-6.10); RED CELL DISTRIBUTION WIDTH 15.4 % (12.0-15.0); WHITE BLOOD COUNT 4.4 x10^3/uL (4.8-10.8)
[2020-06-22 22:17] LABS: ALBUMIN 3.6 g/dL (3.2-5.5); ALBUMIN/GLOBULIN RATIO 1.2 (1.0-2.2); BILIRUBIN,TOTAL 1.1 mg/dL (0.2-1.0); CALCIUM 8.7 mg/dL (8.5-10.3); CREATININE 0.7 mg/dL (0.6-1.2); TOTAL PROTEIN 6.6 g/dL (6.7-8.2)
[2020-06-22 22:50] VITALS: BP 146/105
== END 2020-06-22 22:53 | disposition home or self-care (01) ==
LOC: EDUNIT# → ED 21:05
DX: T23.342A Burn of third degree of multiple left fingers (nail), including thumb, initial encounter (principal); X04.XXXA Exposure to ignition of highly flammable material, initial encounter; Z23 Encounter for immunization; F17.200 Nicotine dependence, unspecified, uncomplicated
CPT/HCPCS: 16020; 80053; 83690; 85025; 90471; 90715; 96374; 96375; 99283; A9270; J1170; J2060; 36415

== ENCOUNTER 2020-07-04 14:10 | Outpatient (CLI) | payer MEDICAID | END 2020-07-04 14:11 | disposition critical access hospital (66) | LOC: EMS 14:10 | PROVIDERS: ATTEND Emergency Medicine | DX: M79.632 Pain in left forearm (principal) | CPT/HCPCS: A0425; A0427; A0999 ==

== ENCOUNTER 2020-07-04 14:44 | Emergency (ER) | payer MEDICAID ==
[2020-07-04] MEDS ORDERED: SODIUM CHLORIDE 0.9% 1,000 ML IV STA (14:52)
[2020-07-04] MEDS ORDERED: THIAMINE INJ 100 MG in SODIUM CHLORIDE 0.9% 50 ML IV STA (14:52)
--- NOTE | 2020-07-04 14:53 | ED Physician Documentation ---
PD HPI Fall - Stated complaint Stated Complaint: FALL - History obtained from History obtained from: Patient, EMS - Additional information Additional information: This is a 49-year-old gentleman who was seen a few weeks ago for finger finch. He states that he was getting ready to go to [facility] for follow-up today, this was to be his first follow-up after the finch. He had had a few alcoholic beverages and was made out of his own home and found out the door onto the ground. There was positive loss of consciousness and now he complains of headache, left upper lateral posterior chest pain. He was noted to be anisocoric prior to arrival however this is not present on my evaluation. He declines pain medication on initial evaluation. It is noted that he did receive tetanus vaccine on his last visit. Review of Systems Ten Systems: 10 systems reviewed and negative Constitutional: reports: Reviewed and negative Nose: reports: Reviewed and negative Throat: reports: Reviewed and negative Cardiac: reports: Reviewed and negative PD PAST MEDICAL HISTORY - Past Medical History Cardiovascular: Hypertension Endocrine/Autoimmune: Type 2 diabetes - Past Surgical History Past Surgical History: No - Allergies Allergies/Adverse Reactions: Allergies Allergy/AdvReac Type Severity Reaction Status Date / Time No Known Drug Allergies Allergy Verified 07/04/20 15:00 - Social History Does the pt smoke?: Yes Smoking Status: Current every day smoker Does the pt drink ETOH?: Yes Does the pt have substance abuse?: Yes - Immunizations Immunizations are current?: Yes PD ED PE NORMAL - Vitals Vital signs reviewed: Yes - General General: Alert and oriented X 3 (He is alert and oriented and follows commands with mildly spur slurred speech and smells of alcohol.) - HEENT HEENT: PERRL, EOMI - Neck Neck: No bony TTP (But maintained in a c-collar pending imaging given intoxication) - Cardiac Cardiac: RRR, No murmur - Respiratory Respiratory: No respiratory distress, Clear bilaterally - Abdomen Abdomen: Non tender - Back Back: No spinal TTP, Other (Tender about rib 6 on the left give or take in the posterior axillary line) - Derm Derm: Normal color, Warm and dry - Neuro Neuro: Alert and oriented X 3, Normal speech Results - Vitals Vitals: Vital Signs - 24 hr 07/04/20 07/04/20 07/04/20 14:45 14:53 16:08 Temperature 35.9 C L 36.8 C Heart Rate 72 68 70 Respiratory 18 18 16 Rate Blood Pressure 131/86 H 141/92 H 120/88 H O2 Saturation 98 98 98 Oxygen O2 Source Room air - Rads (name of study) CT Head/Chest/Cspine Radiology: EMP read contemporaneously PD MEDICAL DECISION MAKING - ED course ED course: 49-year-old gentleman presents after a fall from a few feet onto his face injuring his head and back. CT imaging done and negative. C-collar removed. His fingers of the left hand were examined; good signs of healing. Compared with photos in chart from last visit. No sign of infection. Will be redressed with Xeroform and tube gauze. He requests something for pain, discussed with him since he is intoxicated nothing is particularly safe. Departure - Departure Disposition: 01 Home, Self Care Clinical Impression: Fall Qualifiers: Encounter type: initial encounter Qualified Code(s): W19.XXXA - Unspecified fall, initial encounter Chest wall contusion Qualifiers: Encounter type: initial encounter Laterality: left Qualified Code(s): S20.212A - Contusion of left front wall of thorax, initial encounter Head injury Qualifiers: Encounter type: initial encounter Qualified Code(s): S09.90XA - Unspecified injury of head, initial encounter Condition: Good Record reviewed to determine appropriate education?: Yes Instructions: ED Contusion Chest Wall, ED Head Injury Closed Comments: The fingers look like they are healing well, continue current wound care plan and follow-up at [facility] as previously recommended. Return for new or worsening symptoms. Abstain from alcohol. Discharge Date/Time: 07/04/20 16:23
--- NOTE | 2020-07-04 15:34 | CT Report ---
PROCEDURE: CERVICAL SPINE WO INDICATIONS: head/chest inj TECHNIQUE: Noncontrast 3 mm thick sections acquired from the skull base to the T4 level. Sagittal and coronal r eformats were then constructed. For radiation dose reduction, the following was used: automated exp osure control, adjustment of mA and/or kV according to patient size. COMPARISON: None. FINDINGS: Image quality: Moderately limited by patient motion during image acquisition through the cervical tho racic junction. Bones: No fractures or dislocations. Visualized superior ribs are intact. Soft tissues: Prevertebral soft tissues are normal in thickness. No paravertebral hematomas. No ap ical pneumothoraces. IMPRESSION: No acute disease. Moderately severe C6-C7 degenerative disc disease without subluxation. Reviewed by: Jamie Serna MD on 07/04/2020 2:33 PM [place] Approved by: Jamie Serna MD on 07/04/2020 2:33 PM [place] Station ID: [id number]
--- NOTE | 2020-07-04 15:39 | CT Report ---
PROCEDURE: CHEST WO INDICATIONS: head/chest inj TECHNIQUE: Noncontrast 5 mm thick sections acquired from the pulmonary apices to the posterior costophrenic angl es. 7 mm thick coronal and sagittal MIP reformats were then acquired. For radiation dose reduction, the following was used: automated exposure control, adjustment of mA and/or kV according to patient size. COMPARISON: Cervical spine CT extending into the thoracic spine reviewed, same day. FINDINGS: Image quality: Reduced by absence of intravenous contrast. Lungs and pleura: No acute air space opacities. No pleural effusions or pneumothorax. Central and peripheral airways are patent and normal in caliber. Mediastinum: Heart size is normal. No pericardial effusion. No mediastinal adenopathy by size crit eria. Thoracic aorta and central pulmonary arteries are normal in size. Esophagus is normal in anastasiia gayla. No hiatal hernia. Bones and chest wall: No suspicious bony lesions. No vertebral body compression fractures. No axil reid or supraclavicular adenopathy by size criteria. The thyroid is normal in size. Abdomen: Visualized upper abdominal solid organs and bowel loops appear normal in the absence of con trast. IMPRESSION: No trauma found. Quality of visualization is somewhat limited by the absence of intraven ous contrast. Reviewed by: Jamie Serna MD on 07/04/2020 2:38 PM [place] Approved by: Jamie Serna MD on 07/04/2020 2:38 PM [place] Station ID: [id number]
--- NOTE | 2020-07-04 15:42 | CT Report ---
PROCEDURE: HEAD WO INDICATIONS: head/chest inj TECHNIQUE: Noncontrast 4.5 mm thick angled axial sections acquired from the foramen magnum to the vertex. For r adiation dose reduction, the following was used: automated exposure control, adjustment of mA and/or kV according to patient size. COMPARISON: None. FINDINGS: Image quality: Excellent. CSF spaces: Basal cisterns are patent. No extra-axial fluid collections. Ventricles are normal in size and shape. Brain: No midline shift. No intracranial masses or hemorrhage. Woo-white matter interface is norm al. Skull and face: Calvarium and visualized facial bones are intact, without suspicious lesions. Sinuses: Visualized sinuses and mastoids are clear except for a mild degree of lateral mucosal thick ening involving the right maxillary sinus.. IMPRESSION: No trauma found. No intracranial hemorrhage present. Reviewed by: Jamie Serna MD on 07/04/2020 2:40 PM [facility] Approved by: Jamie Serna MD on 07/04/2020 2:40 PM [facility] Station ID: [id number]
[2020-07-04 16:09] VITALS: BP 120/88
== END 2020-07-04 16:23 | disposition home or self-care (01) ==
LOC: EDUNIT# → ED 14:44
DX: S20.212A Contusion of left front wall of thorax, initial encounter (principal); S09.90XA Unspecified injury of head, initial encounter; W17.89XA Other fall from one level to another, initial encounter; Y92.029 Unspecified place in mobile home as the place of occurrence of the external cause; F10.129 Alcohol abuse with intoxication, unspecified; M50.323 Other cervical disc degeneration at C6-C7 level; I10 Essential (primary) hypertension; E11.9 Type 2 diabetes mellitus without complications; F17.200 Nicotine dependence, unspecified, uncomplicated
CPT/HCPCS: 70450; 71250; 72125; 96365; 99284; J3411; J7040

== ENCOUNTER 2020-08-22 19:06 | Outpatient (CLI) | payer MEDICAID | END 2020-08-22 19:07 | disposition critical access hospital (66) | LOC: EMS 19:06 | DX: R40.4 Transient alteration of awareness (principal); M79.601 Pain in right arm | CPT/HCPCS: A0425; A0429; A0999 ==

== ENCOUNTER 2020-08-22 19:40 | Emergency (ER) | payer MEDICAID ==
[2020-08-22] MEDS ORDERED: CHERRY SYRUP 10 ML UDC PO ONE (19:58)
[2020-08-22] MEDS ORDERED: DEXAMETHASONE 10 MG/ML VIAL PO STA (19:58)
[2020-08-22] MEDS ORDERED: KETOROLAC 60 MG/2 ML VIAL IM STA (19:58)
--- NOTE | 2020-08-22 20:10 | ED Physician Documentation ---
History of Present Illness - Stated complaint Stated Complaint: RT ARM PX - Chief complaint Chief Complaint: General - History obtained from History obtained from: Patient, EMS - History of Present Illness Timing: Today Pain level max: 7 Pain level now: 7 - Additonal information Additional information: Patient is a 50-year-old male who was being evicted from his property today by police. They noted that he was intoxicated. The patient complained of right shoulder pain, the police wanted him to come to the hospital to be evaluated. He stated his shoulders been hurting for months and that he does not want to be seen today. The police state that he was having difficulty walking secondary to his alcohol intoxication and so they placed him on an involuntary treatment act hold for intoxication. The patient did not make any homicidal or suicidal statements to them. He states that he has a friend to stay with tonight. Patient states that he does not want any medical care. The pain radiates from the right neck down to the right arm. No weakness. No numbness or tingling. Worse with movement and better with rest. Denies any injury. Review of Systems Ten Systems: 10 systems reviewed and negative Constitutional: denies: Fever, Chills Ears: denies: Ear pain Nose: denies: Rhinorrhea / runny nose, Congestion Cardiac: denies: Chest pain / pressure, Palpitations Respiratory: denies: Dyspnea, Cough GI: denies: Abdominal Pain, Nausea, Vomiting, Diarrhea Skin: denies: Rash Musculoskeletal: denies: Back pain Neurologic: denies: Focal weakness, Numbness, Syncope, Seizure, Confused, Altered mental status, LOC PD PAST MEDICAL HISTORY - Past Medical History Past Medical History: Yes Cardiovascular: Hypertension Endocrine/Autoimmune: Type 2 diabetes - Past Surgical History Past Surgical History: No - Present Medications Home Medications: Ambulatory Orders Medication Instructions Recorded Confirmed No Known Home Medications 08/22/20 08/22/20 - Allergies Allergies/Adverse Reactions: Allergies Allergy/AdvReac Type Severity Reaction Status Date / Time No Known Drug Allergies Allergy Verified 08/22/20 19:43 - Social History Does the pt smoke?: Yes Smoking Status: Current every day smoker Does the pt drink ETOH?: Yes Does the pt have substance abuse?: Yes - Immunizations Immunizations are current?: Yes - POLST Patient has POLST: No PD ED PE NORMAL - Vitals Vital signs reviewed: Yes - General General: Alert and oriented X 3, No acute distress, Well developed/nourished - HEENT HEENT: Atraumatic, PERRL, EOMI, Ears normal, Moist mucous membranes, Pharynx benign - Neck Neck: Supple, no meningeal sign, No bony TTP, No JVD - Cardiac Cardiac: RRR, Strong equal pulses - Respiratory Respiratory: No respiratory distress, Clear bilaterally - Abdomen Abdomen: Soft, Non tender, Non distended - Back Back: No spinal TTP - Derm Derm: Warm and dry - Extremities Extremities: No deformity, No tenderness to palpate, Normal ROM s pain - Neuro Neuro: Alert and oriented X 3, 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 He did receive a dose of dexamethasone and Toradol for his shoulder pain. Refuses any x-rays or further care. Patient is not homicidal, suicidal. Patient states he has somewhere to stay tonight. Patient refuses all further care. The EUNICE from the deputy does not include any statements of suicidality or homicidality. The patient does not appear to be gravely disabled at this time. His speech is clear and coherent. He is ambulating with his cane normally. He is an alcoholic and lives with an elevated alcohol level. Patient was informed that he is welcome to return at any time should he change his mind about further evaluation. This document was made in part using voice recognition software. While efforts are made to proofread this document, sound alike and grammatical errors may occur. Departure - Departure Disposition: 01 Home, Self Care Clinical Impression: Cervical radiculopathy Alcohol intoxication Qualifiers: Complication of substance-induced condition: uncomplicated Qualified Code(s): F10.920 - Alcohol use, unspecified with intoxication, uncomplicated Condition: Stable Instructions: ED Alcohol Intoxication Follow-Up: your,doctor tomorrow [Other] Comments: You need to refrain from alcohol. Follow up with your doctor tomorrow about your neck and shoulder. Return if you change your mind about being seen. Discharge Date/Time: 08/22/20 20:21
--- OUTSIDE RECORDS SUMMARY | 2020-08-22 20:19 | EXTERNAL MEDICAL SUMMARY RPT | Continuity of Care Document ---
:1970 Demographics Phone Unavailable Preferred Language Unknown Marital Status Unknown Latter-Day Affiliation Unknown Race Unknown Ethnic Group Unknown Author Organization [facility] Address [address] [phone] Phone Social History date description facility [phone]
[2020-08-22 20:20] VITALS: BP 120/79
== END 2020-08-22 20:21 | disposition home or self-care (01) ==
LOC: EDUNIT# → ED 19:40
DX: M54.12 Radiculopathy, cervical region (principal); F10.920 Alcohol use, unspecified with intoxication, uncomplicated; I10 Essential (primary) hypertension; E11.9 Type 2 diabetes mellitus without complications; F17.200 Nicotine dependence, unspecified, uncomplicated
CPT/HCPCS: 96372; 99283; 99284; A9270

== ENCOUNTER 2020-08-26 13:00 | Outpatient (CLI) | payer MEDICAID | END 2020-08-26 13:01 | disposition critical access hospital (66) | LOC: EMS 13:00 | DX: F41.9 Anxiety disorder, unspecified (principal) | CPT/HCPCS: A0425; A0429; A0999 ==

== ENCOUNTER 2020-08-26 13:35 | Emergency (ER) | payer MEDICAID ==
--- OUTSIDE RECORDS SUMMARY | 2020-08-26 13:51 | EXTERNAL MEDICAL SUMMARY RPT | Continuity of Care Document ---
:1970 Demographics Phone Unavailable Preferred Language Unknown Marital Status Unknown Amish Affiliation Unknown Race Unknown Ethnic Group Unknown Author Organization [facility] Address [address] [phone] Phone Social History date description facility [phone]
[2020-08-26] MEDS ORDERED: MORPHINE 10 MG/ML VIAL IVP STA (14:04)
[2020-08-26] MEDS ORDERED: ONDANSETRON 4 MG/2 ML VIAL IVP STA (14:04)
[2020-08-26] MEDS ORDERED: SODIUM CHLORIDE 0.9% 1,000 ML IV STA ×2 (14:04)
[2020-08-26] MEDS ORDERED: FAMOTIDINE 20 MG/2 ML VIAL IVP STA (14:04)
[2020-08-26] MEDS ORDERED: LORazepam 2 MG/ML VIAL IVP STA ×2 (14:07→17:11)
--- NOTE | 2020-08-26 14:07 | ED Physician Documentation ---
PD HPI NVD - Stated complaint Stated Complaint: ANXIETY - Chief complaint Chief Complaint: MHE - History obtained from History obtained from: Patient, EMS - History of Present Illness Timing - onset: How many months ago (He states he has been feeling unwell for the past month with nausea vomiting and diarrhea and poor appetite. He has general weakness in the last several days is having increased weakness of the legs in particular. He is also feeling shaky in the last several days with his last drink being 4 days a) Timing - duration: Months (1) Timing - details: Gradual onset, Still present Associated symptoms: Abdominal pain (upper abd), Loss of appetite. No: Fever, Near syncope / syncope, Weight loss Contributing factors: Alcohol use (he states he had not drank the past 4 days.). No: Sick contact, Bad food, Travel, Diabetes Improved by: No: Vomiting Worsened by: Eating, Moving. No: Breathing Similar symptoms before: Diagnosis (he states has had withdrawal in the past without complications. Has not had shoulder problems previously. Onset of shoulder pain after arrested 4 days ago, per patient.) Recently seen: Emergency Dept (seen for senior living clearance 4 days ago and ER report states the patient had some shoulder pain then, but declined further assessment of it at that time.) Review of Systems Constitutional: reports: Myalgias, Fatigue. denies: Fever, Chills, Weight Loss Nose: denies: Rhinorrhea / runny nose, Congestion Throat: denies: Sore throat Cardiac: denies: Palpitations Respiratory: reports: Dyspnea. denies: Cough Neurologic: reports: Other (shakiness the past day). denies: Focal weakness, Numbness, Near syncope Psychiatric: reports: Anxiety. denies: Suicidal, Homicidal, Delusions PD PAST MEDICAL HISTORY - Past Medical History Cardiovascular: Hypertension Respiratory: COPD Neuro: None Endocrine/Autoimmune: Type 2 diabetes - Past Surgical History Past Surgical History: No - Present Medications Home Medications: Ambulatory Orders Medication Instructions Recorded Confirmed Acetaminophen [Tylenol] 650 mg PO Q6H PRN #40 tablet 08/26/20 Azithromycin [Zithromax] 0 mg PO DAILY #6 tablet 08/26/20 Famotidine [Pepcid] 20 mg PO DAILY #20 tablet 08/26/20 LORazepam [Ativan] 1 mg PO Q6H PRN #20 tablet 08/26/20 Loperamide [Imodium] 2 mg PO QID PRN #16 08/26/20 Potassium Chloride 10 meq PO DAILY #15 tab 08/26/20 Promethazine [Phenergan] 25 mg PO Q6H PRN #25 tab 08/26/20 - Allergies Allergies/Adverse Reactions: Allergies Allergy/AdvReac Type Severity Reaction Status Date / Time No Known Drug Allergies Allergy Verified 08/26/20 13:42 - Social History Does the pt smoke?: Yes Smoking Status: Current every day smoker Does the pt drink ETOH?: Yes Does the pt have substance abuse?: Yes Substance Use and Type: Marijuana - Family History Family history: reports: Non contributory - Immunizations Immunizations are current?: Yes - POLST Patient has POLST: No PD ED PE NORMAL - Vitals Vital signs reviewed: Yes - General General: Alert and oriented X 3, No acute distress, Well developed/nourished, Other (disheveled and unkempt. Limited ROM of right shoulder for abduction, but can extend reasonably well. ) - HEENT HEENT: Pharynx benign. No: Moist mucous membranes - Neck Neck: Supple, no meningeal sign, No adenopathy - Cardiac Cardiac: RRR (mild tachycardic), No murmur - Respiratory Respiratory: Clear bilaterally - Abdomen Abdomen: Normal bowel sounds, Soft, Non distended, No organomegaly, Other (tender epigastric to RUQ. Some guarding. No percussion tenderness. ) - Male Male : Deferred - Rectal Rectal: Deferred - Back Back: No CVA TTP - Derm Derm: Normal color, Warm and dry, No rash - Extremities Extremities: No tenderness to palpate, Normal ROM s pain, No edema, No calf tenderness / cord - Neuro Neuro: Alert and oriented X 3, No motor deficit, Normal speech Results - Vitals Vitals: Vital Signs - 24 hr 08/26/20 08/26/20 08/26/20 13:40 17:59 18:15 Temperature 37.2 C Heart Rate 100 67 87 Respiratory 19 17 16 Rate Blood Pressure 124/93 H 133/100 H 128/91 H O2 Saturation 100 100 99 Oxygen O2 Source Room air - Labs Labs: Laboratory Tests 08/26/20 08/26/20 08/26/20 14:18 14:18 14:28 WBC 6.7 RBC 4.39 L Hgb 15.1 Hct 44.2 MCV 100.7 H MCH 34.4 H MCHC 34.2 RDW 13.2 Plt Count 149 MPV 10.5 Neut # (Auto) 4.2 Lymph # (Auto) 2.0 Evangeline # (Auto) 0.3 Eos # (Auto) 0.1 Baso # (Auto) 0.1 Absolute Nucleated RBC 0.00 Nucleated RBC % 0.0 Manual Slide Review Indicated WBC Morphology NORMAL APPEARANCE Platelet Estimate NORMAL (130-450,000) Platelet Morphology NORMAL APPEARANCE RBC Morph Micro Appear NORMAL APPEARANCE Sodium Potassium Chloride Carbon Dioxide Anion Gap BUN Creatinine Estimated GFR (MDRD) Glucose Calcium Magnesium Total Bilirubin AST ALT Alkaline Phosphatase Total Protein Albumin Globulin Albumin/Globulin Ratio Lipase TSH Urine Color YELLOW Urine Clarity CLEAR Urine pH 7.0 Ur Specific Elton 1.010 Urine Protein NEGATIVE Urine Glucose (UA) NEGATIVE Urine Ketones NEGATIVE Urine Occult Blood NEGATIVE Urine Nitrite NEGATIVE Urine Bilirubin NEGATIVE Urine Urobilinogen 2 H Ur Leukocyte Esterase NEGATIVE Ur Microscopic Review NOT INDICATED Urine Culture Comments NOT INDICATED Salicylates Urine Opiates Screen NEGATIVE Ur Oxycodone Screen NEGATIVE Urine Methadone Screen NEGATIVE Ur Propoxyphene Screen NEGATIVE Acetaminophen Ur Barbiturates Screen NEGATIVE Ur Tricyclics Screen NEGATIVE Ur Phencyclidine Scrn NEGATIVE Ur Amphetamine Screen NEGATIVE U Methamphetamines Scrn NEGATIVE U Benzodiazepines Scrn NEGATIVE Urine Cocaine Screen NEGATIVE U Cannabinoids Screen NEGATIVE Ethyl Alcohol 08/26/20 08/26/20 14:28 14:28 WBC RBC Hgb Hct MCV MCH MCHC RDW Plt Count MPV Neut # (Auto) Lymph # (Auto) Evangeline # (Auto) Eos # (Auto) Baso # (Auto) Absolute Nucleated RBC Nucleated RBC % Manual Slide Review WBC Morphology Platelet Estimate Platelet Morphology RBC Morph Micro Appear Sodium 137 Potassium 2.8 L Chloride 99 L Carbon Dioxide 26 Anion Gap 12.0 BUN 7 Creatinine 0.7 Estimated GFR (MDRD) 119 Glucose 113 H Calcium 9.1 Magnesium 2.1 Total Bilirubin 1.6 H AST 35 ALT 19 Alkaline Phosphatase 80 Total Protein 7.2 Albumin 4.2 Globulin 3.0 Albumin/Globulin Ratio 1.4 Lipase 22 TSH 4.19 Urine Color Urine Clarity Urine pH Ur Specific Elton Urine Protein Urine Glucose (UA) Urine Ketones Urine Occult Blood Urine Nitrite Urine Bilirubin Urine Urobilinogen Ur Leukocyte Esterase Ur Microscopic Review Urine Culture Comments Salicylates < 6.0 Urine Opiates Screen Ur Oxycodone Screen Urine Methadone Screen Ur Propoxyphene Screen Acetaminophen < 10 L Ur Barbiturates Screen Ur Tricyclics Screen Ur Phencyclidine Scrn Ur Amphetamine Screen U Methamphetamines Scrn U Benzodiazepines Scrn Urine Cocaine Screen U Cannabinoids Screen Ethyl Alcohol < 5.0 - Rads (name of study) RUQ abd U/S Radiology: Prelim report reviewed (no acute process), See rad report right shoulder Radiology: Prelim report reviewed (no fractures, no arthritic changes.), See rad report PD MEDICAL DECISION MAKING - ED course Complexity details: reviewed results (abd U/S appears normal. LFTs and lipase are good. Has low K which can account for his feeling of leg weakness. ), considered differential (having some alcohol withdrawal with shaky and mild tachy but still low CIWA if it were scored. general weakness from dehydrated and low K. Can treat for CHARLENE, K replacement, and shoulder pain. Diarrhea for a month but no weight loss. Would be good to get stool studies, but he is not having BM here. ), d/w patient ED course: could empirically treat for diarrhea (Zpack per ID guidelines) as he is less likely to bring in stool sample for studies. Can try stool studies if not improved. Departure - Departure Disposition: 01 Home, Self Care Clinical Impression: Alcoholism, Nausea vomiting and diarrhea, Dehydration, Hypokalemia Alcohol withdrawal Qualifiers: Complication of substance-induced condition: uncomplicated Qualified Code(s): F10.230 - Alcohol dependence with withdrawal, uncomplicated Right shoulder strain Qualifiers: Encounter type: initial encounter Qualified Code(s): S46.911A - Strain of unspecified muscle, fascia and tendon at shoulder and upper arm level, right arm, initial encounter Condition: Stable Record reviewed to determine appropriate education?: Yes Instructions: ED Withdrawal Alcohol, ED Dehydration Follow-Up: [facility] [Provider Group] [facility] [place] [Provider Group] Prescriptions: LORazepam [Ativan] 1 mg PO Q6H PRN #20 tablet PRN Reason: Alcohol Withdrawal Loperamide [Imodium] 2 mg PO QID PRN #16 PRN Reason: Diarrhea Famotidine [Pepcid] 20 mg PO DAILY #20 tablet Promethazine [Phenergan] 25 mg PO Q6H PRN #25 tab PRN Reason: Nausea / Vomiting Potassium Chloride 10 meq PO DAILY #15 tab Acetaminophen [Tylenol] 650 mg PO Q6H PRN #40 tablet PRN Reason: PRN PAIN &/OR FEVER Azithromycin [Zithromax] 0 mg PO DAILY #6 tablet Comments: For your nausea and diarrhea, use promethazine and loperamide as needed. Famotidine daily for the next few weeks to reduce stomach acids and allow healing of it. Lorazepam every 6-8 hours as needed for anxiety/alcohol withdrawal symptoms, with tapering the use of it over several days to a week as able. Zithromax empirically for your diarrhea to treat potential bacterial causes, unless you are able to bring a stool sample in for more direct testing to see which antibiotic is best for it. Follow up with [facility] in the next week, call for an appt. Discharge Date/Time: 08/26/20 18:35
[2020-08-26 14:35] LABS: BILIRUBIN,URINE NEGATIVE (NEGATIVE); GLUCOSE, URINE (UA) NEGATIVE (NEGATIVE); KETONES,URINE (UA) NEGATIVE (NEGATIVE); LEUKOCYTE ESTERASE, URINE NEGATIVE (NEGATIVE); NITRITE,URINE NEGATIVE (NEGATIVE); OCCULT BLOOD,URINE NEGATIVE (NEGATIVE); PROTEIN,URINE NEGATIVE (NEGATIVE); UROBILINOGEN,URINE 2 E.U./dL (NORMAL)
[2020-08-26 14:37] LABS: CLARITY,URINE CLEAR (CLEAR)
--- NOTE | 2020-08-26 14:37 | XRAY Report ---
PROCEDURE: Shoulder 3 View RT INDICATIONS: shoulder pain for a month TECHNIQUE: 3 views of the shoulder were acquired. COMPARISON: None. FINDINGS: Bones: No fractures or dislocations. No suspicious bony lesions. Visualized ribs appear intact. Soft tissues: No suspicious soft tissue calcifications. IMPRESSION: No fracture. No osseous lesion. If there are persistent symptoms or continued clinical concern for pa thology, then repeat plain film radiographs (7-10 days) or advanced imaging (CT, MR, bone scan) shoul d be considered for further evaluation. Reviewed by: Adamaris Morley MD, PhD on 08/26/2020 2:36 PM PDT Approved by: Adamaris Morley MD, PhD on 08/26/2020 2:36 PM PDT Station ID: [id number]
[2020-08-26 14:40] LABS: BASOPHILS # (AUTO) 0.1 10^3/uL (0.0-0.1); BASOPHILS % (AUTO) 0.7 %; EOSINOPHILS # (AUTO) 0.1 10^3/uL (0.0-0.7); EOSINOPHILS % (AUTO) 1.2 %; HCT - HEMATOCRIT 44.2 % (42.0-52.0); HGB - HEMOGLOBIN 15.1 g/dL (14.0-18.0); LYMPHOCYTES % (AUTO) 29.7 %; MEAN CORPUSCULAR HEMOGLOBIN 34.4 pg (27.0-31.0); MEAN CORPUSCULAR HGB CONC 34.2 g/dL (32.0-36.0); MEAN CORPUSCULAR VOLUME 100.7 fL (80.0-94.0); MEAN PLATELET VOLUME 10.5 fL (7.4-11.4); MONOCYTES # (AUTO) 0.3 10^3/uL (0.0-1.0); MONOCYTES % (AUTO) 4.8 %; NEUTROPHILS # (AUTO) 4.2 10^3/uL (1.5-6.6); PLT - PLATELET COUNT 149 10^3/uL (130-450); RED BLOOD COUNT 4.39 10^6/uL (4.70-6.10); RED CELL DISTRIBUTION WIDTH 13.2 % (12.0-15.0); WHITE BLOOD COUNT 6.7 x10^3/uL (4.8-10.8)
[2020-08-26 14:42] LABS: MUDS CUTOFF CONCENTRATIONS CUTOFF CONC BELOW:
[2020-08-26 14:42] LABS: SLIDE REVIEW? Indicated
[2020-08-26 14:49] LABS: ACETAMINOPHEN < 10 ug/mL (10-30); ALBUMIN 4.2 g/dL (3.2-5.5); ALBUMIN/GLOBULIN RATIO 1.4 (1.0-2.2); ALKALINE PHOSPHATASE 80 IU/L (42-121); ALT ALANINE AMINOTRANSFERASE 19 IU/L (10-60); AST ASPARTATE AMINOTRANSFERASE 35 IU/L (10-42); BILIRUBIN,TOTAL 1.6 mg/dL (0.2-1.0); BUN - BLOOD UREA NITROGEN 7 mg/dL (6-20); CALCIUM 9.1 mg/dL (8.5-10.3); CARBON DIOXIDE - CO2 26 mmol/L (21-32); CHLORIDE 99 mmol/L (101-111); CREATININE 0.7 mg/dL (0.6-1.2); ETOH - ETHANOL < 5.0 mg/dL; GFR - MDRD 119 (>89); GLUCOSE 113 mg/dL (70-100); LIPASE 22 U/L (22-51); MAGNESIUM 2.1 mg/dL (1.7-2.8); POTASSIUM 2.8 mmol/L (3.5-5.0); SALICYLATE < 6.0 mg/dL; SODIUM 137 mmol/L (135-145); TOTAL PROTEIN 7.2 g/dL (6.7-8.2)
[2020-08-26 14:54] LABS: AMPHETAMINE SCREEN,URINE NEGATIVE (NEGATIVE); BARBITURATE SCREEN,UR NEGATIVE (NEGATIVE); BENZODIAZEPINES SCREEN, URINE NEGATIVE (NEGATIVE); COCAINE SCREEN URINE NEGATIVE (NEGATIVE); METHADONE SCREEN, URINE NEGATIVE (NEGATIVE); METHAMPHETAMINES SCREEN, URINE NEGATIVE (NEGATIVE); OPIATE SCREEN, URINE NEGATIVE (NEGATIVE); OXYCODONE SCREEN, URINE NEGATIVE (NEGATIVE); PROPOXYPHENE SCREEN, URINE NEGATIVE (NEGATIVE); THC CANNABINOID SCREEN, URINE NEGATIVE (NEGATIVE); TRICYCLIC ANTIDEPRESSANT,URINE NEGATIVE (NEGATIVE)
[2020-08-26 14:55] LABS: PLATELET ESTIMATE, MANUAL NORMAL (130-450,000) (NORMAL); PLATELET MORPHOLOGY NORMAL APPEARANCE (NORMAL); RBC MORPHOLOGY (MULTIPLE) NORMAL APPEARANCE (NORMAL); WBC MORPHOLOGY (MULTIPLE) NORMAL APPEARANCE (NORMAL)
[2020-08-26] MEDS ORDERED: POTASSIUM CHLORIDE 20 MEQ TABLET PO STA (15:15)
[2020-08-26] MEDS ORDERED: POTASSIUM CHLOR 10 MEQ/100 ML 10 MEQ/100 ML BAG IV STA (15:15)
[2020-08-26] MEDS ORDERED: THIAMINE INJ 100 MG in SODIUM CHLORIDE 0.9% 50 ML IV STA (15:59)
--- NOTE | 2020-08-26 16:02 | Ultrasound Report ---
PROCEDURE: Abdomen Limited INDICATIONS: upper abd pain and vomiting TECHNIQUE: Real-time focused scanning was performed of the right upper quadrant, with image documentation. COMPARISON: CT abdomen pelvis 11/15/2016 FINDINGS: The liver is within normal size limits without discrete mass lesion identified. Gallbladder demonstrates no stones, wall thickening, or pericholecystic fluid. No intra or extrahepatic biliary ductal dilatation. Common bile duct measures up to 0.4 cm. Visualized pancreas appears unremarkable sonographically. The right kidney measures 9.7 cm. No hydronephrosis. No free fluid identified within the right upper quadrant. IMPRESSION: 1. No acute sonographic abnormality identified in the right upper quadrant. Specifically, no evidence of cholelithiasis or cholecystitis. Reviewed by: Felipe Valerio MD on 08/26/2020 4:01 PM PDT Approved by: Felipe Valerio MD on 08/26/2020 4:01 PM PDT Station ID: [id number]
[2020-08-26 18:16] VITALS: BP 128/91
== END 2020-08-26 18:35 | disposition home or self-care (01) ==
LOC: EDUNIT# → ED 13:35
DX: F10.230 Alcohol dependence with withdrawal, uncomplicated (principal); R11.2 Nausea with vomiting, unspecified; R19.7 Diarrhea, unspecified; E86.0 Dehydration; E87.6 Hypokalemia; S46.911A Strain of unspecified muscle, fascia and tendon at shoulder and upper arm level, right arm, initial encounter; X58.XXXA Exposure to other specified factors, initial encounter; Y93.89 Activity, other specified; E11.9 Type 2 diabetes mellitus without complications; F17.200 Nicotine dependence, unspecified, uncomplicated
CPT/HCPCS: 36415; 80053; 80306; 80307; 80320; 80329; 81001; 81003; 83690; 83735; 84443; 85025; 87086; 96365; 96366; 96368; 96375; 96376; 99283

== ENCOUNTER 2020-08-26 23:03 | Emergency (ER) | payer MEDICAID ==
--- OUTSIDE RECORDS SUMMARY | 2020-08-26 23:07 | EXTERNAL MEDICAL SUMMARY RPT | Continuity of Care Document ---
:1970 Demographics Phone Unavailable Preferred Language Unknown Marital Status Unknown Spiritism Affiliation Unknown Race Unknown Ethnic Group Unknown Author Organization [facility] Address [address] [place] [address] Phone Social History date description facility [phone]
--- OUTSIDE RECORDS SUMMARY | 2020-08-26 23:14 | EXTERNAL MEDICAL SUMMARY RPT | Continuity of Care Document ---
:1970 Demographics Phone Unavailable Preferred Language Unknown Marital Status Unknown Jain Affiliation Unknown Race Unknown Ethnic Group Unknown Author Organization [facility] Address [address] [place] [address] Phone Social History date description facility [phone]
[2020-08-27] MEDS ORDERED: BACITRACIN ZINC OINT 1 PACKET TOP STA (00:38)
--- NOTE | 2020-08-27 00:43 | ED Physician Documentation ---
History of Present Illness - Stated complaint Stated Complaint: SOA, LOWER BACK PX - Chief complaint Chief Complaint: Ext Problem - History obtained from History obtained from: Patient - Additonal information Additional information: 50-year-old man presents complaining of chronic pain to his right arm as well as some scattered irritation at the flexural crease of the arm. No other complaints at this time. Review of Systems Skin: reports: Other (irritation) Musculoskeletal: reports: Extremity pain Neurologic: denies: Focal weakness, Numbness PD PAST MEDICAL HISTORY - Past Medical History Past Medical History: Yes Cardiovascular: Hypertension Respiratory: COPD Neuro: None Endocrine/Autoimmune: Type 2 diabetes Psych: Anxiety - Past Surgical History Past Surgical History: No - Present Medications Home Medications: Ambulatory Orders Medication Instructions Recorded Confirmed Acetaminophen [Tylenol] 650 mg PO Q6H PRN #40 tablet 08/26/20 08/26/20 Azithromycin [Zithromax] 0 mg PO DAILY #6 tablet 08/26/20 Famotidine [Pepcid] 20 mg PO DAILY #20 tablet 08/26/20 LORazepam [Ativan] 1 mg PO Q6H PRN #20 tablet 08/26/20 08/26/20 Loperamide [Imodium] 2 mg PO QID PRN #16 08/26/20 08/26/20 Potassium Chloride 10 meq PO DAILY #15 tab 08/26/20 08/26/20 Promethazine [Phenergan] 25 mg PO Q6H PRN #25 tab 08/26/20 08/26/20 - Allergies Allergies/Adverse Reactions: Allergies Allergy/AdvReac Type Severity Reaction Status Date / Time No Known Drug Allergies Allergy Verified 08/26/20 23:28 - Social History Does the pt smoke?: Yes Smoking Status: Current every day smoker Does the pt drink ETOH?: Yes Does the pt have substance abuse?: Yes - Immunizations Immunizations are current?: Yes - POLST Patient has POLST: No PD ED PE NORMAL - Vitals Vital signs reviewed: Yes - General General: Alert and oriented X 3, No acute distress - HEENT HEENT: Atraumatic, PERRL, EOMI - Neck Neck: Supple, no meningeal sign, No bony TTP - Derm Derm: Normal color, Warm and dry, Other (irritation to R flexural crease of arm) - Extremities Extremities: No deformity, No tenderness to palpate, Normal ROM s pain, Other (normal BL strength) - Neuro Neuro: Alert and oriented X 3, No motor deficit, No sensory deficit - Psych Psych: Normal mood, Normal affect Results - Vitals Vitals: Vital Signs - 24 hr 08/26/20 08/26/20 23:27 23:32 Temperature 36.8 C 36.8 C Heart Rate 105 H 105 H Respiratory 16 16 Rate Blood Pressure 129/93 H 129/93 H O2 Saturation 99 99 Oxygen O2 Source Room air PD MEDICAL DECISION MAKING - ED course ED course: 50-year-old man presents for evaluation of chronic right arm pain as well as some mild irritation at the right crease of the arm. He stated in triage that he was planning on staying [facility] a [facility] but did not have enough money and so they sent him here. Departure - Departure Disposition: 01 Home, Self Care Clinical Impression: Skin irritation, Cervical radiculopathy Condition: Good Instructions: Radiculopathy Cervical Comments: You are seen in the emergency department for skin irritation to the right arm as well as cervical radiculopathy causing chronic arm pain. Please follow-up with your primary doctor. Return to the emergency department if you experience any new or worsening symptoms or have other concerns
[2020-08-27 05:23] VITALS: BP 122/75
--- NOTE | 2020-09-03 13:44 | ED Physician Documentation ---
ED Addendum - Addendum Addendum: 09/03/20 13:43 d/w pharmacist Chrissy who called to confirm Dr. Haines wanted to prescribe 20 ativan tablets to Mr. Matos. The prescription said "copy only" so she called our hospital to confirm. On chart review I saw that he did indeed dispense this prescription 08/26/20 and confirmed with the pharmacy.
== END 2020-08-27 05:22 | disposition home or self-care (01) ==
LOC: ED 23:03
DX: R23.9 Unspecified skin changes (principal); M54.12 Radiculopathy, cervical region; F17.200 Nicotine dependence, unspecified, uncomplicated; F10.230 Alcohol dependence with withdrawal, uncomplicated; R11.2 Nausea with vomiting, unspecified; R19.7 Diarrhea, unspecified; E86.0 Dehydration; E87.6 Hypokalemia; S46.911A Strain of unspecified muscle, fascia and tendon at shoulder and upper arm level, right arm, initial encounter; X58.XXXA Exposure to other specified factors, initial encounter; Y93.89 Activity, other specified; E11.9 Type 2 diabetes mellitus without complications
CPT/HCPCS: 36415; 73030; 76705; 80053; 80306; 80307; 80320; 80329; 81003; 83690; 83735; 84443; 85025; 96365; 96366; 96368; 96375; 96376; 99282; 99283; 99284; A9270; J2060; J3411; J7040; 81001; 87086

== ENCOUNTER 2023-03-15 12:58 | Outpatient (CLI) | payer MEDICAID ==
[2023-03-15 20:09] LABS: BASOPHILS # (AUTO) 0.1 10^3/uL (0.0-0.1); BASOPHILS % (AUTO) 1.6 %; EOSINOPHILS # (AUTO) 0.3 10^3/uL (0.0-0.7); EOSINOPHILS % (AUTO) 6.7 %; HCT - HEMATOCRIT 41.2 % (42.0-52.0); HGB - HEMOGLOBIN 13.1 g/dL (14.0-18.0); LYMPHOCYTES # (AUTO) 1.7 10^3/uL (1.5-3.5); LYMPHOCYTES % (AUTO) 40.2 %; MEAN CORPUSCULAR HEMOGLOBIN 33.6 pg (27.0-31.0); MEAN CORPUSCULAR HGB CONC 31.8 g/dL (32.0-36.0); MEAN CORPUSCULAR VOLUME 105.6 fL (80.0-94.0); MEAN PLATELET VOLUME 10.5 fL (7.4-11.4); MONOCYTES # (AUTO) 0.3 10^3/uL (0.0-1.0); MONOCYTES % (AUTO) 6.2 %; NEUTROPHILS % (AUTO) 45.1 %; PLT - PLATELET COUNT 178 10^3/uL (130-450); RED CELL DISTRIBUTION WIDTH 15.3 % (12.0-15.0); WHITE BLOOD COUNT 4.3 x10^3/uL (4.8-10.8)
[2023-03-15 20:21] LABS: ALBUMIN 4.1 g/dL (3.2-5.5); ALKALINE PHOSPHATASE 78 IU/L (42-121); ALT ALANINE AMINOTRANSFERASE 8 IU/L (10-60); AST ASPARTATE AMINOTRANSFERASE 14 IU/L (10-42); BILIRUBIN,TOTAL 0.7 mg/dL (0.2-1.0); BUN - BLOOD UREA NITROGEN 7 mg/dL (6-20); CALCIUM 8.7 mg/dL (8.5-10.3); CARBON DIOXIDE - CO2 30 mmol/L (21-32); CHLORIDE 106 mmol/L (101-111); CHOL/HDL RATIO 1.9 (<5.0); CHOLESTEROL 111 mg/dL; CREATININE 0.7 mg/dL (0.6-1.3); GFR - MDRD 118 (>89); GLUCOSE 94 mg/dL (74-104); HDL CHOLESTEROL 58 mg/dL; LDL CHOLESTEROL,CALCULATED 42 mg/dL; LDL/HDL RATIO 0.7 (<3.6); POTASSIUM 3.4 mmol/L (3.5-4.5); SODIUM 140 mmol/L (135-145); TOTAL PROTEIN 6.2 g/dL (6.4-8.9); TRIGLYCERIDES 56 mg/dL (48-352); VLDL CHOLESTEROL 11 mg/dL
[2023-03-15 20:34] LABS: THYROID STIMULATING HORMONE 1.52 uIU/mL (0.34-5.60)
== END 2023-03-15 12:59 | disposition home or self-care (01) ==
LOC: LAB.S 12:58
PROVIDERS: ATTEND Physician Assistant Medical
DX: Z13.9 Encounter for screening, unspecified (principal)
CPT/HCPCS: 36415; 80053; 80061; 83721; 84153; 84443; 85025